=== PATIENT | male | born 1945 | race African-American/Black ===

== ENCOUNTER 2022-11-10 09:12 | Inpatient (IN) | payer MEDICARE, OTHER ==
[~2022-11-10] VITALS: Ht 167.6 cm; Wt 35.8 kg
--- NOTE | 2022-11-10 09:12 | NUR ---
CARLYN FOR ALOC. BLOOD SUGAR LOW AT 23, MD MADE AWARE. IV DEXTROSE GIVEN ORDERED. PATIENT NON-VERBAL UPON ADMISSION. TOLERATING WELL ON ROOM AIR.
[2022-11-10] MEDS ORDERED: DEXTROSE 50%-WATER 50 ML DISP.SYRIN ONE (09:36)
--- NOTE | 2022-11-10 09:53 | NUR ---
COVID SWAB COLLECTED AND SENT TO LAB.
[2022-11-10] MEDS ORDERED: DEXTROSE 50%-WATER 50 ML DISP.SYRIN IVP ONE (10:00)
--- NOTE | 2022-11-10 10:04 | NUR ---
ACCUCHECK RETAKEN FOLLOWING DEXTROSE INFUSION, BG NOW 71. MADE AWARE.
[2022-11-10 10:11] LABS: BASOPHILS % (AUTO) 0.4 % (0.0-2.0); EOSINOPHILS % (AUTO) 0.4 % (0.0-6.0); HEMATOCRIT 46 % (39-51); HEMOGLOBIN 14.7 g/dL (13.5-17.5); LYMPHOCYTES # (AUTO) 0.9 K/uL (0.8-4.8); LYMPHOCYTES % (AUTO) 24.8 % (20.0-44.0); MEAN CORPUSCULAR HGB CONC 32 g/dl (31.0-36.0); MEAN CORPUSCULAR VOLUME 91 fL (80-96); MONOCYTES # (AUTO) 0.2 K/uL (0.1-1.30); MONOCYTES % (AUTO) 5.6 % (2.0-12.0); NEUTROPHILS # (AUTO) 2.6 K/uL (1.8-8.9); NEUTROPHILS % (AUTO) 68.8 % (43.0-81.0); PLATELET COUNT (AUTO) 187 K/uL (150-450); RED BLOOD CELL COUNT(AUTO) 5.08 MIL/uL (4.5-6.0); WHITE BLOOD COUNT (AUTO) 3.8 K/uL (4.3-11.0)
--- NOTE | 2022-11-10 10:54 | NUR ---
FAUSTINA 298 Addendum: 11/10/22 at 1055 by FILI MD NANCY RAMSEY
[2022-11-10 10:56] LABS: SERUM AMMONIA 10 umol/L (11-32)
--- NOTE | 2022-11-10 11:07 | NUR ---
FABIO OLVERA [facility] [phone]
--- NOTE | 2022-11-10 11:08 | NUR ---
LACTIC ACID 2.3, MADE AWARE
[2022-11-10 11:10] LABS: CALCIUM, SERUM 10.3 mg/dL (8.5-10.1); CARBON DIOXIDE 31 mmol/L (21-32); CHLORIDE 109 mmol/L (98-107); CREATININE 1.3 mg/dL (0.6-1.3); GLUCOSE 142 mg/dL (74-106); POTASSIUM 4.4 mmol/L (3.5-5.1); SODIUM SERUM 151 mmol/L (136-145); UREA NITROGEN, BLOOD 36 mg/dL (7-18)
[2022-11-10 11:16] LABS: ALANINE AMINOTRANSFERASE 172 U/L (12-78); ALBUMIN 3.7 g/dL (3.4-5.0); ALKALINE PHOSPHATASE 126 U/L (46-116); ASPARTATE AMINOTRANSFERASE 118 U/L (15-37); BILIRUBIN,DIRECT 0.1 mg/dL (0.0-0.2); BILIRUBIN,TOTAL 0.3 mg/dL (0.2-1.0); TOTAL PROTEIN, SERUM 8.6 g/dL (6.4-8.2)
[2022-11-10] MEDS ORDERED: IV NS 0.9% 1,000 ML BAG IV ONE (11:30)
[2022-11-10 11:45] LABS: THYROID STIMULATING HORMONE 2.241 uIU/mL (0.358-3.74)
--- NOTE | 2022-11-10 13:47 | NUR ---
Report given to ALANA Pedraza
--- NOTE | 2022-11-10 14:00 | NUR ---
THE PATIENT ADMITTED FROM ER WITH GRACE TO ROOM 327-1, ADMIT DX IS AMS. PATIENT AO X 1, ABLE TO RESPONDS ALL STIMULI. NO MEDICAL Hx, INTACT IV LINE ON RIGHT AC 20G. ALL V/S ARE STABLE. CALL LIGHT WITHIN REACH,WILL CONTINUE TO MONITOR.
--- NOTE | 2022-11-10 14:05 | NUR ---
Patient transfered to [facility], all care endorsed to ALANA Pedraza
[2022-11-10] MEDS ORDERED: MAG HYDROX/AL HYDROX/SIMETH 30 ML UDC PO PRN (15:30)
[2022-11-10] MEDS ORDERED: ONDANSETRON HCL/PF 4 MG/2 ML VIAL IVP PRN (15:30)
[2022-11-10] MEDS ORDERED: MAGNESIUM HYDROXIDE 30 ML UDC PO PRN (15:30)
[2022-11-10] MEDS ORDERED: ACETAMINOPHEN 325 MG TABLET PO PRN (15:30)
[2022-11-10] MEDS ORDERED: ZOLPIDEM TARTRATE 5 MG TABLET PO PRN (15:30)
[2022-11-10] MEDS ORDERED: Z GUARD REMEDY 4 OZ OINT TP PRN (15:30)
[2022-11-10] MEDS: IV D5/0.45 NACL 1,000 ML IV PRN (16:09)
[2022-11-10] MEDS: BLOOD SUGAR DIAGNOSTIC 1 EACH STRIP IN SCH (17:35)
--- NOTE | 2022-11-10 18:00 | NUR ---
RN CLOSING NOTE PATIENT RESTING IN BED. IN NO ACUTE DISTRESS OBSERVED. RESPIRATORY EVEN AND UNLABORED IN ROOM AIR, NO SOB OR DESATURATION NOTED. SKIN IS WARM TO TOUCH KEEP CLEAN/DRY. KEPT ELEVATED HOB FOR ENSURE AIRWAY/ASPIRATION PRECAUTION, AND LOWEST BED POSITION. BED ALARM IS ON AT ALL THE TIME FOR SAFETY. CALL LIGHT WITHIN REACH, WILL ENDORSE SENIOR JAVA DEVELOPER.
--- NOTE | 2022-11-10 18:12 | NUR ---
PATIENT RECEIVED ORDER OKAY TO USE STRAIGHT CATH TO COLLECT URINE SAMPLES.
--- NOTE | 2022-11-10 19:30 | NUR ---
SPOOLING OPERATOR OPENING NOTES - RECEIVED PATIENT AWAKE IN BED. A/O X0, HARD OF HEARING, DOES NOT RESPOND TO QUESTIONS BUT MAKES GOOD EYE CONTACT. BREATHING EVEN AND NON-LABORED ON ROOM AIR. NOT IN APPARENT DISTRESS. NO S/S OF PAIN OR DISCOMFORT AT THIS TIME. ON TELE MONITOR READING SINUS BRADYCARDIA AT 55 BPM. HAS RIGHT ANTECUBITAL IV ACCESS #20G WITH D5 1/2NS RUNNING AT 75 ML/HR. NO S/S OF INFILTRATION. ON BED REST AND NEEDS TOTAL ASSIST WITH ADLS. SAFETY PRECAUTIONS IN PLACE: BED LOCKED AND IN LOWEST POSITION, SIDE RAILS UP X3, CALL LIGHT WITHIN REACH. WILL CONTINUE PLAN OF CARE.
[2022-11-10 20:00] VITALS: BP 108/69
[2022-11-10] MEDS: ENOXAPARIN SODIUM 30 MG/0.3 ML DISP.SYRIN SQ SCH (20:55)
--- NOTE | 2022-11-10 23:00 | NUR ---
RECEIVED CALL FROM FABIO (NIECE), SHE SAID SHE IS THE PATIENT'S' POA AND HE HAS NEVER BEEN . DISCUSSED TX PLAN AND VERBALIZED UNDERSTANDING. SHE ALSO GAVE MORE PMI ABOUT THE PATIENT. FORMER HEAVY SMOKER AND ALCOHOL CONSUMPTION. EATS FAST FOOD ONLY BUT THESE PAST FEW DAYS, REFUSING TO EAT. REFUSE TO AMBULATE AND STAYS IN BED ONLY. BEING SEEN BY A HOME HEALTH NURSE. HAS KNEE PAIN BUT REFUSED PAIN PRESCRIPTION FROM PCP. CONFIRMED THAT NIECE WANTS THE PATIENT TO BE FULL CODE AND IF NEEDED, SHE IS OKAY WITH PEG FEEDING.
[2022-11-11] VITALS (72 sets, daily range): BP systolic 72–158; BP diastolic 47–91
[2022-11-11] MEDS: BLOOD SUGAR DIAGNOSTIC 1 EACH STRIP IN SCH ×4 (00:47→17:57)
--- NOTE | 2022-11-11 04:23 | NUR ---
0352: CONSUMER SAFETY INSPECTOR INFORMED ME THAT PATIENT'S HR WENT DOWN TO 30's. HE COVERED HIS FACE WITH A BLANKET AND WHEN I REMOVED IT, PATIENT IS UNRESPONSIVE AND DROOLING. ACTIVATED CODE BLUE. 0353: STARTED CPR, BS 155, BP 96/33 HR 102 0355: EKG SHOWS SINUS TACHYCARDIA 0357: 1ST DOSE OF EPI THEN BICARB GIVEN. PATIENT INTUBATED 0400: 2ND DOSE OF EPI GIVEN. BP 98/24 HR 122 0402: ASYSTOLE. PRONOUNCED BY MARY DILL MD 0407: PATIENT MOVED HIS MOUTH BEFORE POST-MORTEM CARE. ALANA WILSON AND ALANA COOMBS CHECKED FOR PULSE. CALLED RT AND MD, ORDERED TO TRANSFER TO ICU 0422: PATIENT TRANSFERRED TO ICU. REPORT GIVEN TO ALANA HOWARD AND ALANA SABILLON
--- NOTE | 2022-11-11 04:25 | NUR ---
ICU/RN: RECEIVED PT POST CODE BLUE FROM 3W. REPORT FROM JANUARY RN. UNABLE TO OBTAIN BP AT THIS TIME. PACK PULLER ED SPOKE WITH FAMILY AND PT CODE STATUS WAS CHANGED TO DNR. WILL CONTINUE WITH PLAN OF CARE. Addendum: 11/11/22 at 0502 by RAMANDEEP NUÑEZ RN PTS TEMP WAS 86 DEGREES UPON ARRIVAL TO ICU. REWARMING MEASURE INITIATED. GUERLINE HUGGER AND WARM BLANKETS APPLIED.
[2022-11-11] MEDS ORDERED: PHENYLEPHRINE 10 MG/ML VIAL ONE ×3 (04:54→05:22)
[2022-11-11] MEDS: PHENYLEPHRINE 100 MG in IV NS 0.9% 240 ML IV PRN (05:19)
--- NOTE | 2022-11-11 05:52 | NUR ---
ICU/RN: PTS NIECE AT BEDSIDE. GAVE UPDATE ON PTS STATUS.
--- NOTE | 2022-11-11 06:02 | NUR ---
ICU/RN: RT AT BEDSIDE FOR ABG.
--- NOTE | 2022-11-11 06:20 | NUR ---
ICU/RN: STILL UNABLE TO READ PT BP. SPOKE WITH ESHA EDUARDO AND RECEIVED NEW ORDERS FOR SECOND VASOPRESSOR.
--- NOTE | 2022-11-11 06:28 | NUR ---
ICU/RN: RT UNABLE TO OBTAIN ABG. PT IS SEVERELY HYPOTENSIVE.
[2022-11-11] MEDS ORDERED: VASOPRESSIN INJ 40 UNIT in IV NS 0.9% 38 ML IV PRN (06:30)
[2022-11-11 06:37] LABS: ABG BASE EXCESS -7.8 mmol/L; ABG OXYGEN SATURATION 99.5 % (92.0-98.5); ABG PCO2 34.8 mmHg (35.0-45.0); ABG PH 7.317 (7.350-7.450); ABG PO2 476.4 mmHg (75.0-100.0); AaDO2 201.8 mmHg; COHb 0.3 % (0.5-1.5); MetHb 0.3 % (0.0-1.5); O2Hb 98.9 % (94.0-97.0); PEEP,BG 0 cm H2O; SITE, ABG Left Radial; VENT MODE, BG AC 12 500 100% +0; VT, ABG 500 mL
--- NOTE | 2022-11-11 06:47 | NUR ---
ICU/RN: VASOPRESSIN STARTED FOR BP SUPPORT. ABG RESULTS RELAYED TO ESHA EDUARDO.
[2022-11-11 07:07] LABS: BASOPHILS % (AUTO) 0.2 % (0.0-2.0); EOSINOPHILS % (AUTO) 0.3 % (0.0-6.0); HEMATOCRIT 38 % (39-51); HEMOGLOBIN 11.9 g/dL (13.5-17.5); LYMPHOCYTES # (AUTO) 1.4 K/uL (0.8-4.8); LYMPHOCYTES % (AUTO) 14.9 % (20.0-44.0); MEAN CORPUSCULAR HGB CONC 31 g/dl (31.0-36.0); MEAN CORPUSCULAR VOLUME 94 fL (80-96); MONOCYTES # (AUTO) 0.3 K/uL (0.1-1.30); MONOCYTES % (AUTO) 2.8 % (2.0-12.0); NEUTROPHILS # (AUTO) 7.9 K/uL (1.8-8.9); NEUTROPHILS % (AUTO) 81.8 % (43.0-81.0); PLATELET COUNT (AUTO) 116 K/uL (150-450); RED BLOOD CELL COUNT(AUTO) 4.06 MIL/uL (4.5-6.0); WHITE BLOOD COUNT (AUTO) 9.6 K/uL (4.3-11.0)
--- NOTE | 2022-11-11 07:10 | NUR ---
RN OPENING NOTES NIGHTSHIFT ALANA SAUNDERS DISCUSSING PATIENT WITH FAMILY MEMBER, FABIO OLVERA. WADE EXPRESSED WISHES FOR PATIENT TO BE FULL CODE. CODE STATUS ORDERED. WADE SEEN TAKING PICTURES OF BEDSIDE MONITOR SHOWING PATIENTS VITAL SIGNS. PATIENT ON NEOSYNEPHRINE AND VASSOPRESSIN, BOTH INFUSING AT HIGHEST ALLOWABLE INFUSION RATE PER [facility] PROTOCOL. TOLERATING CURRENT VENTILATOR SETTINGS, OXYGEN SATURATION AT 100%. PATIENT ALERT AND ORIENTED TIMES ZERO. IV ACCESS ON RIGHT ANTECUBITAL 20 GAUGE. ORAL CARE GIVEN, PATIENTS BONY PROMINENCES OFFLOADED. SAFETY MEASURES IMPLEMENTED, WILL CONTINUE PLAN OF CARE AND ANTICIPATE NEEDS.
[2022-11-11] MEDS: PANTOPRAZOLE 40 MG TABLET.DR PO SCH (07:25)
[2022-11-11 07:35] LABS: ALANINE AMINOTRANSFERASE 167 U/L (12-78); ALBUMIN 2.5 g/dL (3.4-5.0); ALKALINE PHOSPHATASE 103 U/L (46-116); ASPARTATE AMINOTRANSFERASE 113 U/L (15-37); BILIRUBIN,DIRECT 0.1 mg/dL (0.0-0.2); BILIRUBIN,TOTAL 0.3 mg/dL (0.2-1.0); CARBON DIOXIDE 18 mmol/L (21-32); CHLORIDE 112 mmol/L (98-107); CREATININE 1.5 mg/dL (0.6-1.3); GLUCOSE 198 mg/dL (74-106); MAGNESIUM 2.4 mg/dL (1.8-2.4); PHOSPHORUS 6.4 mg/dL (2.5-4.9); POTASSIUM 4.1 mmol/L (3.5-5.1); SODIUM SERUM 150 mmol/L (136-145); TOTAL PROTEIN, SERUM 6.3 g/dL (6.4-8.2); UREA NITROGEN, BLOOD 32 mg/dL (7-18)
[2022-11-11 07:41] LABS: THYROID STIMULATING HORMONE 3.528 uIU/mL (0.358-3.74)
[2022-11-11] MEDS: IV D5/0.45 NACL 1,000 ML IV PRN ×2 (09:06→22:30)
[2022-11-11] MEDS: Thiamine 100 MG in IV D5W 50 ML IV SCH (10:31)
[2022-11-11] MEDS: methylPREDNISolone SOD SUCC 40 MG/ML VIAL IV SCH ×3 (10:31→21:20)
[2022-11-11] MEDS: CEFTRIAXONE 1 G in IV D5W 50 ML IV SCH (10:58)
[2022-11-11] MEDS: NOREPINEPHRINE 8 MG in IV NS 0.9% 242 ML IV PRN (12:39)
--- NOTE | 2022-11-11 13:01 | NUR ---
PATIENT TEMPERATURE NOTED AT 100 DEGREES FAHRENHEIT. GUERLINE HUGGER AND BLANKETS REMOVED. ICE PACKS PLACED ON BILATERAL AXILLAE AND ON FOREHEAD. WILL REASSESS TEMP IN ONE HOUR.
[2022-11-11 13:33] LABS: ABG BASE EXCESS 0.8 mmol/L; ABG OXYGEN SATURATION 98.2 % (92.0-98.5); ABG PCO2 33.2 mmHg (35.0-45.0); ABG PH 7.474 (7.350-7.450); ABG PO2 109.7 mmHg (75.0-100.0); AaDO2 137.3 mmHg; COHb 0.5 % (0.5-1.5); MetHb 0.3 % (0.0-1.5); O2Hb 97.4 % (94.0-97.0); SITE, ABG Left Radial
--- NOTE | 2022-11-11 14:01 | NUR ---
TEMPERATURE ON RECHECK 98.7 Addendum: 11/11/22 at 1450 by STEPHON JACKMAN RN ICE PACKS REMOVED. COVERED IN REGULAR BLANKET. WILL CONTINUE TO ASSESS
[2022-11-11 15:32] LABS: BASOPHILS % (AUTO) 0.1 % (0.0-2.0); HEMATOCRIT 43 % (39-51); HEMOGLOBIN 13.6 g/dL (13.5-17.5); LYMPHOCYTES # (AUTO) 0.3 K/uL (0.8-4.8); LYMPHOCYTES % (AUTO) 3.6 % (20.0-44.0); MEAN CORPUSCULAR HGB CONC 32 g/dl (31.0-36.0); MEAN CORPUSCULAR VOLUME 91 fL (80-96); MONOCYTES # (AUTO) 0.6 K/uL (0.1-1.30); MONOCYTES % (AUTO) 7.3 % (2.0-12.0); NEUTROPHILS # (AUTO) 7.9 K/uL (1.8-8.9); PLATELET COUNT (AUTO) 133 K/uL (150-450); RED BLOOD CELL COUNT(AUTO) 4.73 MIL/uL (4.5-6.0); WHITE BLOOD COUNT (AUTO) 8.8 K/uL (4.3-11.0)
[2022-11-11 15:48] LABS: ALANINE AMINOTRANSFERASE 156 U/L (12-78); ALBUMIN 2.7 g/dL (3.4-5.0); ALKALINE PHOSPHATASE 104 U/L (46-116); ASPARTATE AMINOTRANSFERASE 114 U/L (15-37); BILIRUBIN,TOTAL 0.3 mg/dL (0.2-1.0); CALCIUM, SERUM 8.8 mg/dL (8.5-10.1); CARBON DIOXIDE 27 mmol/L (21-32); CHLORIDE 111 mmol/L (98-107); CREATININE 1.7 mg/dL (0.6-1.3); GLUCOSE 106 mg/dL (74-106); POTASSIUM 4.1 mmol/L (3.5-5.1); SODIUM SERUM 149 mmol/L (136-145); TOTAL PROTEIN, SERUM 6.6 g/dL (6.4-8.2); UREA NITROGEN, BLOOD 34 mg/dL (7-18)
--- NOTE | 2022-11-11 16:50 | NUR ---
UNABLE TO START PENALOZA CATHETER DUE TO PATIENTS GLANS PENIS ANATOMY. CONDOM CATHETER ATTACHED TO DRAIN OUTPUT.
--- NOTE | 2022-11-11 18:50 | NUR ---
PATIENT REMAINS INTUBATED. ON LEVOPHED AND RAMÓN-SYNEPHIRINE. SAFETY MEASURES IMPLEMENTED. WILL ENDORSE TO NICKY WARNER FOR CONTINUATION OF CARE.
[2022-11-11] MEDS: ENOXAPARIN SODIUM 30 MG/0.3 ML DISP.SYRIN SQ SCH (21:21)
[2022-11-12] VITALS (74 sets, daily range): BP systolic 76–189; BP diastolic 47–104
[2022-11-12] MEDS: BLOOD SUGAR DIAGNOSTIC 1 EACH STRIP IN SCH ×5 (00:33→18:00)
[2022-11-12] MEDS: PHENYLEPHRINE 100 MG in IV NS 0.9% 240 ML IV PRN (01:36)
[2022-11-12 05:05] LABS: BASOPHILS % (AUTO) 0.1 % (0.0-2.0); HEMATOCRIT 36 % (39-51); HEMOGLOBIN 11.6 g/dL (13.5-17.5); MEAN CORPUSCULAR HGB CONC 32 g/dl (31.0-36.0); MEAN CORPUSCULAR VOLUME 90 fL (80-96); MONOCYTES # (AUTO) 0.8 K/uL (0.1-1.30); MONOCYTES % (AUTO) 4.4 % (2.0-12.0); NEUTROPHILS # (AUTO) 15.2 K/uL (1.8-8.9); NEUTROPHILS % (AUTO) 89.5 % (43.0-81.0); PLATELET COUNT (AUTO) 83 K/uL (150-450); RED BLOOD CELL COUNT(AUTO) 4.03 MIL/uL (4.5-6.0)
[2022-11-12 05:21] LABS: CALCIUM, SERUM 7.9 mg/dL (8.5-10.1); CARBON DIOXIDE 28 mmol/L (21-32); CHLORIDE 112 mmol/L (98-107); CREATININE 1.8 mg/dL (0.6-1.3); GLUCOSE 128 mg/dL (74-106); POTASSIUM 4.4 mmol/L (3.5-5.1); SODIUM SERUM 144 mmol/L (136-145); UREA NITROGEN, BLOOD 39 mg/dL (7-18)
[2022-11-12] MEDS: methylPREDNISolone SOD SUCC 40 MG/ML VIAL IV SCH ×3 (05:30→20:07)
--- NOTE | 2022-11-12 07:07 | NUR ---
RN OPENING NOTES RECEIVED REPORT FROM [facility] RN NICKY. PATIENT ON LEVOPHED INFUSING AT 0.4 MCG/KG/MIN. INTUBATED, TOLERATING CURRENT VENTILATOR SETTINGS, OXYGEN SATURATION AT 100%. PATIENT ALERT AND ORIENTED TIMES ZERO. IV ACCESS ON RIGHT ANTECUBITAL 20 GAUGE AND RIGHT UPPER ARM PICC LINE. SINUS RHYTHM ON THE MONITOR AT THIS TIME. SAFETY MEASURES IMPLEMENTED, WILL CONTINUE PLAN OF CARE AND ANTICIPATE NEEDS.
[2022-11-12] MEDS: PANTOPRAZOLE 40 MG TABLET.DR PO SCH (07:09)
[2022-11-12 07:21] LABS: BAND % (MANUAL) 37 % (0.0-5.0); LYMPHOCYTES % (MANUAL) 12 % (16-48); METAMYELOCYTES % 3 % (0-0); MONOCYTES % (MANUAL) 2 % (0-11.0); MYELOCYTES % 3 % (0-0); NEUTROPHILS % (MANUAL) 43 (42-76)
[2022-11-12] MEDS: CEFTRIAXONE 1 G in IV D5W 50 ML IV SCH (09:00)
--- NOTE | 2022-11-12 09:00 | NUR ---
PATIENTS LEVOPHED LINE EMPTY. ALERTED BY BEDSIDE IV PUMP. PHARMACY NOTIFIED. WILL AWAIT NEW BAG OF LEVOPHED AND ASSESS PATIENT.
--- NOTE | 2022-11-12 09:20 | NUR ---
PATIENT TACHYCARDIC. STARTING ON NEOSYNEPHIRINE AT 0.1 MCG/KG/MIN Addendum: 11/12/22 at 0923 by STEPHON JACKMAN RN DISREGARD NOTE. HEART RATE NOW BELOW 100 BPM. NEOSYNEPHIRINE NOT STARTED.
[2022-11-12] MEDS: NOREPINEPHRINE 8 MG in IV NS 0.9% 242 ML IV PRN (09:24)
[2022-11-12] MEDS: Thiamine 100 MG in IV D5W 50 ML IV SCH (09:33)
[2022-11-12] MEDS: INSULIN REGULAR, HUMAN 100 UNIT/ML 3 ML VIAL SQ PRN (12:03)
--- NOTE | 2022-11-12 12:19 | NUR ---
PATIENT ATTEMPTING TO YANK ON ENDOTRACHEAL TUBE. PLACED ON BILATERAL WRIST RESTRAINTS. RESTRAINTS CHECKED TO ENSURE CIRCULATION IS NOT IMPAIRED. WILL RECEIVE ORDER FROM PRIMARY PROVIDER.
--- NOTE | 2022-11-12 12:31 | NUR ---
RECEIVED TELEPHONE ORDER FROM DIETITIAN. PATIENT IS TO BEGIN TUBE FEEDING JEVITY 1.2. START AT 20 MLS/HR INFUSION RATE ADVANCE BY 10 MLS EVERY 6 HOURS TO GOAL OF 70 MLS/HR FOR 24 HOURS.
[2022-11-12] MEDS: IV D5/0.45 NACL 1,000 ML IV PRN (12:37)
[2022-11-12] MEDS ORDERED: SODIUM BICARBONATE SYR 50 MEQ/50 ML DISP.SYRIN IV ONE (12:40)
[2022-11-12] MEDS ORDERED: EPINEPHRINE (1:10,000) SYRINGE 1 MG/10 ML DISP.SYRIN IVP ONE (12:40)
[2022-11-12] MEDS: MEROPENEM 500 MG in IV NS 0.9% 50 ML IV SCH (12:45)
--- NOTE | 2022-11-12 17:40 | NUR ---
NOTIFIED DOCTOR TRAN OF PATIENTS SYSTOLIC BLOOD PRESSURE OF OF 165 AT 1704. RECEIVED ORDER FROM DOCTOR TRAN AT 7694 FOR HYDRALAZINE 10 MG IV PUSH EVERY 4 HOURS NEEDED FOR SYSTOLIC BLOOD PRESSURE GREATER THAN 160. WILL CARRY OUT ORDER.
--- NOTE | 2022-11-12 19:13 | NUR ---
HANDOFF GIVEN TO ALANA ELIZABETH FOR CONTINUATION OF CARE.
--- NOTE | 2022-11-12 19:30 | NUR ---
PATIENT AWAKE. A/OX0. INTUBATED, TOLERATING CURRENT VENTILATOR SETTINGS, OXYGEN SATURATION AT 100%. IV ACCESS ON RIGHT ANTECUBITAL 20 GAUGE AND RIGHT UPPER ARM PICC LINE INFUSING D5 1/2 NS AT 75 ML/HR. SINUS TACH ON THE MONITOR AT THIS TIME. SAFETY MEASURES IN PLACE. WILL CONTINUE PLAN OF CARE AND ANTICIPATE NEEDS.
[2022-11-12] MEDS: ENOXAPARIN SODIUM 30 MG/0.3 ML DISP.SYRIN SQ SCH (20:27)
[2022-11-12] MEDS: hydrALAZINE HCL IV 20 MG VIAL IV PRN (20:58)
--- NOTE | 2022-11-12 21:15 | NUR ---
BP 161/84, hr 103. PRN Apresoline 10mg IV given.
[2022-11-12] MEDS: JEVITY 1.2 CAL 1,000 ML BOTTLE NG PRN (22:22)
[2022-11-13] VITALS (29 sets, daily range): BP systolic 105–174; BP diastolic 54–115
[2022-11-13] MEDS: MEROPENEM 500 MG in IV NS 0.9% 50 ML IV SCH ×2 (00:02→16:22)
[2022-11-13] MEDS: BLOOD SUGAR DIAGNOSTIC 1 EACH STRIP IN SCH ×5 (00:02→23:45)
[2022-11-13] MEDS: INSULIN REGULAR, HUMAN 100 UNIT/ML 3 ML VIAL SQ PRN ×4 (00:04→23:48)
[2022-11-13] MEDS: IV D5/0.45 NACL 1,000 ML IV PRN (02:23)
[2022-11-13] MEDS: methylPREDNISolone SOD SUCC 40 MG/ML VIAL IV SCH ×3 (05:10→20:24)
[2022-11-13 05:43] LABS: BASOPHILS % (AUTO) 0.2 % (0.0-2.0); HEMATOCRIT 34 % (39-51); LYMPHOCYTES # (AUTO) 0.5 K/uL (0.8-4.8); LYMPHOCYTES % (AUTO) 3.7 % (20.0-44.0); MEAN CORPUSCULAR HGB CONC 32 g/dl (31.0-36.0); MEAN CORPUSCULAR VOLUME 90 fL (80-96); MONOCYTES # (AUTO) 0.8 K/uL (0.1-1.30); NEUTROPHILS # (AUTO) 12.5 K/uL (1.8-8.9); NEUTROPHILS % (AUTO) 90.1 % (43.0-81.0); PLATELET COUNT (AUTO) 59 K/uL (150-450); RED BLOOD CELL COUNT(AUTO) 3.82 MIL/uL (4.5-6.0); WHITE BLOOD COUNT (AUTO) 13.9 K/uL (4.3-11.0)
[2022-11-13 05:55] LABS: ALBUMIN 2.1 g/dL (3.4-5.0); BILIRUBIN,DIRECT 0.1 mg/dL (0.0-0.2); BILIRUBIN,TOTAL 0.3 mg/dL (0.2-1.0); TOTAL PROTEIN, SERUM 5.9 g/dL (6.4-8.2)
[2022-11-13 05:56] LABS: CALCIUM, SERUM 8.6 mg/dL (8.5-10.1); CARBON DIOXIDE 25 mmol/L (21-32); CHLORIDE 111 mmol/L (98-107); CREATININE 1.7 mg/dL (0.6-1.3); GLUCOSE 72 mg/dL (74-106); MAGNESIUM 1.9 mg/dL (1.8-2.4); PHOSPHORUS 2.8 mg/dL (2.5-4.9); POTASSIUM 3.9 mmol/L (3.5-5.1); SODIUM SERUM 145 mmol/L (136-145); UREA NITROGEN, BLOOD 37 mg/dL (7-18)
--- NOTE | 2022-11-13 06:51 | NUR ---
PT AWAKE. A/OX0. INTUBATED, TOLERATING CURRENT VENTILATOR SETTINGS, OXYGEN SATURATION AT 100%. IV ACCESS ON RIGHT ANTECUBITAL 20 GAUGE AND RIGHT UPPER ARM PICC LINE INFUSING D5 1/2 NS AT 75 ML/HR. SINUS TACH ON THE MONITOR AT THIS TIME. BILATERAL SOFT WRIST RESTRAINTS IN PLACE. CHECKED FOR CIRCULATION. NEEDS ATTENDED. DUE MEDS AND PRN MED GIVEN NEEDED AND ORDERED. SAFETY MEASURES MAINTAINED. WILL ENDORSE TO NEXT NURSE ON DUTY FOR CONTINUITY OF CARE.
[2022-11-13] MEDS: PANTOPRAZOLE 40 MG/PACK PACK NG SCH (08:53)
[2022-11-13] MEDS: Thiamine 100 MG in IV D5W 50 ML IV SCH (08:56)
--- NOTE | 2022-11-13 13:36 | NUR ---
EEG performed at bedside
[2022-11-13] MEDS ORDERED: LEVETIRACETAM (500MG) 1,000 MG in IV NS 0.9% 100 ML IV ONE (15:30)
[2022-11-13 17:11] LABS: BAND % (MANUAL) 9 % (0.0-5.0); LYMPHOCYTES % (MANUAL) 8 % (16-48); MONOCYTES % (MANUAL) 8 % (0-11.0); NEUTROPHILS % (MANUAL) 75 (42-76)
--- NOTE | 2022-11-13 18:00 | NUR ---
GROUP INSURANCE SPECIALIST NOTE; 7A SHIFT PT REMAINS OBTUNDED. DOES NOT FOLLOW ANY COMMANDS SEIZURE EPISODES AND ACTIVITY NOTED. KEPPRA PRESCRIBED REMAINS INTUBATED, CONT CURRENT VENTILATOR SETTINGS, OXYGEN SATURATION AT 100%. IV ACCESS ON RIGHT ANTECUBITAL 20 GAUGE AND RIGHT UPPER ARM PICC LINE INFUSING REMAINS SINUS TACH ON THE MONITOR AT THIS TIME. BILATERAL SOFT WRIST RESTRAINTS IN PLACE. CONT TUBE FEEDS TOLERATED REMAINS INC OF BOWEL AND BLADDER. CONT TO IMPLEMENT SAFETY MEASURES CONT TO IMPLEMENT PLAN OF CARE.
[2022-11-13] MEDS ORDERED: IV NS 0.9% 500 ML IV ONE (19:30)
--- NOTE | 2022-11-13 19:30 | NUR ---
PT OBTUNDED, DOES NOT FOLLOW ANY COMMANDS. INTUBATED, TOLERATING CURRENT VENTILATOR SETTINGS, OXYGEN SATURATION AT 100%. IV ACCESS ON RIGHT ANTECUBITAL 20 GAUGE AND RIGHT UPPER ARM PICC LINE. SINUS TACH ON THE MONITOR AT THIS TIME. CONT TUBE FEEDS TOLERATED. REMAINS INC OF BOWEL AND BLADDER. BILATERAL SOFT WRIST RESTRAINTS IN PLACE. CHECKED FOR CIRCULATION. SAFETY MEASURES IN PLACE. WILL CONTINUE OF CARE.
[2022-11-13] MEDS: hydrALAZINE HCL IV 20 MG VIAL IV PRN (20:25)
[2022-11-13] MEDS: ENOXAPARIN SODIUM 30 MG/0.3 ML DISP.SYRIN SQ SCH (20:40)
--- NOTE | 2022-11-13 20:40 | NUR ---
PT PLATELET 59. ATTENDING PHYSICIAN INFORMED. WILL HOLD LOVENOX 30MG SQ Q24H ORDERED.
[2022-11-14] VITALS (80 sets, daily range): BP systolic 65–182; BP diastolic 34–95
[2022-11-14] MEDS: IV NS 0.9% 250 ML IV PRN (00:10)
[2022-11-14] MEDS: MEROPENEM 500 MG in IV NS 0.9% 50 ML IV SCH ×2 (00:11→11:51)
--- NOTE | 2022-11-14 03:22 | NUR ---
Seizure facial twitching, Lt upper extremity, bilateral lower extremity, episode lasting 5 mins. Charge nurse and Attending physician informed. Administered Ativan 2mg IV once as ordered. Will continue to monitor.
[2022-11-14] MEDS ORDERED: LORAZEPAM INJ 2 MG/ML VIAL IV ONE (03:30)
[2022-11-14] MEDS ORDERED: LEVETIRACETAM SOL (5 ML) 100 MG/ML UDC ONE (03:46)
[2022-11-14] MEDS: LEVETIRACETAM (500MG) 500 MG in IV NS 0.9% 100 ML IV SCH ×2 (03:50→17:26)
[2022-11-14] MEDS: NOREPINEPHRINE 8 MG in IV NS 0.9% 242 ML IV PRN (04:22)
[2022-11-14] MEDS: methylPREDNISolone SOD SUCC 40 MG/ML VIAL IV SCH ×3 (04:56→22:08)
[2022-11-14] MEDS: BLOOD SUGAR DIAGNOSTIC 1 EACH STRIP IN SCH ×3 (05:14→17:28)
[2022-11-14] MEDS: INSULIN REGULAR, HUMAN 100 UNIT/ML 3 ML VIAL SQ PRN ×3 (05:14→17:30)
--- NOTE | 2022-11-14 06:47 | NUR ---
PT OBTUNDED, DOES NOT FOLLOW ANY COMMANDS. INTUBATED, TOLERATING CURRENT VENTILATOR SETTINGS, OXYGEN SATURATION AT 100%. IV ACCESS ON RIGHT ANTECUBITAL 20 GAUGE AND RIGHT UPPER ARM PICC LINE INFUSING LEVO AT 0.3 MCG/KG/MIN. SINUS RHYTHM ON THE MONITOR AT THIS TIME. CONT TUBE FEEDING TOLERATED. REMAINS INC OF BOWEL AND BLADDER. BILATERAL SOFT WRIST RESTRAINTS IN PLACE. CHECKED FOR CIRCULATION. NEEDS ATTENDED. DUE MEDS GIVEN. SAFETY MEASURES MAINTAINED. WILL ENDORSE TO NEXT NURSE ON DUTY FOR CONTINUITY OF CARE.
[2022-11-14] MEDS: PANTOPRAZOLE 40 MG/PACK PACK NG SCH (08:08)
[2022-11-14 08:51] LABS: ABG BASE EXCESS 3.1 mmol/L; ABG OXYGEN SATURATION 97.1 % (92.0-98.5); ABG PCO2 33.6 mmHg (35.0-45.0); ABG PH 7.507 (7.350-7.450); ABG PO2 88.9 mmHg (75.0-100.0); AaDO2 157.7 mmHg; COHb 0.3 % (0.5-1.5); MetHb 0.2 % (0.0-1.5); O2Hb 96.6 % (94.0-97.0); PEEP,BG 0 cm H2O; SITE, ABG Right Radial; VT, ABG 450 mL
[2022-11-14] MEDS: THIAMINE HCL 100 MG TABLET GT SCH (10:01)
--- NOTE | 2022-11-14 19:05 | NUR ---
RN OPENING NOTES PATIENT RECEIVED IN BED, OBTUNDED. PT IS ORALLY INTUBATED SIZE 7.5 AND 23 CM BY THE LIP WITH VENT SETTING RATE -12, TIDAL VOLUME- 450, FIO2- 40%, PEEP-0. NO SOB NOTED, NO S/S DISTRESS, AFEBRILE, NO S/S OF DISTRESS NOTED. NOTED WITH MAURILIO PICC LINE ANC RAC # 20 PERIPHERAL LINE, FLUSHED WITH NS, NO S/S OF INFILTRATION NOTED. RUNNING WITH LEVO @ 0.2 MCG/KG/MIN. NOTED WITH RIGHT NARE NGT, VERIFIED PLACEMENT BY AUSCULTATION, NO RESIDUAL NOTED UPON ASPIRATION RUNNING WITH JEVITY 1.2 AT 50 ML/HR, HEAD OF BED KEPT ELEVATED. ALL SAFETY PRECAUTION PROVIDED. BED IN LOWEST POSITION, LOCKED. CALL LIGHT WITHIN REACH, SIDE RAILS UP X3. WILL CONTINUE TO MONITOR.
--- NOTE | 2022-11-14 21:30 | NUR ---
RN NOTES PENALOZA CATHETER INSERTED ASEPTICALLY, 12FR X 5CC. PROCEDURE TOLERATED WELL. DRAINING CLEAR YELLOW URINE VIA GRAVITY.
[2022-11-14] MEDS: ENOXAPARIN SODIUM 30 MG/0.3 ML DISP.SYRIN SQ SCH (22:09)
[2022-11-15] VITALS (81 sets, daily range): BP systolic 89–149; BP diastolic 54–75
[2022-11-15] MEDS: BLOOD SUGAR DIAGNOSTIC 1 EACH STRIP IN SCH ×5 (00:32→23:09)
[2022-11-15] MEDS: INSULIN REGULAR, HUMAN 100 UNIT/ML 3 ML VIAL SQ PRN ×5 (00:36→23:11)
[2022-11-15] MEDS: MEROPENEM 500 MG in IV NS 0.9% 50 ML IV SCH ×2 (01:25→12:32)
[2022-11-15] MEDS: IV NS 0.9% 250 ML IV PRN ×2 (01:55→21:16)
[2022-11-15] MEDS: LEVETIRACETAM (500MG) 500 MG in IV NS 0.9% 100 ML IV SCH ×2 (03:53→15:31)
[2022-11-15] MEDS: NOREPINEPHRINE 8 MG in IV NS 0.9% 242 ML IV PRN (04:05)
[2022-11-15] MEDS: methylPREDNISolone SOD SUCC 40 MG/ML VIAL IV SCH ×3 (05:17→20:01)
--- NOTE | 2022-11-15 06:17 | NUR ---
RN NOTES BLOOD SUGAR 116 MG/DL, NO INSULIN COVERAGE PER SLIDING SCALE, NO S/S OF HYPOGLYCEMIA NOTED.
--- NOTE | 2022-11-15 07:37 | NUR ---
RECIEVE THE PATIENT ON VENTILATOR,AC 12 TV 400 FIO2 40%O2SAT 99% AT THIS TIME,TEMP 98.1 IS ON LEVOPHED GTT FOR SUPPORTING BLOOD PRESSURE ,MOVES EXTRIMITIES TO PAIN STIMULI ,UPPER ARMS ARE MORE WEAK BUT MOVES HAS GAG REFLEX ,RT PUPIL IS REACT TO LIGHT BUT LEFT PUPIL NOT REACT TO LIGHT BOTH PUPUILS ARE ROUND AND ABOUT 2MMIS FULL CODE AT THIS TIME IS ON TUBE FEEDING WITH JEVITY 1.2 RUNS 50 ML PER HOUR BUT GOAL IS 70MLFOLEY IN PLACE
[2022-11-15] MEDS: PANTOPRAZOLE 40 MG/PACK PACK NG SCH (08:06)
[2022-11-15] MEDS: THIAMINE HCL 100 MG TABLET GT SCH (09:27)
--- NOTE | 2022-11-15 18:22 | NUR ---
RN,NOTE PATIENT ON VENTILATOR ,SAME VENT SETTING, AC12, TV 400 FIO2 30% [id number] 96% AT THIS TIME OPE EYES AT THE TIMES BUT NOT TO COMMAND, MOVES UPPER AND LOWER EXTIMITIES TO PAIN STIMULI BUT IS WEAK HAS GAG REFLEX SR ON MONITOR TEMP 97.7 AT THIS TIME ,LEVOPHED GTT WAS TITRATE DOWN AND AT 1800 WAS TURNED OFF,PENALOZA IN PLACE ,GOOD URINE OUTPUT NGTUBE FEEDING WITH JEVITY 1.2 70ML PER HOUR CONTINIUED BILATERAL SOFT RESTRAINT IN PLACE FOR SAFETY PRECAUTION Addendum: 11/15/22 at 1833 by CATHIE VALLADARES RN FIO2 40% AT THIS TIME
--- NOTE | 2022-11-15 20:00 | NUR ---
ICU/RN: PT NOTED WITH SKIN PROBLEM OCCURRENCE. PHOTO TAKEN AND PLACED IN CHART. WOUND CONSULT ORDERED.
[2022-11-15] MEDS: ENOXAPARIN SODIUM 30 MG/0.3 ML DISP.SYRIN SQ SCH (20:02)
[2022-11-15] MEDS: JEVITY 1.2 CAL 1,000 ML BOTTLE NG PRN (21:16)
[2022-11-16] VITALS (59 sets, daily range): BP systolic 74–159; BP diastolic 40–89
[2022-11-16] MEDS: MEROPENEM 500 MG in IV NS 0.9% 50 ML IV SCH ×2 (01:00→12:13)
[2022-11-16] MEDS: LEVETIRACETAM (500MG) 500 MG in IV NS 0.9% 100 ML IV SCH ×2 (03:00→17:01)
[2022-11-16] MEDS: BLOOD SUGAR DIAGNOSTIC 1 EACH STRIP IN SCH ×4 (05:04→23:58)
[2022-11-16] MEDS: methylPREDNISolone SOD SUCC 40 MG/ML VIAL IV SCH ×3 (05:04→21:15)
[2022-11-16] MEDS: INSULIN REGULAR, HUMAN 100 UNIT/ML 3 ML VIAL SQ PRN ×2 (05:19→18:53)
--- NOTE | 2022-11-16 07:12 | NUR ---
WOUND CARE CONSULT: PT PRESENTS WITH CACHEXIA, SACRAL DEEP TISSUE INJURY IN EVOLUTION WITH SCARRING NOTED TO HIPS AND RT ANKLE AREA. RECOMMENDATIONS MADE FOR SKIN PROTECTION AND WOUND CARE. DISCUSSED WITH NURSING STAFF. PT NOTED TO HAVE MULTIPLE CO-MORBIDITIES INCLUDING HYPOXEMIC RESPIRATORY FAILURE (CURRENTLY INTUBATED FOLLOWING CARDIAC ARREST), SHOCK, ENCEPHALOPATHY, LACTIC ACIDOSIS, ACUTE KIDNEY INJURY, SEVERE HYPOGLYCEMIA ON ADMISSION, ANEMIA, DEPRESSION, CACHEXIA WITH CHRONIC MALNUTRITION. DUE TO ABOVE CO-MORBIDITIES, FURTHER SKIN BREAKDOWN MAY BE UNAVOIDABLE. MD IN AGREEMENT WITH PLAN OF CARE. Addendum: 11/16/22 at 0717 by MARITZA STRAUSS WNDNU Amended: Links added.
[2022-11-16] MEDS: PANTOPRAZOLE 40 MG/PACK PACK NG SCH (08:02)
[2022-11-16] MEDS: THIAMINE HCL 100 MG TABLET GT SCH (09:31)
[2022-11-16] MEDS: JEVITY 1.2 CAL 1,000 ML BOTTLE NG PRN (12:16)
[2022-11-16 14:11] LABS: CALCIUM, SERUM 8.4 mg/dL (8.5-10.1); CARBON DIOXIDE 34 mmol/L (21-32); CHLORIDE 114 mmol/L (98-107); CREATININE 0.9 mg/dL (0.6-1.3); GLUCOSE 141 mg/dL (74-106); POTASSIUM 4.1 mmol/L (3.5-5.1); SODIUM SERUM 152 mmol/L (136-145); UREA NITROGEN, BLOOD 38 mg/dL (7-18)
[2022-11-16 14:42] LABS: LYMPHOCYTES # (AUTO) 0.5 K/uL (0.8-4.8); MONOCYTES # (AUTO) 0.7 K/uL (0.1-1.30)
[2022-11-16 14:54] LABS: HEMATOCRIT 29 % (39-51); HEMOGLOBIN 9.2 g/dL (13.5-17.5); LYMPHOCYTES % (AUTO) 3.6 % (20.0-44.0); MEAN CORPUSCULAR HGB CONC 32 g/dl (31.0-36.0); MEAN CORPUSCULAR VOLUME 90 fL (80-96); MONOCYTES % (AUTO) 4.8 % (2.0-12.0); NEUTROPHILS # (AUTO) 12.9 K/uL (1.8-8.9); NEUTROPHILS % (AUTO) 91.6 % (43.0-81.0); PLATELET COUNT (AUTO) 99 K/uL (150-450); RED BLOOD CELL COUNT(AUTO) 3.23 MIL/uL (4.5-6.0)
[2022-11-16 17:47] LABS: LYMPHOCYTES % (MANUAL) 3 % (16-48); MONOCYTES % (MANUAL) 4 % (0-11.0); NEUTROPHILS % (MANUAL) 93 (42-76)
--- NOTE | 2022-11-16 19:02 | NUR ---
BEDSIDE REPORT GIVEN TO BRITT , SUSAN MATTRESS IN-PLACE. ENDORSED FOR CONTINUITY OF CARE.
[2022-11-16] MEDS: IV NS 0.9% 250 ML IV PRN (21:15)
[2022-11-17] VITALS (24 sets, daily range): BP systolic 118–158; BP diastolic 68–93
[2022-11-17] MEDS: MEROPENEM 500 MG in IV NS 0.9% 50 ML IV SCH ×2 (01:30→13:15)
[2022-11-17] MEDS: LEVETIRACETAM (500MG) 500 MG in IV NS 0.9% 100 ML IV SCH (03:31)
[2022-11-17] MEDS: JEVITY 1.2 CAL 1,000 ML BOTTLE NG PRN ×2 (03:31→17:00)
[2022-11-17 04:49] LABS: HEMATOCRIT 30 % (39-51); HEMOGLOBIN 9.4 g/dL (13.5-17.5); LYMPHOCYTES # (AUTO) 0.5 K/uL (0.8-4.8); LYMPHOCYTES % (AUTO) 4.6 % (20.0-44.0); MEAN CORPUSCULAR HGB CONC 32 g/dl (31.0-36.0); MEAN CORPUSCULAR VOLUME 90 fL (80-96); MONOCYTES # (AUTO) 0.7 K/uL (0.1-1.30); MONOCYTES % (AUTO) 5.9 % (2.0-12.0); NEUTROPHILS # (AUTO) 9.9 K/uL (1.8-8.9); NEUTROPHILS % (AUTO) 89.5 % (43.0-81.0); PLATELET COUNT (AUTO) 109 K/uL (150-450); RED BLOOD CELL COUNT(AUTO) 3.28 MIL/uL (4.5-6.0); WHITE BLOOD COUNT (AUTO) 11.1 K/uL (4.3-11.0)
[2022-11-17 05:12] LABS: CALCIUM, SERUM 8.4 mg/dL (8.5-10.1); CARBON DIOXIDE 32 mmol/L (21-32); CHLORIDE 113 mmol/L (98-107); CREATININE 0.9 mg/dL (0.6-1.3); GLUCOSE 232 mg/dL (74-106); MAGNESIUM 2.5 mg/dL (1.8-2.4); PHOSPHORUS 3.2 mg/dL (2.5-4.9); POTASSIUM 4.2 mmol/L (3.5-5.1); SODIUM SERUM 151 mmol/L (136-145); UREA NITROGEN, BLOOD 38 mg/dL (7-18)
[2022-11-17] MEDS: BLOOD SUGAR DIAGNOSTIC 1 EACH STRIP IN SCH ×4 (05:16→23:06)
[2022-11-17] MEDS: methylPREDNISolone SOD SUCC 40 MG/ML VIAL IV SCH ×3 (05:16→21:13)
[2022-11-17] MEDS: INSULIN REGULAR, HUMAN 100 UNIT/ML 3 ML VIAL SQ PRN ×2 (05:48→23:08)
[2022-11-17] MEDS: PANTOPRAZOLE 40 MG/PACK PACK NG SCH (07:46)
[2022-11-17] MEDS: THIAMINE HCL 100 MG TABLET GT SCH (08:49)
[2022-11-17] MEDS: LEVETIRACETAM SOL (5 ML) 100 MG/ML UDC GT SCH (17:00)
--- NOTE | 2022-11-17 18:58 | NUR ---
PATIENT NO SSX OF ACUTE DISTRESS NOTED, ALL NEEDS ANTICIPATED/ATTENDED. PATIENT ROUNDING DONE BY UNIT REACTOR OPERATOR PRN/HOURLY. WILL ENDORSE TO NEXT SHIFT RN.
[2022-11-18] VITALS (25 sets, daily range): BP systolic 108–167; BP diastolic 61–92
[2022-11-18] MEDS: IV NS 0.9% 250 ML IV PRN
[2022-11-18] MEDS: LEVETIRACETAM SOL (5 ML) 100 MG/ML UDC GT SCH ×2 (04:04→16:18)
[2022-11-18] MEDS: methylPREDNISolone SOD SUCC 40 MG/ML VIAL IV SCH (04:04)
[2022-11-18 05:07] LABS: HEMATOCRIT 32 % (39-51); HEMOGLOBIN 10.2 g/dL (13.5-17.5); LYMPHOCYTES # (AUTO) 0.6 K/uL (0.8-4.8); MEAN CORPUSCULAR HGB CONC 32 g/dl (31.0-36.0); MEAN CORPUSCULAR VOLUME 90 fL (80-96); MONOCYTES # (AUTO) 0.7 K/uL (0.1-1.30); MONOCYTES % (AUTO) 6.9 % (2.0-12.0); NEUTROPHILS # (AUTO) 8.5 K/uL (1.8-8.9); NEUTROPHILS % (AUTO) 87.1 % (43.0-81.0); PLATELET COUNT (AUTO) 156 K/uL (150-450); RED BLOOD CELL COUNT(AUTO) 3.53 MIL/uL (4.5-6.0); WHITE BLOOD COUNT (AUTO) 9.8 K/uL (4.3-11.0)
[2022-11-18 05:22] LABS: CALCIUM, SERUM 8.4 mg/dL (8.5-10.1); CARBON DIOXIDE 34 mmol/L (21-32); CHLORIDE 110 mmol/L (98-107); CREATININE 0.8 mg/dL (0.6-1.3); GLUCOSE 66 mg/dL (74-106); MAGNESIUM 2.6 mg/dL (1.8-2.4); PHOSPHORUS 3.5 mg/dL (2.5-4.9); POTASSIUM 4.5 mmol/L (3.5-5.1); SODIUM SERUM 148 mmol/L (136-145); UREA NITROGEN, BLOOD 37 mg/dL (7-18)
[2022-11-18] MEDS: BLOOD SUGAR DIAGNOSTIC 1 EACH STRIP IN SCH ×3 (06:13→17:59)
--- NOTE | 2022-11-18 07:34 | NUR ---
GROUND DEFENCE OFFICER Note GCS E1VTM5, bilateral pupils 2mm PEARLLA. Gag and cough reflex are both present. Limb power right UL 3/5 while the rest of the limbs are 0/0. ip attorney showed SR HR 96/min. BP 144/87mmHg. Intubated with size 7.5, marking at 23cm. Ventilator supported by AC mode, rate 12/min, TV 400mL, SpO2 100% with FiO2 35% and zero PEEP. Suctioned 1-2+ from both yesenia-pharyngeal and ETT. Circulation with bilateral soft restraints use is good. NGT is in-situ and confirmed placement by auscultation, 2-3mL of undigested milk aspirated. Mistry is in place, collecting clear and yellowish fluid. Will continue monitoring and care.
[2022-11-18] MEDS: PANTOPRAZOLE 40 MG/PACK PACK NG SCH (08:13)
[2022-11-18 08:18] LABS: LYMPHOCYTES % (MANUAL) 7 % (16-48); MONOCYTES % (MANUAL) 8 % (0-11.0); NEUTROPHILS % (MANUAL) 85 (42-76)
[2022-11-18] MEDS: THIAMINE HCL 100 MG TABLET GT SCH (09:30)
--- NOTE | 2022-11-18 10:47 | NUR ---
Urine sample was sent for urinalysis.
[2022-11-18] MEDS: INSULIN REGULAR, HUMAN 100 UNIT/ML 3 ML VIAL SQ PRN (11:44)
[2022-11-18] MEDS: MEROPENEM 500 MG in IV NS 0.9% 50 ML IV SCH ×3 (12:10)
[2022-11-18] MEDS: JEVITY 1.2 CAL 1,000 ML BOTTLE NG PRN (12:16)
[2022-11-19] VITALS (29 sets, daily range): BP systolic 86–192; BP diastolic 46–109
[2022-11-19] MEDS: MEROPENEM 500 MG in IV NS 0.9% 50 ML IV SCH ×2 (01:18→12:38)
--- NOTE | 2022-11-19 02:08 | NUR ---
ADMINISTRATIVE SERVICES MANAGER SPUTUM COLLECTED BY RT AND CALLED LAB FOR SUPERVISOR PIPELINE.
[2022-11-19] MEDS: IV NS 0.9% 250 ML IV PRN ×2 (02:38→21:57)
[2022-11-19] MEDS: LEVETIRACETAM SOL (5 ML) 100 MG/ML UDC GT SCH (03:55)
[2022-11-19 04:43] LABS: BASOPHILS % (AUTO) 0.1 % (0.0-2.0); EOSINOPHILS % (AUTO) 0.6 % (0.0-6.0); HEMATOCRIT 28 % (39-51); HEMOGLOBIN 9.2 g/dL (13.5-17.5); LYMPHOCYTES # (AUTO) 1.3 K/uL (0.8-4.8); MEAN CORPUSCULAR HGB CONC 33 g/dl (31.0-36.0); MEAN CORPUSCULAR VOLUME 90 fL (80-96); MONOCYTES # (AUTO) 0.8 K/uL (0.1-1.30); MONOCYTES % (AUTO) 7.7 % (2.0-12.0); NEUTROPHILS # (AUTO) 7.9 K/uL (1.8-8.9); NEUTROPHILS % (AUTO) 78.6 % (43.0-81.0); PLATELET COUNT (AUTO) 162 K/uL (150-450); RED BLOOD CELL COUNT(AUTO) 3.07 MIL/uL (4.5-6.0)
[2022-11-19 05:06] LABS: CALCIUM, SERUM 7.9 mg/dL (8.5-10.1); CREATININE 0.8 mg/dL (0.6-1.3); MAGNESIUM 2.4 mg/dL (1.8-2.4); PHOSPHORUS 2.7 mg/dL (2.5-4.9)
[2022-11-19] MEDS: BLOOD SUGAR DIAGNOSTIC 1 EACH STRIP IN SCH ×5 (06:15→23:25)
[2022-11-19 06:42] LABS: ALBUMIN 1.9 g/dL (3.4-5.0); BILIRUBIN,DIRECT 0.1 mg/dL (0.0-0.2); BILIRUBIN,TOTAL 0.4 mg/dL (0.2-1.0); TOTAL PROTEIN, SERUM 5.2 g/dL (6.4-8.2)
--- NOTE | 2022-11-19 07:05 | NUR ---
RN OPENING NOTES RECEIVED REPORT FROM [facility] METAL HANGER. PATIENT REMAINS INTUBATED, TOLERATING VENT SETTINGS WELL. SINUS RYTHYM ON THE MONITOR AT THIS TIME. LEFT UPPER ARM PICC LINE ATTACHED, INFUSING NORMAL SALINE TKO. NGT TUBE IN PLACE RUNNING FEEDING ORDERED, NO RESIDUALS. BILATERAL WRIST RESTRAINTS IN PLACE, CIRCULATION IS WNL. PENALOZA CATHETER DRAINING YELLOW OUTPUT. SAFETY MEASURES IMPLEMENTED, WILL CONTINUE PLAN OF CARE AND ANTICIPATE NEEDS.
[2022-11-19] MEDS: PANTOPRAZOLE 40 MG/PACK PACK NG SCH (07:54)
[2022-11-19] MEDS ORDERED: MAG HYDROX/AL HYDROX/SIMETH 30 ML UDC NG PRN (08:33)
[2022-11-19] MEDS ORDERED: MAGNESIUM HYDROXIDE 30 ML UDC NG PRN (08:33)
[2022-11-19] MEDS: LEVETIRACETAM SOL (5 ML) 100 MG/ML UDC NG SCH ×2 (08:49→20:40)
[2022-11-19] MEDS: ENOXAPARIN SODIUM 40 MG/0.4 ML DISP.SYRIN SQ SCH (08:50)
[2022-11-19] MEDS: THIAMINE HCL 100 MG TABLET GT SCH (08:50)
[2022-11-19] MEDS ORDERED: methylPREDNISolone SOD SUCC 40 MG/ML VIAL IV SCH (09:00)
--- NOTE | 2022-11-19 10:00 | NUR ---
NASOGASTRIC TUBE CLOGGED. ATTEMPTED MULTIPLE INTERVENTIONS TO UNCLOG TUBE. CHARGE NURSE SHERMAN ASSITED IN ATTEMPTING TO UNCLOG TUBE. INTERVENTIONS UNSUCCESSFUL. NASOGASTRIC TUBE DISCONTINUED. WILL MAINTAIN PATIENT NPO DUE TO PROCEDURE FOR TRACH PLACEMENT.
[2022-11-19] MEDS ORDERED: MORPHINE SULFATE INJ 4 MG/ML DISP.SYRIN IV PRN (16:30)
[2022-11-19] MEDS ORDERED: ETOMIDATE 2 MG/ML VIAL IV ONE (18:19)
[2022-11-19] MEDS ORDERED: SODIUM BICARBONATE SYR 50 MEQ/50 ML DISP.SYRIN IV ONE (18:19)
[2022-11-19] MEDS ORDERED: CALCIUM CHLORIDE 1,000 MG/10 ML DISP.SYRIN IV ONE (18:19)
[2022-11-19] MEDS ORDERED: AMIODARONE 150 MG/3 ML VIAL IV ONE (18:19)
[2022-11-19] MEDS ORDERED: ROCURONIUM BROMIDE 50 MG/5 ML IV ONE (18:19)
--- NOTE | 2022-11-19 18:41 | NUR ---
RN OPENING NOTES PATIENT NOW WITH NEW TRACH TUBE, TOLERATING VENT SETTINGS WELL. SINUS RYTHYM ON THE MONITOR AT THIS TIME. LEFT UPPER ARM PICC LINE ATTACHED, INFUSING NORMAL SALINE TKO. NEW NGT ON LEFT NARE ORIGINALLY AT 55 CM, ADVANCED AT 1830 TO 65 CM PER RADIOLOGY RECOMENDATION. NGT TUBE IN PLACE RUNNING FEEDING ORDERED, NO RESIDUALS. BILATERAL WRIST RESTRAINTS IN PLACE, CIRCULATION IS WNL. PENALOZA CATHETER DRAINING YELLOW OUTPUT. SAFETY MEASURES IMPLEMENTED, WILL ENDORSE TO NIGHTSHIFT RN FOR CONTINUATION OF CARE.
--- NOTE | 2022-11-19 19:26 | NUR ---
PATIENT ASLEEP. OPENS EYES. NOW WITH NEW TRACH TUBE, TOLERATING VENT SETTINGS WELL. SINUS RYTHYM ON THE MONITOR AT THIS TIME. IV ACCESS ON LEFT UPPER ARM PICC LINE. INFUSING NORMAL SALINE TKO. NEW NGT ON LEFT NARE AT 65 CM. NGT TUBE IN PLACE INFUSING FEEDING ORDERED, NO RESIDUALS. BILATERAL WRIST RESTRAINTS IN PLACE, CIRCULATION IS WNL. PENALOZA CATHETER DRAINING YELLOW OUTPUT. SAFETY MEASURES IN PLACE. WILL CONTINUE PLAN OF CARE.
[2022-11-19] MEDS: INSULIN REGULAR, HUMAN 100 UNIT/ML 3 ML VIAL SQ PRN (23:25)
[2022-11-20] VITALS (12 sets, daily range): BP systolic 90–114; BP diastolic 43–72
[2022-11-20] MEDS: INSULIN REGULAR, HUMAN 100 UNIT/ML 3 ML VIAL SQ PRN ×3 (05:34→23:24)
[2022-11-20] MEDS: BLOOD SUGAR DIAGNOSTIC 1 EACH STRIP IN SCH ×4 (05:34→23:23)
--- NOTE | 2022-11-20 07:29 | NUR ---
PT ASLEEP. OPENS EYES. NOW WITH NEW TRACH TUBE, TOLERATING VENT SETTINGS WELL. SINUS RYTHYM ON THE MONITOR AT THIS TIME. IV ACCESS ON LEFT UPPER ARM PICC LINE. INFUSING NORMAL SALINE TKO. NGT ON LEFT NARE AT 65 CM. NGT TUBE IN PLACE INFUSING FEEDING ORDERED, NO RESIDUALS. BILATERAL WRIST RESTRAINTS IN PLACE, CIRCULATION IS WNL. PENALOZA CATHETER DRAINING YELLOW OUTPUT. NEEDS ATTENDED. DUE MEDS GIVEN. SAFETY MEASURES MAINTAINED. WILL ENDORSE TO NEXT NURSE ON DUTY FOR CONTINUITY OF CARE.
[2022-11-20] MEDS: LEVETIRACETAM SOL (5 ML) 100 MG/ML UDC NG SCH ×2 (09:45→20:34)
[2022-11-20] MEDS: THIAMINE HCL 100 MG TABLET GT SCH (09:45)
[2022-11-20] MEDS: PANTOPRAZOLE 40 MG/PACK PACK NG SCH (09:46)
[2022-11-20] MEDS: ENOXAPARIN SODIUM 40 MG/0.4 ML DISP.SYRIN SQ SCH (09:48)
--- NOTE | 2022-11-20 10:15 | NUR ---
RN OPENING NOTE RECEIVE PATIENT FROM ICU NONVERBAL CLOSED EYES ON MECHANICAL VENT SETTING PRESCRIBED,S/P NEW TRACH ON 11/19/22 ON NGT JEVITY 1.2 70CC/HR,PENALOZA CATH IN PLACE URINE DRAINING YELLOW BY GRAVITY,IV ACCESS ON MAURILIO PICC LINE INTACT PATENT,BILATERAL SOFT WRIST RESTRAIN IN PLACE WILL CHECK EVERY 15 MINS FOR CIRCULATION AND SKIN BREAKDOWN,KEEP HEAD OF THE BED ELEVATED,CONTINUE TO MONITOR.
[2022-11-20] MEDS: MEROPENEM 500 MG in IV NS 0.9% 50 ML IV SCH ×3 (12:08)
--- NOTE | 2022-11-20 18:23 | NUR ---
RN NOTE PATIENT REMAINS OBTUNDED,EYE CLOSED,ON MECHANICAL VENT SETTING PRESCRIBED,ON NGT FEEDING JEVITY 1.2 70CC/HR.PENALOZA CATH IN PLACE,URINE DRAINING YELLOW CLEAR BY GRAVITY,BILATERAL SOFT WRIST RESTRAINS IN PLACE CHECKED EVERY 15 MINS FOR SKIN BREAKDOWN AND CIRCULATION,KEPT HEAD OF THE BED ELEVATED ALL THE TIME,TURNED AND REPOSITIONED EVERY 2 HOURS,ENDORSE NEXT COMING SHIFT FOR CONTINUATION OF CARE.
--- NOTE | 2022-11-20 19:58 | NUR ---
RN OPENING NOTES RECEIVED PT ON BED, OBTUNDED. ON TRACH TO MECHANICAL VENT SETTING: S#6, AC-12, TV- 400, FIO2-40% PEEP OFF. ON S/P NEW TRACH PLACED ON 11/19/22. SECRETIONS NOTED MODERATE AMOUNT OF DARK RED COLOR. IV ACCESS ON MAURILIO PICC INTACT AND PATENT. ON NGT FEEDING. RUNNING JEVITY 1.2AT 70CC/HR. NO FACIAL GRIMACING NOTED. NO ACUTE DISTRESS. PENALOZA CATH IN PLACE. DRAINING BY GRAVITY. BILATERAL SOFT WRIST RESTRAINT IN PLACE. ALL SAFETY MEASURES IN PLACE. KEEP HEAD OF THE BED ELEVATED. SIDE RAILS UP X3, BED IN LOWEST POSITION AND LOCKED. PLACE CALL LIGHT WITH IN REACH. WILL CONTINUE TO MONITOR.
[2022-11-20] MEDS: JEVITY 1.2 CAL 1,000 ML BOTTLE NG PRN (20:25)
[2022-11-20] MEDS: ACETAMINOPHEN 650 MG/20.3 ML UDC NG PRN (20:44)
--- NOTE | 2022-11-20 20:50 | NUR ---
RN NOTES: PT'S TEMP INCREASED TO 100.7. TYLENOL 650 MG/20.3 ML GIVEN AND PT TOLERATED WELL. WILL CONTINUE TO MONITOR
--- NOTE | 2022-11-20 23:24 | NUR ---
RN NOTES: PT'S BLOOD SUAGR 127. NO COVERAGE NEEDED. NO S/S OF HYPER/HYPOGLYCEMIA. WILL CONTINUE TO MONITOR
[2022-11-21] VITALS: BP 93/45
[2022-11-21 04:00] VITALS: BP 104/45
[2022-11-21] MEDS: INSULIN REGULAR, HUMAN 100 UNIT/ML 3 ML VIAL SQ PRN (05:06)
[2022-11-21] MEDS: BLOOD SUGAR DIAGNOSTIC 1 EACH STRIP IN SCH ×3 (05:06→17:25)
--- NOTE | 2022-11-21 06:40 | NUR ---
RN CLOSING NOTES PT ON BED, OBTUNDED. ON TRACH TO MECHANICAL VENT SETTING: S#6, AC-12, TV- 400, FIO2-40% PEEP OFF. IV ACCESS ON MAURILIO PICC INTACT AND PATENT. ON NGT FEEDING. RUNNING JEVITY 1.2AT 70CC/HR. NO FACIAL GRIMACING NOTED. NO ACUTE DISTRESS. PENALOZA CATH IN PLACE. DRAINING BY GRAVITY. BILATERAL SOFT WRIST RESTRAINT IN PLACE. RELEASED Q 2HOURS TO CHECK CIRCULATIONS. ALL DUE MEDS GIVEN ORDERED, ALL SAFETY MEASURES IN PLACE. KEEP HEAD OF THE BED ELEVATED. SIDE RAILS UP X3, BED IN LOWEST POSITION AND LOCKED. PLACE CALL LIGHT WITH IN REACH. WILL ENDORSE TO MORNING SHIFT NURSE.
[2022-11-21 06:48] LABS: BASOPHILS % (AUTO) 0.1 % (0.0-2.0); EOSINOPHILS % (AUTO) 0.8 % (0.0-6.0); HEMATOCRIT 29 % (39-51); HEMOGLOBIN 9.6 g/dL (13.5-17.5); LYMPHOCYTES # (AUTO) 0.9 K/uL (0.8-4.8); LYMPHOCYTES % (AUTO) 7.8 % (20.0-44.0); MEAN CORPUSCULAR HGB CONC 34 g/dl (31.0-36.0); MEAN CORPUSCULAR VOLUME 90 fL (80-96); MONOCYTES # (AUTO) 0.7 K/uL (0.1-1.30); NEUTROPHILS # (AUTO) 9.3 K/uL (1.8-8.9); NEUTROPHILS % (AUTO) 85.3 % (43.0-81.0); PLATELET COUNT (AUTO) 206 K/uL (150-450); RED BLOOD CELL COUNT(AUTO) 3.19 MIL/uL (4.5-6.0); WHITE BLOOD COUNT (AUTO) 10.9 K/uL (4.3-11.0)
[2022-11-21 07:12] LABS: CALCIUM, SERUM 8.3 mg/dL (8.5-10.1); CARBON DIOXIDE 30 mmol/L (21-32); CHLORIDE 103 mmol/L (98-107); CREATININE 0.7 mg/dL (0.6-1.3); GLUCOSE 121 mg/dL (74-106); MAGNESIUM 2.4 mg/dL (1.8-2.4); PHOSPHORUS 4.1 mg/dL (2.5-4.9); POTASSIUM 4.9 mmol/L (3.5-5.1); SODIUM SERUM 137 mmol/L (136-145); UREA NITROGEN, BLOOD 42 mg/dL (7-18)
--- NOTE | 2022-11-21 07:15 | NUR ---
RN OPENING NOTES RECEIVED PATIENT IN BED, OBTUNDED, OPEN BOTH EYES, ON VENT, SETTING PRESCRIBED, O2 SAT AT 97%. BEDRIDDEN, IV ACCESS ON RIGHT UPPER ARM, PICC LINE INTACT AND FLUSHING WELL. PATIENT ON G-TUBE FEEDING, PLACEMENT CHECKED, NO RESIDUAL NOTED, ON JEVITYT 1.2 AT 70 CC/HR. PENALOZA CATHETER IN PLACE, URINE YELLOW AND CLEAR AND DRAINING BY GRAVITY. BILATERAL WRIST RESTRAIN IN PLACE, WILL BE CHECKED EVERY 15 MINUTES FOR SKIN BREAKDOWN AND CIRCULATION. SAFETY MEASURES IMPLEMENTED, HEAD OF BED ELEVATES, BED IN LOWEST AND LOCKED POSITION. WILL CONTINUE TO MONITOR.
[2022-11-21] MEDS: PANTOPRAZOLE 40 MG/PACK PACK NG SCH (07:39)
[2022-11-21] MEDS: LEVETIRACETAM SOL (5 ML) 100 MG/ML UDC NG SCH ×2 (07:39→20:51)
[2022-11-21 08:00] VITALS: BP 141/67
[2022-11-21] MEDS: ENOXAPARIN SODIUM 40 MG/0.4 ML DISP.SYRIN SQ SCH (08:29)
[2022-11-21] MEDS: THIAMINE HCL 100 MG TABLET GT SCH (08:33)
--- NOTE | 2022-11-21 09:00 | NUR ---
RN NOTE HOLD LOVENOX PER DOCTOR MALICK FORREST. WHEN PATIENT WAS BEING SUCTIONED, BLOOD NOTED ON DRAINAGE.
[2022-11-21 12:00] VITALS: BP 119/53
[2022-11-21] MEDS: JEVITY 1.2 CAL 1,000 ML BOTTLE NG PRN (13:52)
[2022-11-21 16:00] VITALS: BP 110/44
--- NOTE | 2022-11-21 18:39 | NUR ---
RN CLOSING NOTES PATIENT REMAINS OBTUNDED, BOTH EYES CLOSED ON MECHANICAL VENT SETTINGS PRESCRIBED, ON NG-TUBE NO SOB, ACUTE DISTRESS NOTED. KEPT CLEAN AND DRY, TURNED AND REPOSITION ORDERED. SOFT BILATERAL RESTRAINS IN PLACED, CHECKED FOR CIRCULATION AND SKIN BREAKDOWN. ALL DUE MEDICATIONS GIVEN PER MD ORDER. HEAD OF BED ELEVATED, PENALOZA CATHETER IN PLACE, URINE YELLOW AND CLEAR. BED IN LOWEST AND LOCKED POSITION, SIDE RAILS UP X3. WILL RE-ENDORSE TO INCOMING SHIFT FOR CONTINUING OF CARE.
--- NOTE | 2022-11-21 19:15 | NUR ---
RN NOTE RECEIVED PT IN BED, OBTUNDED, RESPONDS TO PAIN STIMULI ONLY. PT ON MECH VENT, CURRENT SETTINGS WELL FLYNN. NO ACUTE RESP DISTRESS NOTED. MAURILIO PICC ON SL, CLEAN, DRY, PATENT. PT AFEBRILE. L NARE NGT IN PLACED, PATENT, CURRENTLY RUNNING JEVITY 1.2 AT 70ML/HR, WELL FLYNN. 0 RESIDUAL NOTED. HOB ELEVATED. ASPIRATION PRECAUTION OBSERVED. PENALOZA CATH IN PLACED, PATENT, SECURED, DRAINING DARK YELLOW URINE BY GRAVITY. SAFETY PRECAUTION IMPLEMENTED. WILL CONT POC.
[2022-11-21 20:00] VITALS: BP 110/44
--- NOTE | 2022-11-21 20:07 | NUR ---
RCVD PT TRACHED BROOKS 8 ON [facility] VENT SETTINGS OF AC 12,VT 400, FIO2 40%. SUCTIONED MODERATE AMOUNT OF PINK TINGED THICK SECRETIONS. VENT PLUGGED INTO RED OUTLET, VENT ALARMS ON AND AUDIBLE. NO RESPIRATORY DISTRESS NOTED AT THIS TIME. WILL CONTINUE TO MONITOR T/O SHIFT. Addendum: 11/23/22 at 0359 by MONIQUE UMAÑA RT FOUND PT TRACHED BROOKS 6
[2022-11-22] VITALS: BP 106/58
[2022-11-22] MEDS: ACETAMINOPHEN 650 MG/20.3 ML UDC NG PRN (00:59)
[2022-11-22] MEDS: BLOOD SUGAR DIAGNOSTIC 1 EACH STRIP IN SCH ×4 (01:05→17:15)
[2022-11-22] MEDS: INSULIN REGULAR, HUMAN 100 UNIT/ML 3 ML VIAL SQ PRN ×2 (01:07→06:15)
[2022-11-22 04:00] VITALS: BP 105/52
[2022-11-22 06:21] LABS: EOSINOPHILS % (AUTO) 0.3 % (0.0-6.0); HEMATOCRIT 25 % (39-51); HEMOGLOBIN 8.1 g/dL (13.5-17.5); LYMPHOCYTES # (AUTO) 0.8 K/uL (0.8-4.8); MEAN CORPUSCULAR HGB CONC 32 g/dl (31.0-36.0); MEAN CORPUSCULAR VOLUME 91 fL (80-96); MONOCYTES # (AUTO) 0.7 K/uL (0.1-1.30); MONOCYTES % (AUTO) 5.6 % (2.0-12.0); NEUTROPHILS # (AUTO) 11.3 K/uL (1.8-8.9); NEUTROPHILS % (AUTO) 88.1 % (43.0-81.0); PLATELET COUNT (AUTO) 231 K/uL (150-450); RED BLOOD CELL COUNT(AUTO) 2.74 MIL/uL (4.5-6.0); WHITE BLOOD COUNT (AUTO) 12.9 K/uL (4.3-11.0)
[2022-11-22 06:30] LABS: CALCIUM, SERUM 7.8 mg/dL (8.5-10.1); CARBON DIOXIDE 30 mmol/L (21-32); CHLORIDE 101 mmol/L (98-107); CREATININE 0.9 mg/dL (0.6-1.3); GLUCOSE 116 mg/dL (74-106); MAGNESIUM 2.4 mg/dL (1.8-2.4); PHOSPHORUS 3.7 mg/dL (2.5-4.9); POTASSIUM 5.1 mmol/L (3.5-5.1); SODIUM SERUM 135 mmol/L (136-145); UREA NITROGEN, BLOOD 44 mg/dL (7-18)
--- NOTE | 2022-11-22 06:55 | NUR ---
RN NOTE PT REMAINS IN STABLE CONDITION, NO SIGNIFICANT CHANGES NOTED. REMAINS ON MECH VENT SETTINGS, WELL TOLERATED. AFEBRILE. ALL DUE MEDICATIONS GIVEN ORDERED, NGT FEEDING RUNNING ORDERED. TURN/REPOS Q2H/PRN. HOB ELEVATED AT ALL TIMES. KEPT PT CLEAN, DRY, AND COMFORTABLE. WILL ENDORSE TO AM SHIFT FOR NITIN.
--- NOTE | 2022-11-22 07:56 | NUR ---
INSPECTOR MACHINE CUT GLASS OPENING NOTE RECEIVED PT IN BED, OBTUNDED. ON MECHANICAL VENT WITH ORDERED SETTINGS TOLERATING WELL.PT ON TELE MONTIOR NO COMPLAINTS OF PAIN OR DISCOMFORT NOTED AT THIS TIME. PT HAS R UPPAR ARM PICC. IV INTACT, PATENT PT HAS LEFT NARE NG TUBE IN PLACE. ON JEVITY 1.2. NO RESIDUAL VOLUME NOTED AT THIS TIME. HOB ELEVATED AT ALL TIMES. ASPIRATION PRECAUTION OBSERVED. PENALOZA CATHETHER IN PLACE.ALL SAFETY MEASURES IN PLACE. CALL LIGHT WITHIN REACH. BED LOCKED AT LOWEST POSITION. SIDE RAILS UP X2.
[2022-11-22 08:00] VITALS: BP 118/58
[2022-11-22] MEDS: PANTOPRAZOLE 40 MG/PACK PACK NG SCH (08:44)
[2022-11-22] MEDS: LEVETIRACETAM SOL (5 ML) 100 MG/ML UDC NG SCH ×2 (08:44→20:37)
[2022-11-22] MEDS: THIAMINE HCL 100 MG TABLET GT SCH (08:44)
[2022-11-22] MEDS: ENOXAPARIN SODIUM 40 MG/0.4 ML DISP.SYRIN SQ SCH (09:00)
[2022-11-22] MEDS: JEVITY 1.2 CAL 1,000 ML BOTTLE NG PRN (10:41)
[2022-11-22] MEDS ORDERED: LEVETIRACETAM (500MG) 1,000 MG in IV NS 0.9% 100 ML IV STA (11:12)
--- NOTE | 2022-11-22 11:29 | NUR ---
RN NOTE AWARE OF POTASSIUM 5.1. NO NEW ORDERS AT THIS TIME
[2022-11-22 12:00] VITALS: BP 107/57
[2022-11-22 16:00] VITALS: BP 121/60
[2022-11-22] MEDS ORDERED: LORAZEPAM INJ 2 MG/ML VIAL IV PRN ×3 (17:30)
[2022-11-22] MEDS ORDERED: LORAZEPAM 0.5 MG TABLET PO PRN (17:30)
--- NOTE | 2022-11-22 17:36 | NUR ---
RN NOTE ROUNDS MADE WITH . NOTICED LEFT SIDE TWITCHING. ORDERED 0.5 MG ATIVAN IV Q4H PRN FOR SEIZURE. OKAY TO ADMINSTER FIRST DOSE NOW. ORDER NOTED AND CARRIED OUT
--- NOTE | 2022-11-22 17:43 | NUR ---
RN NOTE VITAL SIGNS WITHIN NORMAL LIMITS
--- NOTE | 2022-11-22 19:18 | NUR ---
RETAIL DEPARTMENT RESET OPENING NOTE PT IN BED, OBTUNDED, NONVERBAL. ON MECHANICAL VENT WITH ORDERED SETTINGS TOLERATING WELL.PT ON TELE MONTIOR SINUS RHYTM 98.NO SIGNS OF PAIN OR DISCOMFORT NOTED AT THIS TIME. PT HAS R UPPAR ARM PICC. IV INTACT, PATENT PT HAS LEFT NARE NG TUBE IN PLACE. ON JEVITY 1.2. NO RESIDUAL VOLUME NOTED AT THIS TIME. PT NOTED TO HAVE LEFT SIDE TWITICHING.NEUROLOGIST AWARE.HOB ELEVATED AT ALL TIMES. ASPIRATION PRECAUTION OBSERVED. PENALOZA CATHETER IN PLACE.YELLOW COLOR/JESSY COLOR OUTPUT. PT ON SOFT BILATERAL SOFT WRIST RESTRAINTS. NO SKIN OR CIRCULATION ISSUES NOTED AT THIS TIME. ALL SAFETY MEASURES IN PLACE. CALL LIGHT WITHIN REACH. BED LOCKED AT LOWEST POSITION. SIDE RAILS UP X2.BED ALARM ON Addendum: 11/22/22 at 1919 by ABDIRASHID BARBA RN closing note
[2022-11-22] MEDS ORDERED: LORAZEPAM INJ 2 MG/ML VIAL IV ONE (19:30)
--- NOTE | 2022-11-22 19:30 | NUR ---
rn note pt still has twitching post Ativan. notified dr. breaux. ordered 0.5 mg iv ativan to be given now and ordered a stat eeg tomorrow morning 11/23. endorsed to shift supervisor rn for contuity of care
--- NOTE | 2022-11-22 19:31 | NUR ---
RN NOTE Report received from Rashmi WARNER, patient in bed, obtunded, in no acute distress, saturation at 100% on trach to mechanical vent with settings as prescribed: AC mode at rate of 12, FIO2 40%, TV 400, ST on the monitor, HR is 101. NG tube at L nare in place, placement verified with Rashmi RN, by aspiration and auscultation, no residual and positive placement noted. Triple lumen PICC line in place, all hubs patent and flushing well. B Soft wrist restraints in place, skin and circulation checked and are WNL. Lawson catheter draining to a clear, yellow output. Safety measures implemented, bed is locked and at lowest position. Will monitor and reassess.
[2022-11-22 20:00] VITALS: BP 105/56
--- NOTE | 2022-11-22 20:28 | NUR ---
RCVD PT TRACHED SHILEY 6 ON [facility] VENT SETTINGS OF AC 12,VT 400, FIO2 40%. SUCTIONED MODERATE AMOUNT OF PINK TINGED THICK SECRETIONS. VENT PLUGGED INTO RED OUTLET, VENT ALARMS ON AND AUDIBLE. NO RESPIRATORY DISTRESS NOTED AT THIS TIME. WILL CONTINUE TO MONITOR T/O SHIFT.
[2022-11-23] VITALS: BP 115/62
[2022-11-23] MEDS: BLOOD SUGAR DIAGNOSTIC 1 EACH STRIP IN SCH ×4 (01:22→17:35)
[2022-11-23] MEDS: INSULIN REGULAR, HUMAN 100 UNIT/ML 3 ML VIAL SQ PRN ×3 (01:24→17:36)
[2022-11-23 04:00] VITALS: BP 123/71
[2022-11-23] MEDS: DEXTROSE 50%-WATER 50 ML DISP.SYRIN IV PRN (06:20)
[2022-11-23] MEDS: JEVITY 1.2 CAL 1,000 ML BOTTLE NG PRN (06:27)
[2022-11-23 06:57] LABS: BASOPHILS % (AUTO) 0.1 % (0.0-2.0); EOSINOPHILS % (AUTO) 0.3 % (0.0-6.0); HEMATOCRIT 22 % (39-51); HEMOGLOBIN 7.2 g/dL (13.5-17.5); LYMPHOCYTES # (AUTO) 1.1 K/uL (0.8-4.8); LYMPHOCYTES % (AUTO) 6.3 % (20.0-44.0); MEAN CORPUSCULAR HGB CONC 33 g/dl (31.0-36.0); MEAN CORPUSCULAR VOLUME 90 fL (80-96); MONOCYTES # (AUTO) 1.1 K/uL (0.1-1.30); MONOCYTES % (AUTO) 6.3 % (2.0-12.0); NEUTROPHILS # (AUTO) 15.5 K/uL (1.8-8.9); PLATELET COUNT (AUTO) 300 K/uL (150-450); RED BLOOD CELL COUNT(AUTO) 2.44 MIL/uL (4.5-6.0); WHITE BLOOD COUNT (AUTO) 17.8 K/uL (4.3-11.0)
--- NOTE | 2022-11-23 07:00 | NUR ---
RN NOTE RECEIVED PATIENT IN BED, OBTUNDED, ON VENT, SETTING PRESCRIBED, O2 SAT AT 100%. BEDRIDDEN, IV ACCESS ON RIGHT UPPER ARM, PICC LINE TRIPLE LUMEN, INTACT AND FLUSHING WELL. PATIENT ON G-TUBE FEEDING, PLACEMENT CHECKED, ON JEVITYT 1.2 AT 70 CC/HR. NO VOMITING. PENALOZA CATHETER IN PLACE, URINE YELLOW AND CLEAR AND DRAINING BY GRAVITY. BILATERAL WRIST RESTRAIN IN PLACE, WILL BE CHECKED EVERY 15 MINUTES FOR SKIN BREAKDOWN AND CIRCULATION. SAFETY MEASURES IMPLEMENTED, HEAD OF BED ELEVATES, BED IN LOWEST AND LOCKED POSITION. WILL CONTINUE TO MONITOR.
[2022-11-23 07:26] LABS: ALANINE AMINOTRANSFERASE 45 U/L (12-78); ALBUMIN 1.8 g/dL (3.4-5.0); ALKALINE PHOSPHATASE 87 U/L (46-116); ASPARTATE AMINOTRANSFERASE 31 U/L (15-37); BILIRUBIN,DIRECT 0.2 mg/dL (0.0-0.2); BILIRUBIN,TOTAL 0.5 mg/dL (0.2-1.0); CALCIUM, SERUM 7.7 mg/dL (8.5-10.1); CARBON DIOXIDE 29 mmol/L (21-32); CHLORIDE 106 mmol/L (98-107); CREATININE 1.1 mg/dL (0.6-1.3); GLUCOSE 103 mg/dL (74-106); MAGNESIUM 2.5 mg/dL (1.8-2.4); PHOSPHORUS 3.8 mg/dL (2.5-4.9); POTASSIUM 5.2 mmol/L (3.5-5.1); SODIUM SERUM 140 mmol/L (136-145); TOTAL PROTEIN, SERUM 5.5 g/dL (6.4-8.2); UREA NITROGEN, BLOOD 49 mg/dL (7-18)
[2022-11-23 08:00] VITALS: BP 92/46
[2022-11-23] MEDS: PANTOPRAZOLE 40 MG/PACK PACK NG SCH (08:31)
[2022-11-23] MEDS: LEVETIRACETAM SOL (5 ML) 100 MG/ML UDC NG SCH ×2 (08:32→20:31)
[2022-11-23] MEDS: THIAMINE HCL 100 MG TABLET GT SCH (09:10)
[2022-11-23] MEDS: ENOXAPARIN SODIUM 40 MG/0.4 ML DISP.SYRIN SQ SCH (09:10)
--- NOTE | 2022-11-23 09:15 | NUR ---
RN NOTE WHILE MORNING MED WERE GIVEN, RESIDUAL ON NGTUBE NOTED AT 125CC. FEEDING HELD, ABDOMEN SOFT AND NON DISTENDED, NO NAUSEA OR VOMITING NOTED. DOCTOR SYBIL AWARE WITH NO NEW ORDERS. WILL CONTINUE TO MONITOR.
--- NOTE | 2022-11-23 10:45 | NUR ---
RN NOTE N-GTUBE FEEDING RESIDUAL AT 70CC. RESUME FEEDING.
[2022-11-23 12:00] VITALS: BP 91/45
--- NOTE | 2022-11-23 13:45 | NUR ---
RN NOTES: EEG DONE IN BED IN THE PT ROOM
[2022-11-23] MEDS: MEROPENEM 500 MG in IV NS 0.9% 50 ML IV SCH ×2 (14:28→20:32)
[2022-11-23 16:00] VITALS: BP 91/45
[2022-11-23] MEDS ORDERED: SODIUM POLYSTYRENE SULFONATE 15 G/60 ML BOTTLE PO ONE (17:30)
--- NOTE | 2022-11-23 19:08 | NUR ---
CRANE RIGGER CLOSING NOTES: RN NOTE PT REMAINS IN STABLE CONDITION, NO SIGNIFICANT CHANGES NOTED. REMAINS ON MECH VENT SETTINGS PRESCRIBED , WELL TOLERATED. AFEBRILE. ALL DUE MEDICATIONS GIVEN ORDERED, NGT FEEDING RUNNING ORDERED. TURN/REPOS Q2H/PRN. HOB ELEVATED AT ALL TIMES. KEPT PT CLEAN, DRY, AND COMFORTABLE. WILL ENDORSE TONIGHT SHIFT FOR NITIN.
--- NOTE | 2022-11-23 19:30 | NUR ---
RN NOTE Report received from Aydee WARNER, patient in bed, AO x1, arousable, in no acute distress, saturation at 99% on trach to mechanical vent with settings as prescribed: AC mode at rate of 12, FIO2 40%, TV 400, SR on the monitor, HR is 98. NG tube at L nare in place, placement verified by aspiration and auscultation, positive placement noted, no residual, with tube feeding of Jevity at 70 ml/hr. Triple lumen PICC line in place, all hubs patent and flushing well. B Soft wrist restraints in place, skin and circulation checked and are WNL. Mistry catheter draining to a clear, yellow output. Safety measures implemented, bed is locked and at lowest position. Will monitor and reassess.
[2022-11-23 20:00] VITALS: BP 106/58
[2022-11-23] MEDS: ACETAMINOPHEN 650 MG/20.3 ML UDC NG PRN (20:50)
[2022-11-24] VITALS: BP 94/46
[2022-11-24] MEDS: INSULIN REGULAR, HUMAN 100 UNIT/ML 3 ML VIAL SQ PRN ×4 (00:01→23:39)
[2022-11-24] MEDS: JEVITY 1.2 CAL 1,000 ML BOTTLE NG PRN ×2 (00:03→18:20)
[2022-11-24 04:00] VITALS: BP 110/59
[2022-11-24] MEDS: BLOOD SUGAR DIAGNOSTIC 1 EACH STRIP IN SCH ×5 (05:31→23:37)
[2022-11-24] MEDS: MEROPENEM 500 MG in IV NS 0.9% 50 ML IV SCH ×3 (05:31→21:04)
--- NOTE | 2022-11-24 07:00 | NUR ---
COMMUNITY LEADER OPENING NOTES: RECEIVED PT IN BED, OBTUNDED. ON MECHANICAL VENT WITH CURRENT SETTING OF SHILEY #6 AC 12 TV 400 FI02 40. NOTED WITH BLOODY SECRETIONS FROM TRACH PER ORE TESTERPROCESS ANALYST DR IS AWARE. PT IS LETHARGIC. ON TELE MONITOR WITH CURRENT REQADING OF SINUS TACHY @100 BPM. ON PENALOZA CATHETER INTACT DRAINING JESSY COLORED URINE BY GRAVITY. NG TUBE ON LEFT NARE RUNNING JEVITY 1.2 @70ML/HR. NOTED WITH MAURILIO MIDLINE PATENT,INTACT AND SALINE LOCKED. SAFETY MEASURES MAINTAINED: BED LOCKED AND IN LOWEST POSITION, SIDERAILS UP X 3. WILL MONITOR PT ACCORDINGLY.
[2022-11-24 07:07] LABS: BASOPHILS % (AUTO) 0.2 % (0.0-2.0); EOSINOPHILS % (AUTO) 0.4 % (0.0-6.0); HEMATOCRIT 23 % (39-51); HEMOGLOBIN 7.5 g/dL (13.5-17.5); LYMPHOCYTES # (AUTO) 0.9 K/uL (0.8-4.8); LYMPHOCYTES % (AUTO) 7.3 % (20.0-44.0); MEAN CORPUSCULAR HGB CONC 33 g/dl (31.0-36.0); MEAN CORPUSCULAR VOLUME 89 fL (80-96); MONOCYTES # (AUTO) 0.9 K/uL (0.1-1.30); MONOCYTES % (AUTO) 7.3 % (2.0-12.0); NEUTROPHILS # (AUTO) 10.8 K/uL (1.8-8.9); NEUTROPHILS % (AUTO) 84.8 % (43.0-81.0); PLATELET COUNT (AUTO) 284 K/uL (150-450); RED BLOOD CELL COUNT(AUTO) 2.55 MIL/uL (4.5-6.0); WHITE BLOOD COUNT (AUTO) 12.8 K/uL (4.3-11.0)
[2022-11-24 07:09] LABS: CALCIUM, SERUM 7.6 mg/dL (8.5-10.1); CARBON DIOXIDE 29 mmol/L (21-32); CHLORIDE 104 mmol/L (98-107); GLUCOSE 113 mg/dL (74-106); MAGNESIUM 2.6 mg/dL (1.8-2.4); PHOSPHORUS 3.5 mg/dL (2.5-4.9); POTASSIUM 4.1 mmol/L (3.5-5.1); SODIUM SERUM 138 mmol/L (136-145); UREA NITROGEN, BLOOD 49 mg/dL (7-18)
[2022-11-24] MEDS: PANTOPRAZOLE 40 MG/PACK PACK NG SCH (07:47)
[2022-11-24] MEDS: LEVETIRACETAM SOL (5 ML) 100 MG/ML UDC NG SCH ×2 (07:47→19:43)
[2022-11-24 08:00] VITALS: BP 139/72
[2022-11-24] MEDS: THIAMINE HCL 100 MG TABLET GT SCH (08:52)
[2022-11-24] MEDS: ENOXAPARIN SODIUM 30 MG/0.3 ML DISP.SYRIN SQ SCH (09:00)
--- NOTE | 2022-11-24 09:00 | NUR ---
RN NOTES: INFORMED DR RILEY FOR DUE ENOXAPARIN 0900AM, INFORMED MD THAT HGB 7.5 WITH TINGED OF BLOOD IN TRACH SITE. DR RILEY ORDERED HOLD ENOXAPARIN. ORDERS NOTED AND CARRIED OUT.
[2022-11-24 12:00] VITALS: BP 118/53
[2022-11-24 16:00] VITALS: BP 130/61
--- NOTE | 2022-11-24 18:47 | NUR ---
LOGISTICS COORDINATOR CLOSING NOTES: PT IN BED NON VERBAL, ASLEEP EASILY AROUSED WITH STIMULI. NO SOB OR CARDIAC DISTRESS NOTED. ON MECHANICAL VENT WITH CURRENT SETTING OF SHILEY #6 AC 12 TV 400 FI02 40. PT IS LETHARGIC. ON TELE MONITOR WITH CURRENT REQADING OF SINUS RHYTHM @88 BPM. NGT TUBE INTACT RUNNING JEVITY 1.2 @70ML/HR. IV ACCESS ON MAURILIO PICC LINE PATENT, INTACT AND SALINE LOCKED. NOTED WITH BILATERAL SOFT RESTRAINT, HANDS WITH GOOD CAPILLARY REFILL. PT HAD EPISODES OF INVOLUNTARY MOVT OF HANDS. PENALOZA CATHETER IN PLACE DRAINING CLEAR JESSY COLORED URINE BY GRAVITY.SAFETY MEASURES MAINRTAINED: BED LOCKED AND IN LOWEST POSITION. SIDE RAILS UP X 2. CALL LIGHT IN EASY REACH FOR HELP. ENDORSED TO HVAC OPERATIONS TECHNICIAN RN FOR CONTINUITY OF CARE.
--- NOTE | 2022-11-24 19:10 | NUR ---
ACCOUNTING GENERALIST CLOSING NOTE RECEIVED PATIENT IN BED, OBTUNDED, ON VENT, SETTING PRESCRIBED, TRACH INTACT AT MIDLINE, IV ACCESS ON MAURILIO, PICC LINE TRIPLE LUMEN, C/D/I. PATIENT ON G-TUBE FEEDING, PLACEMENT CHECKED, ON JEVITYT 1.2 AT 70 CC/HR. TOLERATING WELL. PENALOZA CATHETER IN PLACE, URINE YELLOW AND CLEAR AND DRAINING WELL. BILATERAL WRIST RESTRAIN IN PLACE, WILL BE CHECKED EVERY 15 MINUTES FOR SKIN BREAKDOWN AND CIRCULATION. SAFETY MEASURES IMPLEMENTED, HEAD OF BED ELEVATED, BED IN LOWEST AND LOCKED POSITION. WILL CONTINUE TO MONITOR. Addendum: 11/25/22 at 0641 by BHAVNA VILLAGOMEZ LVN OPENING NOTE
[2022-11-24 20:00] VITALS: BP 95/46
[2022-11-24] MEDS: ACETAMINOPHEN 650 MG/20.3 ML UDC NG PRN (20:24)
[2022-11-25] VITALS: BP_SYST 90; BP_SYST 97; BP_DIAS 42; BP_DIAS 43
[2022-11-25 04:00] VITALS: BP 122/77
[2022-11-25] MEDS: BLOOD SUGAR DIAGNOSTIC 1 EACH STRIP IN SCH ×3 (05:30→17:03)
[2022-11-25] MEDS: MEROPENEM 500 MG in IV NS 0.9% 50 ML IV SCH ×3 (05:30→20:36)
[2022-11-25 05:46] LABS: BASOPHILS % (AUTO) 0.4 % (0.0-2.0); HEMATOCRIT 24 % (39-51); HEMOGLOBIN 7.5 g/dL (13.5-17.5); LYMPHOCYTES # (AUTO) 0.7 K/uL (0.8-4.8); LYMPHOCYTES % (AUTO) 7.7 % (20.0-44.0); MEAN CORPUSCULAR HGB CONC 32 g/dl (31.0-36.0); MEAN CORPUSCULAR VOLUME 95 fL (80-96); MONOCYTES # (AUTO) 0.8 K/uL (0.1-1.30); MONOCYTES % (AUTO) 8.2 % (2.0-12.0); NEUTROPHILS # (AUTO) 7.6 K/uL (1.8-8.9); NEUTROPHILS % (AUTO) 82.7 % (43.0-81.0); PLATELET COUNT (AUTO) 300 K/uL (150-450); RED BLOOD CELL COUNT(AUTO) 2.51 MIL/uL (4.5-6.0); WHITE BLOOD COUNT (AUTO) 9.2 K/uL (4.3-11.0)
[2022-11-25 06:10] LABS: CALCIUM, SERUM 7.7 mg/dL (8.5-10.1); CREATININE 0.8 mg/dL (0.6-1.3); MAGNESIUM 2.6 mg/dL (1.8-2.4); PHOSPHORUS 3.5 mg/dL (2.5-4.9); POTASSIUM 4.4 mmol/L (3.5-5.1)
--- NOTE | 2022-11-25 06:40 | NUR ---
MAP MAKER CLOSING NOTE PT REMAINS IN STABLE CONDITION, NO SIGNIFICANT CHANGES NOTED. REMAINS ON MECH VENT SETTINGS PRESCRIBED , WELL TOLERATED. AFEBRILE. ALL DUE MEDICATIONS GIVEN ORDERED, NGT FEEDING RUNNING ORDERED. TURN/REPOS Q2H/PRN. HOB ELEVATED AT ALL TIMES. KEPT PT CLEAN, DRY, AND COMFORTABLE. WILL ENDORSE TONIGHT SHIFT FOR NITIN.
--- NOTE | 2022-11-25 07:00 | NUR ---
RN OPENING NOTE RECEIVED REPORT FROM NIGHTSLAFT NURSE. PATIENT IN STABLE CONDITION. REMAINS ON MECH VENT SETTINGS PRESCRIBED , WELL TOLERATED. AFEBRILE. NGT FEEDING RUNNING ORDERED, MARKED AT 70 CM LINE. HOB ELEVATED GREATER THAN 30 DEGREES. MAURILIO PICC LINE IN PLACE.TKO FLUIDS RUNNING ORDERED. BILATERAL WRIST RESTRAINTS NOTED, CIRCULATION IS WNL. SAFETY MEASURES IMPLEMENTED. WILL CONTINUE PLAN OF CARE AND ANTICIPATE NEEDS.
[2022-11-25] MEDS: PANTOPRAZOLE 40 MG/PACK PACK NG SCH (07:35)
[2022-11-25] MEDS: LEVETIRACETAM SOL (5 ML) 100 MG/ML UDC NG SCH ×2 (07:35→20:34)
[2022-11-25 08:00] VITALS: BP 110/51
[2022-11-25] MEDS: ENOXAPARIN SODIUM 30 MG/0.3 ML DISP.SYRIN SQ SCH (08:26)
--- NOTE | 2022-11-25 08:27 | NUR ---
enoxaprin held due to low h/h
[2022-11-25] MEDS: THIAMINE HCL 100 MG TABLET GT SCH (08:31)
[2022-11-25 12:00] VITALS: BP 110/54
[2022-11-25] MEDS: IV NS 0.9% 250 ML IV PRN (12:05)
[2022-11-25] MEDS: JEVITY 1.2 CAL 1,000 ML BOTTLE NG PRN (15:18)
[2022-11-25 16:00] VITALS: BP 112/60
[2022-11-25] MEDS: INSULIN REGULAR, HUMAN 100 UNIT/ML 3 ML VIAL SQ PRN (17:04)
--- NOTE | 2022-11-25 18:50 | NUR ---
RN CLOSING NOTE PATIENT IN STABLE CONDITION. REMAINS ON MECH VENT SETTINGS PRESCRIBED , WELL TOLERATED. AFEBRILE. NGT FEEDING RUNNING ORDERED, MARKED AT 70 CM LINE. HOB ELEVATED GREATER THAN 30 DEGREES. MAURILIO PICC LINE IN PLACE. TKO FLUIDS RUNNING ORDERED. BILATERAL WRIST RESTRAINTS NOTED, CIRCULATION IS WNL. SAFETY MEASURES IMPLEMENTED. WILL ENDORSE TO NIGHTSHIFT NURSE FOR CONTINUATION OF CARE.
--- NOTE | 2022-11-25 19:10 | NUR ---
BAGGER MEAT CLOSING NOTE RECEIVED PATIENT IN BED, OBTUNDED, ON VENT, SETTING PRESCRIBED, TRACH INTACT AT MIDLINE, IV ACCESS ON MAURILIO, PICC LINE TRIPLE LUMEN, C/D/I. PATIENT ON G-TUBE FEEDING, PLACEMENT CHECKED, ON JEVITYT 1.2 AT 70 CC/HR. TOLERATING WELL. PENALOZA CATHETER IN PLACE, URINE YELLOW AND CLEAR AND DRAINING WELL. BILATERAL WRIST RESTRAIN IN PLACE, WILL BE CHECKED EVERY 15 MINUTES FOR SKIN BREAKDOWN AND CIRCULATION. SAFETY MEASURES IMPLEMENTED, HEAD OF BED ELEVATED, BED IN LOWEST AND LOCKED POSITION. WILL CONTINUE TO MONITOR.
[2022-11-25 20:00] VITALS: BP 103/48
[2022-11-25] MEDS: ACETAMINOPHEN 650 MG/20.3 ML UDC NG PRN (20:57)
[2022-11-26] VITALS: BP 117/59
[2022-11-26] MEDS: INSULIN REGULAR, HUMAN 100 UNIT/ML 3 ML VIAL SQ PRN ×3 (00:52→23:27)
[2022-11-26] MEDS: BLOOD SUGAR DIAGNOSTIC 1 EACH STRIP IN SCH ×5 (00:52→23:27)
[2022-11-26 04:00] VITALS: BP 120/52
[2022-11-26] MEDS: MEROPENEM 500 MG in IV NS 0.9% 50 ML IV SCH ×3 (04:49→20:34)
--- NOTE | 2022-11-26 06:56 | NUR ---
PROP AND SCENERY MAKER CLOSING NOTE PT REMAINS IN STABLE CONDITION, NO SIGNIFICANT CHANGES NOTED. REMAINS ON MECH VENT SETTINGS PRESCRIBED , WELL TOLERATED. AFEBRILE. ALL DUE MEDICATIONS GIVEN ORDERED, NGT FEEDING RUNNING ORDERED. TURN/REPOS Q2H/PRN. HOB ELEVATED AT ALL TIMES. KEPT PT CLEAN, DRY, AND COMFORTABLE. WILL ENDORSE TONIGHT SHIFT FOR NITIN
[2022-11-26] MEDS: JEVITY 1.2 CAL 1,000 ML BOTTLE NG PRN ×2 (07:32→22:54)
[2022-11-26 07:36] LABS: CALCIUM, SERUM 8.1 mg/dL (8.5-10.1); CARBON DIOXIDE 29 mmol/L (21-32); CHLORIDE 111 mmol/L (98-107); CREATININE 0.9 mg/dL (0.6-1.3); GLUCOSE 98 mg/dL (74-106); MAGNESIUM 2.4 mg/dL (1.8-2.4); PHOSPHORUS 2.8 mg/dL (2.5-4.9); POTASSIUM 4.8 mmol/L (3.5-5.1); SODIUM SERUM 137 mmol/L (136-145); UREA NITROGEN, BLOOD 35 mg/dL (7-18)
[2022-11-26 08:00] VITALS: BP 137/72
--- NOTE | 2022-11-26 08:00 | NUR ---
SOCIAL MEDIA PROJECT MANAGER OPENING NOTE RECEIVED PATIENT IN BED, OBTUNDED, ON VENT, SETTING PRESCRIBED, TRACH INTACT AT MIDLINE, IV ACCESS ON MAURILIO, PICC LINE TRIPLE LUMEN, C/D/I. PATIENT ON G-TUBE FEEDING, PLACEMENT CHECKED, ON JEVITYT 1.2 AT 70 CC/HR. TOLERATING WELL, NO N/V/D NOTED. PENALOZA CATHETER IN PLACE, URINE YELLOW AND CLEAR AND DRAINING WELL. BILATERAL WRIST RESTRAIN IN PLACE, WILL BE CHECKED EVERY 15 MINUTES FOR SKIN BREAKDOWN AND CIRCULATION. SAFETY MEASURES IMPLEMENTED, HEAD OF BED ELEVATED, BED IN LOWEST AND LOCKED POSITION. CALL LIGHT WITHIN REACH. PLAN OF CARE CONTINUE.
[2022-11-26 08:02] LABS: BASOPHILS # (AUTO) 0.1 K/uL (0.0-0.2); BASOPHILS % (AUTO) 0.7 % (0.0-2.0); EOSINOPHILS % (AUTO) 0.9 % (0.0-6.0); HEMATOCRIT 22 % (39-51); HEMOGLOBIN 7.2 g/dL (13.5-17.5); LYMPHOCYTES # (AUTO) 0.9 K/uL (0.8-4.8); LYMPHOCYTES % (AUTO) 10.3 % (20.0-44.0); MEAN CORPUSCULAR HGB CONC 32 g/dl (31.0-36.0); MEAN CORPUSCULAR VOLUME 92 fL (80-96); MONOCYTES # (AUTO) 1.1 K/uL (0.1-1.30); MONOCYTES % (AUTO) 11.8 % (2.0-12.0); NEUTROPHILS % (AUTO) 76.3 % (43.0-81.0); PLATELET COUNT (AUTO) 346 K/uL (150-450); RED BLOOD CELL COUNT(AUTO) 2.42 MIL/uL (4.5-6.0); WHITE BLOOD COUNT (AUTO) 9.1 K/uL (4.3-11.0)
[2022-11-26] MEDS: PANTOPRAZOLE 40 MG/PACK PACK NG SCH (08:18)
[2022-11-26] MEDS: LEVETIRACETAM SOL (5 ML) 100 MG/ML UDC NG SCH ×2 (08:19→20:34)
[2022-11-26] MEDS: THIAMINE HCL 100 MG TABLET GT SCH (08:33)
[2022-11-26] MEDS: ENOXAPARIN SODIUM 30 MG/0.3 ML DISP.SYRIN SQ SCH (09:00)
--- NOTE | 2022-11-26 09:44 | NUR ---
DR. RILEY AT THE BEDSIDE, WITH ORDER TO HOLD LOVENOX, NOTED AND CARRIED OUT.
[2022-11-26 12:00] VITALS: BP 107/52
[2022-11-26 16:00] VITALS: BP 99/51
--- NOTE | 2022-11-26 18:32 | NUR ---
COOKER TENDER CLOSING NOTE PATIENT IN BED, OBTUNDED, ON VENT, SETTING PRESCRIBED, TRACH INTACT AT MIDLINE, IV ACCESS ON MAURILIO, PICC LINE TRIPLE LUMEN, C/D/I, TKO, PATENT AND INTACT, FLUSHES WELL. NGT PATENT AND INTACT, PLACEMENT VERIFIED THRU AUSCULTATION, ON JEVITYT 1.2 AT 70 CC/HR. TOLERATING WELL, NO N/V/D NOTED. PENALOZA CATHETER IN PLACE, URINE YELLOW AND CLEAR AND DRAINING WELL. BILATERAL WRIST RESTRAIN IN PLACE, CHECKED EVERY 15 MINUTES FOR SKIN BREAKDOWN AND CIRCULATION. ON TELE MONITOR HR SR 98. SAFETY MEASURES IMPLEMENTED, HEAD OF BED ELEVATED, BED IN LOWEST AND LOCKED POSITION. CALL LIGHT WITHIN REACH. WILL ENDORSE TO NIGHT NURSE FOR NITIN.
--- NOTE | 2022-11-26 19:41 | NUR ---
RN OPENING NOTE PATIENT ASLEEP IN BED. A/OX0, OBTUNDED. NO S/S OF DISTRESS, BREATHING WITHOUT DIFFICULTY ON VENT. MAURILIO PICC LINE TKO INTACT AND PATENT. NGT INTACT W/ NO SIGNS OF DISLODGMENT, RUNNING JEVITY 1.2 70ML/HR. TELE READS SR 98. SAFETY MEASURES IN PLACE: BED LOCKED AND AT LOWEST POSITION, MID-FOWLERS, RAILS UP X2, CALL CAREY WITHIN REACH. WILL CONTINUE TO MONITOR PATIENT.
[2022-11-26 20:00] VITALS: BP 102/50
[2022-11-27] VITALS: BP 92/48
[2022-11-27 04:00] VITALS: BP 113/53
[2022-11-27] MEDS: MEROPENEM 500 MG in IV NS 0.9% 50 ML IV SCH ×3 (04:29→21:20)
[2022-11-27] MEDS: BLOOD SUGAR DIAGNOSTIC 1 EACH STRIP IN SCH ×3 (05:26→18:00)
[2022-11-27] MEDS: INSULIN REGULAR, HUMAN 100 UNIT/ML 3 ML VIAL SQ PRN (05:27)
--- NOTE | 2022-11-27 06:49 | NUR ---
RN CLOSING NOTE PATIENT ASLEEP IN BED. A/OX OBTUNDED. NO S/S OF DISTRESS, BREATHING WITHOUT DIFFICULTY ON T-PIECE AND VENT. MAURILIO PICC SL INTACT AND PATENT. TELE READS SR 88 W/ SLIGHTLY ELEVATED T-WAVES. GTUBE INTACT W/ JEVITY 1.2 @70ML/HR. SAFETY MEASURES IN PLACE: BED LOCKED AND AT LOWEST POSITION, MID-FOWLERS, RAILS UP X2, CALL CAREY WITHIN REACH. WILL ENDORSE TO NEXT SHIFT FOR NITIN.
[2022-11-27 07:24] LABS: BASOPHILS # (AUTO) 0.1 K/uL (0.0-0.2); BASOPHILS % (AUTO) 0.8 % (0.0-2.0); HEMATOCRIT 22 % (39-51); HEMOGLOBIN 7.3 g/dL (13.5-17.5); LYMPHOCYTES # (AUTO) 0.9 K/uL (0.8-4.8); LYMPHOCYTES % (AUTO) 11.2 % (20.0-44.0); MEAN CORPUSCULAR HGB CONC 33 g/dl (31.0-36.0); MEAN CORPUSCULAR VOLUME 92 fL (80-96); MONOCYTES % (AUTO) 11.9 % (2.0-12.0); NEUTROPHILS # (AUTO) 6.4 K/uL (1.8-8.9); NEUTROPHILS % (AUTO) 75.1 % (43.0-81.0); PLATELET COUNT (AUTO) 386 K/uL (150-450); RED BLOOD CELL COUNT(AUTO) 2.43 MIL/uL (4.5-6.0); WHITE BLOOD COUNT (AUTO) 8.5 K/uL (4.3-11.0)
--- NOTE | 2022-11-27 07:50 | NUR ---
RESEARCH METHODS INSTRUCTOR OPENING NOTE RECEIVED PATIENT WITH EYE OPEN, RESPOND TO TOUCH AND VERBAL STIMULI, T-PIECE AND VENT NO RESPIRATORY DISTRESS NOTED. HOB ELEVATED, SIDE RAILS UPX4, NGT IN GOOD PLACE. INFUSING JEVITY 1.2 AT 70ML/HR. NO RESIDUAL NOTED. MOVE ALL EXTREMITIES WITH TOUCH AND VERBAL STIMULI. MAURILIO PICC LINE DRESSING D/C/I. F/C IN PLACE DRAINING CLEAR YELLOW URINE. BILATERAL WRIST RESTRAINS IN PLACE FOLLOWING PROTOCOL.
[2022-11-27 07:53] LABS: CALCIUM, SERUM 8.1 mg/dL (8.5-10.1); CARBON DIOXIDE 25 mmol/L (21-32); CHLORIDE 107 mmol/L (98-107); CREATININE 0.7 mg/dL (0.6-1.3); GLUCOSE 142 mg/dL (74-106); MAGNESIUM 2.3 mg/dL (1.8-2.4); PHOSPHORUS 3.4 mg/dL (2.5-4.9); POTASSIUM 4.9 mmol/L (3.5-5.1); SODIUM SERUM 138 mmol/L (136-145); UREA NITROGEN, BLOOD 33 mg/dL (7-18)
[2022-11-27] MEDS: ENOXAPARIN SODIUM 30 MG/0.3 ML DISP.SYRIN SQ SCH (09:00)
--- NOTE | 2022-11-27 09:00 | NUR ---
ASSEMBLER METAL BUILDING NOTE PER DOCTOR ORDER HOLD LOVENOX FOR NOW.
[2022-11-27] MEDS: THIAMINE HCL 100 MG TABLET GT SCH (10:08)
[2022-11-27] MEDS: LEVETIRACETAM SOL (5 ML) 100 MG/ML UDC NG SCH ×2 (10:08→21:20)
[2022-11-27] MEDS: PANTOPRAZOLE 40 MG/PACK PACK NG SCH (11:10)
--- NOTE | 2022-11-27 15:36 | NUR ---
PLUG CUTTER NOTE SURGERY DEPARTMENT CALLED TO CONFIRM PEG PLACEMENT TOMORROW AT 0700 AM, AT BED SIDE PROCEDURE. PATIENT WILL BE NPO AFTER 10:00 PM. CONSENT IS SIGNED BY KRISTYN CHARGE NURSE AND PATIENT FAMILY MEMBER. PATIENT WILL HAVE TYPE AND SCREEN. LABS IN AM.
[2022-11-27] MEDS: THERAHONEY GEL 1.5 OZ TUBE TP SCH (16:00)
[2022-11-27] MEDS: JEVITY 1.2 CAL 1,000 ML BOTTLE NG PRN (16:31)
[2022-11-27] MEDS: IV NS 0.9% 250 ML IV PRN (16:32)
[2022-11-27 17:07] VITALS: BP 111/60
--- NOTE | 2022-11-27 19:00 | NUR ---
DUPLEX TRIMMER CLOSING NOTE PATIENT AWAKE, NON VERBAL, MOVE HIS ARM VERY OFTEN, BILATERAL RESTRAIN IN PLACE FOLLOWING PROTOCOL, PATIENT HAS T-PIECE VENTILATOR, O2 SAT 98%. NO S/S OF RESPIRATORY DISTRESS NOTED. HOB ELEVATED. MAURILIO PICC LINE INTACT. INFUSING NS TKO. NGT PLACEMENT CHECKED NO RESIDUAL NOTED. TOLERATING NGT FEEDING WELL. F/C IN PLACE DRAINING YELLOW URINE. SAFETY MEASURES IN PLACE BED LOCKED TO THE LOWEST POSITION, CALL LIGHT,TABLE WITHIN REACH. WOUND CARE PERFORMED DIRECTED. PATIENT WILL HAVE NGT CLAMPED TONIGHT AFTER 10:00PM DUE TO PEG PLACEMENT TOMORROW. WILL ENDORSE TO THE FOLLOWING NURSE.
[2022-11-27 20:00] VITALS: BP 124/74
[2022-11-27] MEDS: ACETAMINOPHEN 650 MG/20.3 ML UDC NG PRN (21:52)
--- NOTE | 2022-11-27 22:00 | NUR ---
RN NOTES: PT TEMP INCREASED TO 100.9. TYLENOL 650 MG/20.3 ML GIVEN. PT TOLERATED WELL. WILL CONTINUE TO MONITOR
--- NOTE | 2022-11-27 22:19 | NUR ---
RN NOTES: PT REMAIN NPO AFTER 10 PM FOR PEG PLACEMENT AT 7 AM.
[2022-11-28] VITALS: BP 115/62
[2022-11-28] MEDS: BLOOD SUGAR DIAGNOSTIC 1 EACH STRIP IN SCH ×5 (00:53→23:30)
[2022-11-28] MEDS: INSULIN REGULAR, HUMAN 100 UNIT/ML 3 ML VIAL SQ PRN ×3 (00:53→23:31)
--- NOTE | 2022-11-28 00:54 | NUR ---
RN NOTES: PT'S BLOOD SUGAR 86. NO COVERAGE NEEDED. NO S/S OF HYPER/HYPOGLYCEMIA. WILL CONTINUE TO MONITOR
[2022-11-28 04:00] VITALS: BP 105/63
[2022-11-28] MEDS: MEROPENEM 500 MG in IV NS 0.9% 50 ML IV SCH ×2 (05:40→13:14)
[2022-11-28 06:32] LABS: BASOPHILS # (AUTO) 0.1 K/uL (0.0-0.2); BASOPHILS % (AUTO) 0.7 % (0.0-2.0); EOSINOPHILS % (AUTO) 0.5 % (0.0-6.0); HEMATOCRIT 24 % (39-51); HEMOGLOBIN 7.5 g/dL (13.5-17.5); LYMPHOCYTES # (AUTO) 1.1 K/uL (0.8-4.8); LYMPHOCYTES % (AUTO) 11.5 % (20.0-44.0); MEAN CORPUSCULAR HGB CONC 32 g/dl (31.0-36.0); MEAN CORPUSCULAR VOLUME 95 fL (80-96); MONOCYTES # (AUTO) 0.8 K/uL (0.1-1.30); MONOCYTES % (AUTO) 8.6 % (2.0-12.0); NEUTROPHILS # (AUTO) 7.2 K/uL (1.8-8.9); NEUTROPHILS % (AUTO) 78.7 % (43.0-81.0); PLATELET COUNT (AUTO) 348 K/uL (150-450); RED BLOOD CELL COUNT(AUTO) 2.48 MIL/uL (4.5-6.0); WHITE BLOOD COUNT (AUTO) 9.1 K/uL (4.3-11.0)
--- NOTE | 2022-11-28 06:46 | NUR ---
RN CLOSING NOTES PT ON BED, OBTUNDED. ON TRACH TO MECHANICAL VENT SETTING: S#6, AC-12, TV- 400, FIO2-40% PEEP OFF. IV ACCESS ON MAURILIO PICC INTACT AND PATENT. ON NGT FEEDING. RUNNING JEVITY 1.2AT 70CC/HR. PT REMAIN NPO AFTER 10 PM FOR GTUBE PLACEMENT. NO FACIAL GRIMACING NOTED. NO ACUTE DISTRESS. PENALOZA CATH IN PLACE. DRAINING BY GRAVITY. BILATERAL SOFT WRIST RESTRAINT IN PLACE. RELEASED Q 2HOURS TO CHECK CIRCULATIONS. PT'S BS 82. NO COVERAGE NEEDED. NO S/S OF HYPER/HYPOGLYCEMIA. ALL DUE MEDS GIVEN ORDERED, TALKED TO CHUCK SPLITTERALANA MAXWELL AND GAVE HER THE REPORT. ALL SAFETY MEASURES IN PLACE. KEEP HEAD OF THE BED ELEVATED. SIDE RAILS UP X3, BED IN LOWEST POSITION AND LOCKED. PLACE CALL LIGHT WITH IN REACH. WILL ENDORSE TO MORNING SHIFT NURSE.
[2022-11-28 06:49] LABS: IRON, SERUM 9 ug/dl (50-175); TOTAL IRON BINDING CAPACITY 164 ug/dl (250-450)
[2022-11-28 07:00] LABS: CALCIUM, SERUM 8.1 mg/dL (8.5-10.1); CARBON DIOXIDE 28 mmol/L (21-32); CHLORIDE 107 mmol/L (98-107); CREATININE 0.8 mg/dL (0.6-1.3); GLUCOSE 102 mg/dL (74-106); MAGNESIUM 2.2 mg/dL (1.8-2.4); PHOSPHORUS 4.1 mg/dL (2.5-4.9); POTASSIUM 4.4 mmol/L (3.5-5.1); SODIUM SERUM 140 mmol/L (136-145); UREA NITROGEN, BLOOD 35 mg/dL (7-18)
[2022-11-28] MEDS: PANTOPRAZOLE 40 MG/PACK PACK NG SCH (07:30)
--- NOTE | 2022-11-28 07:31 | NUR ---
SENIOR DEVOPS ENGINEER OPENING NOTE RECEIVED PATIENT IN BED, OBTUNDED. ON [facility] VENT, TOLERATING CURRENT SETTING. NO ACUTE RESPIRATORY DISTRESS NOTED. ON FINANCIAL SECRETARY WITH CURRENT READING OF SR. NO PAIN OR DISCOMFORT NOTED AT THIS TIME. WITH PICC, C/D/I. WITH SOFT RESTRAINTS IN BILATERAL HAND, NO REDNESS NOTED, PULSE CHECKED. S/P PEG TUBE REINSERTION. WITH PENALOZA DRAINING YELLOW URINE VIA GRAVITY. SAFETY MEASURES IMPLEMENTED: BED IN LOWEST LOCKED POSITION, SIDE RAILS UP X 2, CALL LIGHT AND TRAY TABLE WITHIN EASY REACH. WILL CONTINUE TO MONITOR.
[2022-11-28 08:00] VITALS: BP 112/55
[2022-11-28] MEDS: LEVETIRACETAM SOL (5 ML) 100 MG/ML UDC NG SCH (08:00)
--- NOTE | 2022-11-28 08:00 | NUR ---
RN NOTES DR. DESAI ORDERED TO HOLD TUBE FEEDING AND RESUME TOMORROW. CARRIED OUT.
[2022-11-28] MEDS: THERAHONEY GEL 1.5 OZ TUBE TP SCH (09:00)
[2022-11-28] MEDS: ENOXAPARIN SODIUM 30 MG/0.3 ML DISP.SYRIN SQ SCH (09:00)
[2022-11-28] MEDS: THIAMINE HCL 100 MG TABLET GT SCH (09:30)
[2022-11-28 12:00] VITALS: BP 106/58
[2022-11-28] MEDS: DEXTROSE 50%-WATER 50 ML DISP.SYRIN IV PRN ×2 (12:07→17:20)
--- NOTE | 2022-11-28 12:08 | NUR ---
RN NOTE PATIENT BS 40, RECHECKED BS 20, D50-50 GIVEN. CHARGE NURSE AND CLOTH MEASURER ON DUTY AWARE.
--- NOTE | 2022-11-28 12:18 | NUR ---
RN NOTE RECHECKED BS 71 AFTER D50-50.
[2022-11-28] MEDS ORDERED: IV D5/0.45 NACL 1,000 ML IV PRN (12:30)
[2022-11-28 13:03] LABS: FERRITIN 222 ng/mL (8-388)
[2022-11-28 16:00] VITALS: BP 107/58
--- NOTE | 2022-11-28 17:30 | NUR ---
RN NOTE PATIENT BS 48, RECHECKED BS 53, D50-50 GIVEN. CHARGE NURSE AND JOINERS SUPERVISOR ON DUTY AWARE. JOINERS SUPERVISOR ORDERED TO CHANGE CURRENT IVF TO D10 1/2 NS AT 75ML/HR, CARRIED OUT.
--- NOTE | 2022-11-28 18:00 | NUR ---
RN NOTE RECHECKED BS 73 AFTER D50-50.
[2022-11-28] MEDS ORDERED: Sodium Chloride 77 MEQ in IV 10% DEXTROSE 1,000 ML IV PRN (19:00)
--- NOTE | 2022-11-28 19:30 | NUR ---
SALES MANAGER PREARRANGED FUNERALS OPENING NOTE RECEIVED PATIENT IN BED, AWAKE AND OBTUNDED. ON [facility] VENT, TOLERATING VENT SETTINGS WELL, SATING @ 100%. NO S/SX OF ACUTE RESPIRATORY DISTRESS NOTED AT THIS TIME. NO SOB. BREATHING IS EVEN AND UNLABORED. ON CONTRACT ASSOCIATE WITH CURRENT READING OF SR, HR IN THE 70s. IV ACCESS NOTED ON MAURILIO PICC, C/D/I. RUNNING D10 KCL @ 75 CC/HR. WITH SOFT WRIST RESTRAINTS IN BILATERAL HANDS, NO REDNESS NOTED, PULSE CHECKED. PT IS S/P PEG TUBE REINSERTION THIS MORNING. GTF TO RESUME TOMORROW PER MD. WITH PENALOZA CATH DRAINING YELLOW URINE VIA GRAVITY. ALL SAFETY MEASURES IN PLACE: BED IN LOWEST, LOCKED POSITION, SIDE RAILS UP X 2, CALL LIGHT WITHIN EASY REACH. WILL CONTINUE TO MONITOR.
--- NOTE | 2022-11-28 19:45 | NUR ---
MANAGER TECHNOLOGY CLOSING NOTE PATIENT IN BED, OBTUNDED. [facility], TOLERATING CURRENT SETTING. ON SPRAY MACHINE OPERATOR WITH CURRENT READING OF SR. WITH PICC IN MAURILIO WITH ONGOING IVF D10 1/2NS AT 75ML/HR, C/D/I. WITH SOFT RESTRAINTS IN BILATERAL HAND, NO REDNESS NOTED, PULSE CHECKED. PEG TUBE FEEDING HOLD. WITH PENALOZA DRAINING YELLOW URINE VIA GRAVITY. NEEDS ATTENDED. SAFETY MEASURES IMPLEMENTED: BED IN LOWEST LOCKED POSITION, SIDE RAILS UP X 2, CALL LIGHT AND TRAY TABLE WITHIN EASY REACH. WILL ENDORSE NITIN TO CORRECTIONAL FOOD SERVICE SUPERVISOR.
[2022-11-28 20:00] VITALS: BP 129/90
[2022-11-28] MEDS ORDERED: LEVETIRACETAM (500MG) 1,000 MG in IV NS 0.9% 100 ML IV ONE (21:00)
[2022-11-29] VITALS (9 sets, daily range): BP systolic 103–122; BP diastolic 43–78
[2022-11-29] MEDS: INSULIN REGULAR, HUMAN 100 UNIT/ML 3 ML VIAL SQ PRN (05:30)
[2022-11-29] MEDS: BLOOD SUGAR DIAGNOSTIC 1 EACH STRIP IN SCH ×3 (05:30→18:13)
--- NOTE | 2022-11-29 05:57 | NUR ---
TELETYPIST CLOSING NOTE NO SIGNIFICANT CHANGE T/O THE NIGHT. PT IN STABLE CONDITION. ALL DUE MEDS GIVEN. ALL NEEDS MET. PM CARE DONE. TURNED AND REPOSITIONED. WILL ENDORSE TO AM SHIFT NURSE FOR NITIN.
[2022-11-29] MEDS: ENOXAPARIN SODIUM 30 MG/0.3 ML DISP.SYRIN SQ SCH (09:00)
[2022-11-29] MEDS: PANTOPRAZOLE 40 MG/PACK PACK NG SCH (09:04)
[2022-11-29] MEDS: LEVETIRACETAM SOL (5 ML) 100 MG/ML UDC GT SCH ×2 (09:04→20:20)
[2022-11-29] MEDS: THERAHONEY GEL 1.5 OZ TUBE TP SCH (09:05)
--- NOTE | 2022-11-29 09:06 | NUR ---
Lovenox held. S/p PEG reinsertion 11/28 Noticed dry blood / slight bleeding noted to Peg site H/H stable. VSZandra BARBER notified
[2022-11-29] MEDS: THIAMINE HCL 100 MG TABLET GT SCH (09:16)
[2022-11-29 09:53] LABS: BASOPHILS % (AUTO) 0.5 % (0.0-2.0); HEMATOCRIT 21 % (39-51); LYMPHOCYTES # (AUTO) 0.9 K/uL (0.8-4.8); LYMPHOCYTES % (AUTO) 12.5 % (20.0-44.0); MEAN CORPUSCULAR HGB CONC 32 g/dl (31.0-36.0); MEAN CORPUSCULAR VOLUME 92 fL (80-96); MONOCYTES # (AUTO) 0.5 K/uL (0.1-1.30); MONOCYTES % (AUTO) 6.7 % (2.0-12.0); NEUTROPHILS % (AUTO) 79.3 % (43.0-81.0); PLATELET COUNT (AUTO) 403 K/uL (150-450); RED BLOOD CELL COUNT(AUTO) 2.28 MIL/uL (4.5-6.0); WHITE BLOOD COUNT (AUTO) 7.5 K/uL (4.3-11.0)
[2022-11-29 10:48] LABS: HEMOGLOBIN 6.7 g/dL (13.5-17.5)
[2022-11-29 12:13] LABS: CARBON DIOXIDE 27 mmol/L (21-32); CHLORIDE 107 mmol/L (98-107); POTASSIUM 3.8 mmol/L (3.5-5.1); SODIUM SERUM 139 mmol/L (136-145)
[2022-11-29 12:14] LABS: CALCIUM, SERUM 8.1 mg/dL (8.5-10.1); CREATININE 0.8 mg/dL (0.6-1.3); GLUCOSE 143 mg/dL (74-106); PHOSPHORUS 2.9 mg/dL (2.5-4.9); UREA NITROGEN, BLOOD 22 mg/dL (7-18)
[2022-11-29] MEDS: SOD FERRIC GLUC 125 MG in IV NS 0.9% 100 ML IV SCH (15:19)
--- NOTE | 2022-11-29 19:55 | NUR ---
RN Opening Notes Received pt in bed, asleep, awakens to verbal stimuli. Obtunded. On mechanical vent and tolerating well. Tele monitor detects SR. IV access in MAURILIO PICC. IV is intact, patent, and flushing well. Safety precautions in place: bed in lowest, locked position, siderails upX2, and brakes on. Table and call light within reach. All needs met at this time.
[2022-11-29 20:18] LABS: BAND % (MANUAL) 1 % (0.0-5.0); LYMPHOCYTES % (MANUAL) 13 % (16-48); MONOCYTES % (MANUAL) 11 % (0-11.0); NEUTROPHILS % (MANUAL) 75 (42-76)
[2022-11-30] VITALS: BP 110/55
[2022-11-30] MEDS: BLOOD SUGAR DIAGNOSTIC 1 EACH STRIP IN SCH ×5 (01:03→23:22)
[2022-11-30] MEDS: INSULIN REGULAR, HUMAN 100 UNIT/ML 3 ML VIAL SQ PRN ×4 (01:04→23:24)
[2022-11-30 04:00] VITALS: BP 120/58
--- NOTE | 2022-11-30 06:41 | NUR ---
RN Closing Notes Pt in bed, asleep, awakens to verbal stimuli. Obtunded. On mechanical vent and tolerating well. Tele monitor detects SR. IV access in MAURILIO PICC. IV is intact, patent, and flushing well. All orders carried out. All needs met. Pt kept clean and dry. Safety precautions in place: bed in lowest, locked position, siderails upX2, and brakes on. Table and call light within reach. Will endorse to oncoming shift for NITIN.
[2022-11-30 07:02] LABS: BASOPHILS % (AUTO) 0.5 % (0.0-2.0); HEMATOCRIT 25 % (39-51); HEMOGLOBIN 8.3 g/dL (13.5-17.5); LYMPHOCYTES # (AUTO) 0.9 K/uL (0.8-4.8); LYMPHOCYTES % (AUTO) 11.7 % (20.0-44.0); MEAN CORPUSCULAR HGB CONC 33 g/dl (31.0-36.0); MEAN CORPUSCULAR VOLUME 90 fL (80-96); MONOCYTES # (AUTO) 0.7 K/uL (0.1-1.30); MONOCYTES % (AUTO) 8.5 % (2.0-12.0); NEUTROPHILS # (AUTO) 6.1 K/uL (1.8-8.9); NEUTROPHILS % (AUTO) 78.3 % (43.0-81.0); PLATELET COUNT (AUTO) 397 K/uL (150-450); RED BLOOD CELL COUNT(AUTO) 2.79 MIL/uL (4.5-6.0); WHITE BLOOD COUNT (AUTO) 7.8 K/uL (4.3-11.0)
[2022-11-30] MEDS: JEVITY 1.2 CAL 1,000 ML BOTTLE NG PRN (07:18)
--- NOTE | 2022-11-30 07:30 | NUR ---
WHEEL BUFFER AM NOTE RECEIVED PATIENT IN BED, AWAKE AND OBTUNDED. WITH SH 6 TRACH TO MECH VENT, TOLERATING VENT SETTINGS WELL, AC 12 TV 400 FIO2 30% PEEP 0. BREATHING EVEN AND UNLABORED. O2 SAT 100%. SR HR 76 ON MONITOR. NO SIGNS OF PAIN OR DISCOMFORT. MAURILIO PICC LINE FLUSHES WELL, CDI DRESSING. SITE CLEAR. JEVITY 1.2 RUNNING AT 65 ML/HR. GTF CHECKED FOR PLACEMENT, 20 ML RESIDUAL, FLUSHED. PENALOZA CATH IN PLACE DRAINING YELLOW COLORED URINE, ADEQUATE AMOUNT. ON BILATERAL SOFT WRIST RESTRAINT, REMOVED AND CHECKED FOR PULSE AND CIRCULATION. THEN EVERY 2 HOURS.SEE NURSING FLOWSHEET FOR SKIN ISSUES. WILL PERFORM PRESCRIBED WOUND TREATMENT AND SKIN CARE ORDERED. TURN AND REPOSITION Q 2 HOURS. ALL SAFETY MEASURES IN PLACE: BED IN LOWEST, LOCKED POSITION, SIDE RAILS UP X 2, CALL LIGHT WITHIN EASY REACH. WILL CONTINUE TO MONITOR.
[2022-11-30 07:45] LABS: CALCIUM, SERUM 8.3 mg/dL (8.5-10.1); CARBON DIOXIDE 27 mmol/L (21-32); CHLORIDE 109 mmol/L (98-107); CREATININE 0.8 mg/dL (0.6-1.3); GLUCOSE 136 mg/dL (74-106); PHOSPHORUS 3.1 mg/dL (2.5-4.9); SODIUM SERUM 141 mmol/L (136-145); UREA NITROGEN, BLOOD 22 mg/dL (7-18)
[2022-11-30 08:00] VITALS: BP 102/50
[2022-11-30] MEDS: PANTOPRAZOLE 40 MG/PACK PACK NG SCH (08:37)
[2022-11-30] MEDS: THIAMINE HCL 100 MG TABLET GT SCH (08:37)
[2022-11-30] MEDS: LEVETIRACETAM SOL (5 ML) 100 MG/ML UDC GT SCH ×2 (08:37→20:09)
[2022-11-30] MEDS: THERAHONEY GEL 1.5 OZ TUBE TP SCH (08:38)
[2022-11-30] MEDS: ENOXAPARIN SODIUM 30 MG/0.3 ML DISP.SYRIN SQ SCH (08:40)
--- NOTE | 2022-11-30 09:30 | NUR ---
RN NOTES DUE MEDS GIVEN
[2022-11-30 12:00] VITALS: BP 96/52
[2022-11-30] MEDS: SOD FERRIC GLUC 125 MG in IV NS 0.9% 100 ML IV SCH (13:41)
--- NOTE | 2022-11-30 15:53 | NUR ---
RN NOTES PM CARE DONE. REPORT GIVEN TO [facility] FOR NITIN.
[2022-11-30 16:00] VITALS: BP 107/67
--- NOTE | 2022-11-30 18:24 | NUR ---
GTUBE RESIDUAL CHECKED 25ML. STILL ON 65ML/HR, REPORT TO THE NIGHT RN.
--- NOTE | 2022-11-30 18:51 | NUR ---
CLOSING NOTE; PATIENT IS RESTING IN BED COMFORTABLY, NON VERBAL BUT RESPONSE TO STIMULI, NO SIGNS OF IN DISTRESS, ON VENTILATOR WITH FIO2 30%, 100% SPO2, GTUBE IS INFUSING WELL WITH 65ML/HR, SAFETY MEASURES IN PLACE, BED IN LOW POSITION LOCKED, SIDE RAILS UPX3, CALL LIGHT WITHIN REACH.
[2022-11-30 20:00] VITALS: BP 114/63
--- NOTE | 2022-11-30 23:27 | NUR ---
teletype technician notes Blood sugar at 12mn is 136mg/dl 2 units of regular insulin given per sliding scale pts on gt feeding
--- NOTE | 2022-11-30 23:56 | NUR ---
PEGA DEVELOPER OPENING NOTE RECEIVED PATIENT IN BED, AWAKE AND OBTUNDED. WITH SH 6 TRACH TO [facility] SURJIT ORDERED TOLERATING VENT SETTINGS WELL,AC 12 TV 400 FIO2 30% PEEP 0. BREATHING EVEN AND UNLABORED. O2 SAT 100%. SR HR 76 ON MONITOR. NO SIGNS OF PAIN OR DISCOMFORT. MAURILIO PICC LINE FLUSHES WELL, CDI DRESSING. SITE CLEAR. JEVITY 1.2 RUNNING AT 65 ML/HR. GTF CHECKED FOR PLACEMENT. PENALOZA CATH IN PLACE DRAINING YELLOW COLORED URINE. ON BILATERAL SOFT WRIST RESTRAINT, REMOVED AND CHECKED FOR CIRCULATION. THEN EVERY 2 HOURS, TURN AND REPOSITION Q 2 HOURS. ALL SAFETY MEASURES IN PLACE: BED IN LOWEST, LOCKED POSITION, SIDE RAILS UP X 2, CALL LIGHT WITHIN EASY REACH. WILL CONTINUE TO MONITOR. Addendum: 12/01/22 at 0002 by TONYA SCALES RN OPENING NOTES AT 2000 HRS NOT 2356 HRS
[2022-12-01] VITALS: BP 126/61
[2022-12-01] MEDS: JEVITY 1.2 CAL 1,000 ML BOTTLE NG PRN ×2 (01:48→14:37)
[2022-12-01 04:00] VITALS: BP 125/62
[2022-12-01] MEDS: BLOOD SUGAR DIAGNOSTIC 1 EACH STRIP IN SCH ×4 (05:35→23:10)
[2022-12-01] MEDS: INSULIN REGULAR, HUMAN 100 UNIT/ML 3 ML VIAL SQ PRN ×2 (05:36→23:11)
--- NOTE | 2022-12-01 05:37 | NUR ---
telecom assistant notes Blood sugar at 6am is 128mg/dl no coverage of insulin given per sliding scale .
--- NOTE | 2022-12-01 06:33 | NUR ---
MICROBIOLOGY TEACHER CLOSING NOTE; PATIENT REMAIN IN BED NON VERBAL BUT RESPONSE TO STIMULI, NO SIGNS OF IN DISTRESS, ON VENTILATOR SETTINGS ORDERED TOLERATING WELL ,GTUBE IS INFUSING WELL WITH 70ML/HR ON GOAL .TURNED AND REPOSITION SAFETY MEASURES IN PLACE, BED IN LOW POSITION LOCKED, SIDE RAILS UPX3, CALL LIGHT WITHIN REACH.WILL ENDORSE TO RN DAY SHIFT FOR CONTINUITY OF CARE.
--- NOTE | 2022-12-01 07:12 | NUR ---
PHOTOGRAMMETRIC TECHNICIAN OPENING NOTE RECEIVED PATIENT IN BED, AWAKE AND OBTUNDED. WITH SH 6 TRACH TO [facility] SURJIT ORDERED TOLERATING VENT SETTINGS WELL,AC 12 TV 400 FIO2 30% PEEP 0. . O2 SAT 100%. SR HR 78 ON MONITOR. NO SIGNS OF PAIN OR DISCOMFORT. MAURILIO PICC LINE FLUSHES WELL, CDI DRESSING. SITE CLEAR. JEVITY 1.2 RUNNING AT 70 ML/HR. GTF CHECKED FOR PLACEMENT. PENALOZA CATH IN PLACE DRAINING YELLOW COLORED URINE. ON BILATERAL SOFT WRIST RESTRAINT, REMOVED AND CHECKED FOR CIRCULATION. THEN EVERY 2 HOURS, TURN AND REPOSITION Q [address] HOURS. ALL SAFETY MEASURES IN PLACE: BED IN LOWEST, LOCKED POSITION, SIDE RAILS UP X 2, CALL LIGHT WITHIN EASY REACH. WILL CONTINUE TO MONITOR.
[2022-12-01 07:15] LABS: BASOPHILS # (AUTO) 0.1 K/uL (0.0-0.2); BASOPHILS % (AUTO) 0.6 % (0.0-2.0); EOSINOPHILS % (AUTO) 0.7 % (0.0-6.0); HEMATOCRIT 27 % (39-51); HEMOGLOBIN 8.8 g/dL (13.5-17.5); LYMPHOCYTES # (AUTO) 0.9 K/uL (0.8-4.8); LYMPHOCYTES % (AUTO) 9.8 % (20.0-44.0); MEAN CORPUSCULAR HGB CONC 33 g/dl (31.0-36.0); MEAN CORPUSCULAR VOLUME 90 fL (80-96); MONOCYTES # (AUTO) 0.7 K/uL (0.1-1.30); MONOCYTES % (AUTO) 8.1 % (2.0-12.0); NEUTROPHILS # (AUTO) 7.5 K/uL (1.8-8.9); NEUTROPHILS % (AUTO) 80.8 % (43.0-81.0); PLATELET COUNT (AUTO) 412 K/uL (150-450); RED BLOOD CELL COUNT(AUTO) 2.95 MIL/uL (4.5-6.0); WHITE BLOOD COUNT (AUTO) 9.2 K/uL (4.3-11.0)
[2022-12-01 08:00] VITALS: BP 125/79
[2022-12-01] MEDS: THIAMINE HCL 100 MG TABLET GT SCH (08:34)
[2022-12-01] MEDS: PANTOPRAZOLE 40 MG/PACK PACK NG SCH (08:34)
[2022-12-01] MEDS: LEVETIRACETAM SOL (5 ML) 100 MG/ML UDC GT SCH ×2 (08:34→20:02)
[2022-12-01] MEDS: THERAHONEY GEL 1.5 OZ TUBE TP SCH (08:39)
[2022-12-01 08:50] LABS: CALCIUM, SERUM 8.1 mg/dL (8.5-10.1); CREATININE 0.6 mg/dL (0.6-1.3); PHOSPHORUS 3.1 mg/dL (2.5-4.9); POTASSIUM 4.2 mmol/L (3.5-5.1)
[2022-12-01 12:08] VITALS: BP 123/54
[2022-12-01] MEDS: SOD FERRIC GLUC 125 MG in IV NS 0.9% 100 ML IV SCH (14:29)
[2022-12-01 16:00] VITALS: BP 120/60
--- NOTE | 2022-12-01 18:48 | NUR ---
LEAD SHOP OPERATOR CLOSING NOTE; PATIENT REMAIN IN BED NON VERBAL BUT RESPONSE TO STIMULI, NO SIGNS OF IN DISTRESS, ON VENTILATOR SETTINGS ORDERED TOLERATING WELL ,GTUBE IS INFUSING WELL JEVITY 70ML/HR TURNED AND REPOSITION SAFETY MEASURES IN PLACE, BED IN LOW POSITION LOCKED, SIDE RAILS UPX3, CALL LIGHT WITHIN REACH.ALL MEDICATIONS WERE ADMINISTRED WILL ENDORSE MAINTENANCE AND ENGINEERING MANAGER NURSE TO [facility] POC
[2022-12-01 20:00] VITALS: BP 144/77
--- NOTE | 2022-12-01 20:34 | NUR ---
SERVICE ORDER DISPATCHER CHIEF OPENING NOTE RECEIVED PATIENT IN BED, AWAKE AND OBTUNDED. WITH SH 6 TRACH TO [facility] ORDERED TOLERATING VENT SETTINGS WELL,AC 12 TV 400 FIO2 30% PEEP 0. BREATHING EVEN AND UNLABORED. O2 SAT 99%. SR HR 77 ON MONITOR. NO SIGNS OF PAIN OR DISCOMFORT. MAURILIO PICC LINE FLUSHES WELL, CDI DRESSING. SITE CLEAR. JEVITY 1.2 RUNNING AT 70 ML/HR. GTF CHECKED FOR PLACEMENT. PENALOZA CATH IN PLACE DRAINING YELLOW COLORED URINE. ON BILATERAL SOFT WRIST RESTRAINT, REMOVED AND CHECKED FOR CIRCULATION. THEN EVERY 2 HOURS, TURN AND REPOSITION Q 2 HOURS. ALL SAFETY MEASURES IN PLACE: BED IN LOWEST, LOCKED POSITION, SIDE RAILS UP X 2, CALL LIGHT WITHIN EASY REACH. WILL CONTINUE TO MONITOR.
--- NOTE | 2022-12-01 23:12 | NUR ---
telecommunications field technician notes Blood sugar for 12mn is 120mg/dl no insulin coverage given per sliding scale
[2022-12-02] VITALS: BP 137/62
[2022-12-02 04:00] VITALS: BP 128/71
[2022-12-02] MEDS: BLOOD SUGAR DIAGNOSTIC 1 EACH STRIP IN SCH ×3 (05:22→17:17)
--- NOTE | 2022-12-02 05:23 | NUR ---
devyn rn notes Blood sugar for 6mn is 123mg/dl no insulin coverage given per sliding scale
[2022-12-02] MEDS: INSULIN REGULAR, HUMAN 100 UNIT/ML 3 ML VIAL SQ PRN ×2 (05:27→17:19)
--- NOTE | 2022-12-02 06:25 | NUR ---
MANAGER OF DISTRIBUTION CLOSING NOTE; PATIENT REMAIN IN BED NON VERBAL BUT RESPONSE TO STIMULI, NO SIGNS OF IN DISTRESS, ON VENTILATOR SETTINGS ORDERED TOLERATING WELL ,GTUBE IS INFUSING WELL WITH 70ML/HR ON GOAL .TURNED AND REPOSITION SAFETY MEASURES IN PLACE, BED IN LOW POSITION LOCKED, SIDE RAILS UPX3, CALL LIGHT WITHIN REACH.WILL ENDORSE TO RN DAY SHIFT FOR CONTINUITY OF CARE.
--- NOTE | 2022-12-02 07:09 | NUR ---
STATEMENT DISTRIBUTION CLERK OPENING NOTE RECEIVED PATIENT IN BED, OBTUNDED. WITH SH 6 TRACH TO [facility] SURJIT ORDERED TOLERATING VENT SETTINGS WELL,AC 12 TV 400 FIO2 30% PEEP 0. . O2 SAT 100%. SR HR 78 ON MONITOR. NO SIGNS OF PAIN OR DISCOMFORT. MAURILIO PICC LINE FLUSHES WELL, CDI DRESSING. SITE CLEAR. JEVITY 1.2 RUNNING AT 70 ML/HR. GTF CHECKED FOR PLACEMENT. PENALOZA CATH IN PLACE DRAINING YELLOW COLORED URINE. ON BILATERAL SOFT WRIST RESTRAINT, REMOVED AND CHECKED FOR CIRCULATION. THEN EVERY 2 HOURS, TURN AND REPOSITION Q [address] HOURS. ALL SAFETY MEASURES IN PLACE: BED IN LOWEST, LOCKED POSITION, SIDE RAILS UP X 2, CALL LIGHT WITHIN EASY REACH. WILL CONTINUE TO MONITOR.
[2022-12-02 08:00] VITALS: BP 118/69
[2022-12-02] MEDS: LEVETIRACETAM SOL (5 ML) 100 MG/ML UDC GT SCH ×2 (08:11→21:20)
[2022-12-02] MEDS: THIAMINE HCL 100 MG TABLET GT SCH (08:12)
[2022-12-02] MEDS: THERAHONEY GEL 1.5 OZ TUBE TP SCH (08:12)
[2022-12-02] MEDS: PANTOPRAZOLE 40 MG/PACK PACK NG SCH (08:12)
[2022-12-02] MEDS: JEVITY 1.2 CAL 1,000 ML BOTTLE NG PRN (08:27)
[2022-12-02 12:00] VITALS: BP 121/67
[2022-12-02] MEDS: SOD FERRIC GLUC 125 MG in IV NS 0.9% 100 ML IV SCH (13:03)
[2022-12-02 16:19] VITALS: BP 143/80
--- NOTE | 2022-12-02 18:46 | NUR ---
DONOR SERVICES TECHNICIAN CLOSING NOTE; PATIENT REMAIN IN BED NON VERBAL BUT RESPONSE TO STIMULI, NO SIGNS OF IN DISTRESS, ON VENTILATOR SETTINGS ORDERED TOLERATING WELL ,GTUBE IS INFUSING WELL WITH 70ML/HR .TURNED AND REPOSITION SAFETY MEASURES IN PLACE, BED IN LOW POSITION LOCKED, SIDE RAILS UPX3, CALL LIGHT WITHIN REACH.WILL ENDORSE TO CLINICAL INSTRUCTOR NURSE FOR CONTINUITY OF CARE.
--- NOTE | 2022-12-02 19:10 | NUR ---
TELE NOTE: RECEIVED REPORT FROM AM NURSE JAMEE PT IS ALERT RESPONDS TO TACTILE STIMULI. PT IS ON TRACH TO VENT SETTING TOLERATING WELL OF AC 12,TV LC==340,FIO2 30% PEEP OF 0, 02 SAT 99%, AND IS SR RHYTHM ON THE MONITOR NO SIGNS OF PAIN OR DISTRESS NOTED. FALL AND SAFETY MAINTAINED . PT TURNED REPOSITIONED ORDERED. WILL CONTINUE TO MONITOR .
[2022-12-02 20:00] VITALS: BP 127/67
[2022-12-03] VITALS: BP 128/72
[2022-12-03] MEDS: BLOOD SUGAR DIAGNOSTIC 1 EACH STRIP IN SCH ×5 (00:36→23:41)
[2022-12-03] MEDS: INSULIN REGULAR, HUMAN 100 UNIT/ML 3 ML VIAL SQ PRN ×3 (00:37→23:44)
[2022-12-03 04:00] VITALS: BP 114/58
[2022-12-03] MEDS: JEVITY 1.2 CAL 1,000 ML BOTTLE NG PRN ×2 (04:51→22:21)
--- NOTE | 2022-12-03 06:00 | NUR ---
CRANE MECHANIC CLOSING NOTE: MEDICATION GIVEN ORDER NO SIGNS OF ADVERSE REACTION NOTED. PATIENT TURNED AND REPOSITIONED ORDERED NO SIGNS OF DISTRESS NOTED DURING REPOSITIONING. PT CHECKED ON ROUNDING EVERY 2 HOURS. PT AM BLOOD SUGAR IS 123 AND BLOOD SUGAR AT MIDNIGHT WAS 92 NO INSULIN REQUIRED NO
--- NOTE | 2022-12-03 07:30 | NUR ---
METAL NUMERICAL CONTROL PROGRAMMER AM NOTE RECEIVED PATIENT IN BED, AWAKE AND OBTUNDED. WITH SH 6 TRACH TO MECH VENT, TOLERATING VENT SETTINGS WELL, AC 12 TV 400 FIO2 30% PEEP 0. BREATHING EVEN AND UNLABORED. O2 SAT 100%. SR HR 94 ON MONITOR. NO SIGNS OF PAIN OR DISCOMFORT. MAURILIO PICC LINE FLUSHES WELL, CDI DRESSING. SITE CLEAR. JEVITY 1.2 RUNNING AT 70 ML/HR. GTF CHECKED FOR PLACEMENT, 20 ML RESIDUAL, FLUSHED. PENALOZA CATH IN PLACE DRAINING YELLOW COLORED URINE, ADEQUATE AMOUNT. ON BILATERAL SOFT WRIST RESTRAINT, REMOVED AND CHECKED FOR PULSE AND CIRCULATION. THEN EVERY 2 HOURS.SEE NURSING FLOWSHEET FOR SKIN ISSUES. WILL PERFORM PRESCRIBED WOUND TREATMENT AND SKIN CARE ORDERED. TURN AND REPOSITION Q 2 HOURS. ALL SAFETY MEASURES IN PLACE: BED IN LOWEST, LOCKED POSITION, SIDE RAILS UP X 2, CALL LIGHT WITHIN EASY REACH. WILL CONTINUE TO MONITOR.
[2022-12-03 08:00] VITALS: BP 117/69
[2022-12-03] MEDS: THERAHONEY GEL 1.5 OZ TUBE TP SCH (09:13)
[2022-12-03] MEDS: THIAMINE HCL 100 MG TABLET GT SCH (09:22)
[2022-12-03] MEDS: PANTOPRAZOLE 40 MG/PACK PACK NG SCH (09:22)
[2022-12-03] MEDS: LEVETIRACETAM SOL (5 ML) 100 MG/ML UDC GT SCH ×2 (09:23→20:54)
--- NOTE | 2022-12-03 09:30 | NUR ---
RN NOTES DUE MEDS GIVEN
[2022-12-03 12:00] VITALS: BP 118/74
[2022-12-03] MEDS: SOD FERRIC GLUC 125 MG in IV NS 0.9% 100 ML IV SCH (14:38)
[2022-12-03 16:00] VITALS: BP 107/69
--- NOTE | 2022-12-03 18:44 | NUR ---
POTATO PICKER CLOSING NOTE PATIENT IN BED, RESTING, OBTUNDED. WITH SH 6 TRACH TO MECH VENT, TOLERATING VENT SETTINGS WELL, AC 12 TV 400 FIO2 30% PEEP 0. BREATHING EVEN AND UNLABORED. O2 SAT 100%. SR HR 94 ON MONITOR. NO SIGNS OF PAIN OR DISCOMFORT. MAURILIO PICC LINE FLUSHES WELL, CDI DRESSING. SITE CLEAR. JEVITY 1.2 RUNNING AT 70 ML/HR. GT CHECKED FOR PLACEMENT, 20 ML RESIDUAL, FLUSHED. PENALOZA CATH IN PLACE DRAINING YELLOW COLORED URINE, 600 ML OUTPUT. ON BILATERAL SOFT WRIST RESTRAINT, REMOVED AND CHECKED FOR PULSE AND CIRCULATION. THEN EVERY 2 HOURS.PERFORMED PRESCRIBED WOUND TREATMENT AND SKIN CARE ORDERED. TURNED AND REPOSITIONED Q 2 HOURS. ALL SAFETY MEASURES IN PLACE: BED IN LOWEST, LOCKED POSITION, SIDE RAILS UP X 2, CALL LIGHT WITHIN EASY REACH. ALL NEED MET AT THIS TIME. WILL ENDORSE TO NEXT SHIFT FOR NITIN.
[2022-12-03 20:00] VITALS: BP 129/54
[2022-12-04] VITALS: BP 148/61
[2022-12-04 04:52] VITALS: BP 122/67
[2022-12-04] MEDS: BLOOD SUGAR DIAGNOSTIC 1 EACH STRIP IN SCH ×2 (05:32→12:05)
[2022-12-04] MEDS: IV NS 0.9% 250 ML IV PRN (05:34)
[2022-12-04] MEDS: INSULIN REGULAR, HUMAN 100 UNIT/ML 3 ML VIAL SQ PRN ×2 (05:34→13:19)
--- NOTE | 2022-12-04 06:40 | NUR ---
END OF SHIFT REPORT Patient in bed, Obtunded. On mechanical vent, setting per RT. Sinus rhythm in clinical research monitor HR 80. MAURILIO PICC line intact, flushes well. Gtube feeding at 70ml/hr, minimal gastric residual 10ml. Bld glucose monitored, given insulin per parameters. Turned and repositioned q2h. Wound care done, dressing changed this morning. Off load heels at all times. Mistry cath to drainage, adequate output. Had BM during the night. Afebrile. Plan for dc to subacute. Will endorse to oncoming RN.
[2022-12-04 06:57] LABS: BASOPHILS % (AUTO) 0.2 % (0.0-2.0); EOSINOPHILS % (AUTO) 2.2 % (0.0-6.0); HEMATOCRIT 28 % (39-51); LYMPHOCYTES # (AUTO) 1.1 K/uL (0.8-4.8); LYMPHOCYTES % (AUTO) 8.5 % (20.0-44.0); MEAN CORPUSCULAR HGB CONC 33 g/dl (31.0-36.0); MEAN CORPUSCULAR VOLUME 93 fL (80-96); MONOCYTES % (AUTO) 7.8 % (2.0-12.0); NEUTROPHILS # (AUTO) 10.4 K/uL (1.8-8.9); NEUTROPHILS % (AUTO) 81.3 % (43.0-81.0); PLATELET COUNT (AUTO) 492 K/uL (150-450); WHITE BLOOD COUNT (AUTO) 12.9 K/uL (4.3-11.0)
[2022-12-04 07:13] LABS: CALCIUM, SERUM 8.5 mg/dL (8.5-10.1); CARBON DIOXIDE 27 mmol/L (21-32); CHLORIDE 107 mmol/L (98-107); CREATININE 0.8 mg/dL (0.6-1.3); GLUCOSE 148 mg/dL (74-106); MAGNESIUM 2.1 mg/dL (1.8-2.4); PHOSPHORUS 3.6 mg/dL (2.5-4.9); POTASSIUM 4.3 mmol/L (3.5-5.1); SODIUM SERUM 141 mmol/L (136-145); UREA NITROGEN, BLOOD 29 mg/dL (7-18)
[2022-12-04 08:00] VITALS: BP 134/79
[2022-12-04] MEDS: PANTOPRAZOLE 40 MG/PACK PACK NG SCH (08:41)
[2022-12-04] MEDS: THERAHONEY GEL 1.5 OZ TUBE TP SCH (08:42)
[2022-12-04] MEDS: THIAMINE HCL 100 MG TABLET GT SCH (08:42)
[2022-12-04] MEDS: LEVETIRACETAM SOL (5 ML) 100 MG/ML UDC GT SCH (08:43)
--- NOTE | 2022-12-04 09:30 | NUR ---
RN NOTES DUE MEDS GIVEN
[2022-12-04 12:00] VITALS: BP 126/80
--- NOTE | 2022-12-04 13:12 | NUR ---
RN NOTES REPORT GIVEN TO SU WARNER AT FACILITY REAL PROPERTY EVALUATOR AT 1400
--- NOTE | 2022-12-04 15:20 | NUR ---
RN NOTES PATIENT DISCHARGED TO [facility] PER MD IN STABLE CONDITION. PROVIDED DC INSTRUCTION, MED RECON LIST AND HEALTH TEACHINGS.. PATIENT TO FOLLOW UP WITH PCP IN 1 WEEK OR PER FACILITY PROTOCOL. MAURILIO PICC LINE REMOVED. CATH TIP COMPLETE. PRESSURE X 15 MINUTES APPLIED. NO BLEEDING, DRESSING IN PLACE. GT IN PLACE, FLUSHESD AND CLAMPED. PM CARE AND PRESCRIBED WOUND TREATMENT DONE EARLIER. PENALOZA CATH IN PLACE. PHOTOS OF SKIN ISSUES TAKEN AND PLACED IN CHART. ALL BELONGINGS CHECKED AND RETURNED. ALL PAPERWORKS SIGNED. PICKED UP BY 2 AMBULANCE CREW AND R.T, WILL TRANSPORT PATIENT TO FACILITY VIA ACLS/AMBULANCE. REPORT GIVEN TO EBEN AT FACILITY EARLIER.
[2022-12-04 15:37] LABS: EOSINOPHILS % (MANUAL) 3 % (0-4); LYMPHOCYTES % (MANUAL) 10 % (16-48); METAMYELOCYTES % 1 % (0-0); MONOCYTES % (MANUAL) 4 % (0-11.0); NEUTROPHILS % (MANUAL) 82 (42-76)
== END 2022-12-04 15:32 | DRG 4 ==
LOC: ER 10:00 → TELE 13:16 → ICU 11-11 04:24 → TELE1 11-20 10:13
PROVIDERS: ADMIT Student in an Organized Health Care Education/Training Program; ATTEND Student in an Organized Health Care Education/Training Program
PROC: 5A1955Z Respiratory Ventilation, Greater than 96 Consecutive Hours (ICD-10-PCS; principal; 2022-11-11)
PROC: 0BH17EZ Insertion of Endotracheal Airway into Trachea, Via Natural or Artificial Opening (ICD-10-PCS; 2022-11-11)
PROC: 02HV33Z Insertion of Infusion Device into Superior Vena Cava, Percutaneous Approach (ICD-10-PCS; 2022-11-11)
PROC: B548ZZA Ultrasonography of Superior Vena Cava, Guidance (ICD-10-PCS; 2022-11-11)
PROC: 5A2204Z Restoration of Cardiac Rhythm, Single (ICD-10-PCS; 2022-11-11)
PROC: 0B113F4 Bypass Trachea to Cutaneous with Tracheostomy Device, Percutaneous Approach (ICD-10-PCS; 2022-11-19)
PROC: 0BJ18ZZ Inspection of Trachea, Via Natural or Artificial Opening Endoscopic (ICD-10-PCS; 2022-11-19)
PROC: 0DH63UZ Insertion of Feeding Device into Stomach, Percutaneous Approach (ICD-10-PCS; 2022-11-28)
PROC: 30233N1 Transfusion of Nonautologous Red Blood Cells into Peripheral Vein, Percutaneous Approach (ICD-10-PCS; 2022-11-29)
DX: J15.6 Pneumonia due to other Gram-negative bacteria (principal); J96.01 Acute respiratory failure with hypoxia; N17.0 Acute kidney failure with tubular necrosis; R57.0 Cardiogenic shock; I46.9 Cardiac arrest, cause unspecified; E43 Unspecified severe protein-calorie malnutrition; E87.1 Hypo-osmolality and hyponatremia; F01.53 Vascular dementia, unspecified severity, with mood disturbance; E87.20 Acidosis, unspecified; G93.1 Anoxic brain damage, not elsewhere classified; E87.0 Hyperosmolality and hypernatremia; R64 Cachexia; Z68.1 Body mass index [BMI] 19.9 or less, adult; E86.0 Dehydration; R62.7 Adult failure to thrive; R56.9 Unspecified convulsions; Z20.822 Contact with and (suspected) exposure to COVID-19; R74.01 Elevation of levels of liver transaminase levels; E16.2 Hypoglycemia, unspecified; E88.09 Other disorders of plasma-protein metabolism, not elsewhere classified; F43.10 Post-traumatic stress disorder, unspecified; Z72.0 Tobacco use; L89.156 Pressure-induced deep tissue damage of sacral region; D63.8 Anemia in other chronic diseases classified elsewhere; E87.5 Hyperkalemia; D69.6 Thrombocytopenia, unspecified; I70.0 Atherosclerosis of aorta; R13.10 Dysphagia, unspecified; Y95 Nosocomial condition
CPT/HCPCS: 31720; 36415; 36569; 36600; 43246; 70450-TC; 71045-TC; 76770-TC; 80048-TC; 80053-TC; 80076-TC; 82140-TC; 82607-TC; 82728-TC; 82803-TC; 82962-TC; 83540-TC; 83605-TC; 83735-TC; 84100-TC; 84443-TC; 84484-TC; 85025-TC; 85730-TC; 86803; 86850-TC; 87040-TC; 87081-TC; 87806; 92950-TC; 93307-TC; 94002-TC; 94003-TC; 94760-TC; 94762-TC; 94799-TC; 95819-TC; 99082-TC; A4223; A4349; A4623; A6403; A7526; C1769; C9803; G0378; J0171; J0282; J0330; J0360; J0696; J1650; J1815; J1953; J2060; J2185; J2270; J2370; J2704; J2916; J2920; J3411; J3490; J7030; J7040; J7050; J7060; P9016

== ENCOUNTER 2023-05-08 14:42 | Inpatient (IN) | payer MEDICARE, OTHER ==
[~2023-05-08] VITALS: Ht 167.6 cm; Wt 43.1 kg
[2023-05-08] MEDS ORDERED: ARGI1POW13 GT (15:31)
[2023-05-08] MEDS ORDERED: BACL5TAB GT (15:31)
[2023-05-08] MEDS ORDERED: MAG30ORA GT (15:31)
[2023-05-08] MEDS ORDERED: DIABETISOURCE AC GT (15:31)
[2023-05-08] MEDS ORDERED: COLL30OI TP (15:31)
[2023-05-08] MEDS ORDERED: LEVE100S GT (15:31)
[2023-05-08] MEDS ORDERED: MAGN400O6 GT (15:31)
[2023-05-08] MEDS ORDERED: SODI473S9 TP (15:31)
[2023-05-08] MEDS ORDERED: ASCO500L2 GT (15:31)
[2023-05-08] MEDS ORDERED: OMEP20TA5 GT (15:31)
[2023-05-08] MEDS ORDERED: FERR220S2 GT (15:31)
[2023-05-08] MEDS ORDERED: AMIN30LI2 GT (15:31)
[2023-05-08] MEDS ORDERED: CHLO473M5 MM (15:31)
[2023-05-08] MEDS ORDERED: INSU100V28 SQ (15:31)
[2023-05-08] MEDS ORDERED: CRAN425C6 GT (15:31)
[2023-05-08] MEDS ORDERED: ALBU8.5H8 IH (15:31)
[2023-05-08] MEDS ORDERED: THIA100T68 GT (15:31)
[2023-05-08] MEDS ORDERED: ACET-868 GT ×2 (15:31)
[2023-05-08] MEDS ORDERED: ACET-2605 GT (15:31)
[2023-05-08 15:32] LABS: BASOPHILS % (AUTO) 0.2 % (0.0-2.0); EOSINOPHILS # (AUTO) 2.8 K/uL (0.0-0.7); EOSINOPHILS % (AUTO) 15.9 % (0.0-6.0); HEMATOCRIT 22 % (39-51); LYMPHOCYTES # (AUTO) 1.8 K/uL (0.8-4.8); LYMPHOCYTES % (AUTO) 10.3 % (20.0-44.0); MEAN CORPUSCULAR HEMOGLOBIN 27 PG (26.0-33.0); MEAN CORPUSCULAR HGB CONC 32 g/dl (31.0-36.0); MEAN CORPUSCULAR VOLUME 84 fL (80-96); MONOCYTES # (AUTO) 1.5 K/uL (0.1-1.30); MONOCYTES % (AUTO) 8.3 % (2.0-12.0); NEUTROPHILS # (AUTO) 11.6 K/uL (1.8-8.9); NEUTROPHILS % (AUTO) 65.3 % (43.0-81.0); PLATELET COUNT (AUTO) 429 K/uL (150-450); RED BLOOD CELL COUNT(AUTO) 2.62 MIL/uL (4.5-6.0); RED CELL DISTRIBUTION WIDTH 20.7 % (11.5-15.0); WHITE BLOOD COUNT (AUTO) 17.8 K/uL (4.3-11.0)
[2023-05-08 15:46] LABS: INR 1.13 (0.91-1.10); PARTIAL THROMBOPLASTIN TIME 29.1 SEC (24.3-34.3); PROTHROMBIN TIME 11.9 SECS (9.2-11.1)
[2023-05-08 16:13] LABS: ABG BASE EXCESS 9.7 mmol/L; ABG OXYGEN SATURATION 96.2 % (92.0-98.5); ABG PCO2 46.3 mmHg (35.0-45.0); ABG PH 7.485 (7.350-7.450); ABG PO2 83.4 mmHg (75.0-100.0); ABG TOTAL HEMOGLOBIN 7.5 G/dL (13.5-18.0); COHb 0.3 % (0.5-1.5); MetHb 0.3 % (0.0-1.5); O2Hb 95.6 % (94.0-97.0); SITE, ABG Left Radial; VENT MODE, BG AC 12 400 30% +5
[2023-05-08 18:00] VITALS: BP 110/73; TEMP 98.9; O2SAT 100
[2023-05-08 18:10] LABS: BILIRUBIN,DIRECT 0.1 mg/dL (0.0-0.2); BILIRUBIN,TOTAL 0.2 mg/dL (0.2-1.0); CALCIUM, SERUM 9.2 mg/dL (8.5-10.1); CREATININE 0.9 mg/dL (0.6-1.3); POTASSIUM 3.7 mmol/L (3.5-5.1)
[2023-05-08] MEDS ORDERED: HYDROCODONE/APAP 5/325MG TABLET GT PRN (19:30)
[2023-05-08] MEDS ORDERED: MAG HYDROX/AL HYDROX/SIMETH 30 ML UDC GT PRN (19:30)
[2023-05-08] MEDS ORDERED: MAGNESIUM HYDROXIDE 30 ML UDC GT PRN (19:30)
[2023-05-08] MEDS ORDERED: MAG HYDROX/AL HYDROX/SIMETH 30 ML UDC PO PRN (19:30)
[2023-05-08] MEDS ORDERED: MAGNESIUM HYDROXIDE 30 ML UDC PO PRN (19:30)
[2023-05-08] MEDS ORDERED: Z GUARD REMEDY 4 OZ OINT TP PRN (19:30)
[2023-05-08] MEDS ORDERED: ONDANSETRON HCL/PF 4 MG/2 ML VIAL IVP PRN (19:30)
[2023-05-08] MEDS ORDERED: GLUCERNA 1.2 1,000 ML BOTTLE NG PRN (19:30)
[2023-05-08] MEDS ORDERED: DEXTROSE 50%-WATER 50 ML DISP.SYRIN IV PRN (19:30)
[2023-05-08] MEDS ORDERED: ACETAMINOPHEN 325 MG TABLET PO PRN (19:30)
[2023-05-08] MEDS: ALBUTEROL FS 2.5 MG/3 ML VIAL.NEB NEB SCH (19:51)
[2023-05-08 20:00] VITALS: BP 125/61; TEMP 97.5; O2SAT 100
[2023-05-08 20:55] VITALS: BP 125/61; TEMP 97.5
[2023-05-08] MEDS: CHLORHEXIDINE GLUCONATE 15 ML UDC MM SCH (21:08)
[2023-05-08 21:10] VITALS: BP 132/73; TEMP 97.5
[2023-05-08 22:00] VITALS: BP 132/68; TEMP 97.7
[2023-05-08 23:40] VITALS: BP 135/71; TEMP 97.9
[2023-05-08] MEDS: LEVETIRACETAM SOL (5 ML) 100 MG/ML UDC GT SCH (23:40)
[2023-05-08] MEDS: BLOOD SUGAR DIAGNOSTIC 1 EACH STRIP IN SCH (23:50)
[2023-05-09] VITALS: BP 135/71; TEMP 97.9; O2SAT 100
[2023-05-09] MEDS: ALBUTEROL FS 2.5 MG/3 ML VIAL.NEB NEB SCH ×4 (01:19→20:25)
[2023-05-09 02:18] LABS: APPEARANCE,URINE TURBID (CLEAR); BILIRUBIN,URINE NEGATIVE (NEGATIVE); BLOOD, URINE 1+ Ery/uL (NEGATIVE); COLOR,URINE YELLOW (YELLOW); KETONES,URINE NEGATIVE (NEGATIVE); LEUKOCYTE ESTERASE ,URINE 2+ (NEGATIVE); NITRITE, URINE NEGATIVE (NEGATIVE); PROTEIN,URINE 2+ mg/dl (NEGATIVE); UGLUCOSE NEGATIVE (NEGATIVE)
[2023-05-09 02:20] LABS: ADD URINE CULTURE YES; BACTERIA,URINE Few /HPF (None Seen); PH,URINE >9.0 (5.0-8.0)
[2023-05-09 02:21] LABS: SQUAMOUS EPITHELIAL CELL,UR Moderate /HPF (None Seen)
[2023-05-09 04:00] VITALS: BP 150/76; TEMP 97.5; O2SAT 98
[2023-05-09] MEDS: BLOOD SUGAR DIAGNOSTIC 1 EACH STRIP IN SCH ×4 (05:08→23:21)
[2023-05-09 07:05] LABS: BASOPHILS % (AUTO) 0.1 % (0.0-2.0); EOSINOPHILS # (AUTO) 2.5 K/uL (0.0-0.7); EOSINOPHILS % (AUTO) 17.7 % (0.0-6.0); HEMATOCRIT 30 % (39-51); HEMOGLOBIN 9.4 g/dL (13.5-17.5); LYMPHOCYTES # (AUTO) 1.1 K/uL (0.8-4.8); LYMPHOCYTES % (AUTO) 8.1 % (20.0-44.0); MEAN CORPUSCULAR HEMOGLOBIN 26 PG (26.0-33.0); MEAN CORPUSCULAR HGB CONC 32 g/dl (31.0-36.0); MEAN CORPUSCULAR VOLUME 81 fL (80-96); MONOCYTES % (AUTO) 7.3 % (2.0-12.0); NEUTROPHILS # (AUTO) 9.4 K/uL (1.8-8.9); NEUTROPHILS % (AUTO) 66.8 % (43.0-81.0); PLATELET COUNT (AUTO) 402 K/uL (150-450); RED BLOOD CELL COUNT(AUTO) 3.64 MIL/uL (4.5-6.0); RED CELL DISTRIBUTION WIDTH 20.7 % (11.5-15.0); WHITE BLOOD COUNT (AUTO) 14.1 K/uL (4.3-11.0)
[2023-05-09 07:20] LABS: CALCIUM, SERUM 9.3 mg/dL (8.5-10.1); CREATININE 0.8 mg/dL (0.6-1.3); MAGNESIUM 2.6 mg/dL (1.8-2.4); PHOSPHORUS 4.6 mg/dL (2.5-4.9); POTASSIUM 3.8 mmol/L (3.5-5.1)
[2023-05-09] MEDS: PANTOPRAZOLE 40 MG/PACK PACK GT SCH (07:52)
[2023-05-09 08:00] VITALS: BP 140/88; TEMP 98.2; O2SAT 97
[2023-05-09] MEDS: CHLORHEXIDINE GLUCONATE 15 ML UDC MM SCH ×2 (09:25→21:10)
[2023-05-09] MEDS: LEVETIRACETAM SOL (5 ML) 100 MG/ML UDC GT SCH ×2 (09:25→21:10)
[2023-05-09] MEDS: THIAMINE HCL 100 MG TABLET GT SCH (09:25)
[2023-05-09] MEDS: FERROUS SULFATE (325 MG) 325 MG/TAB TABLET GT SCH ×2 (09:25→17:49)
[2023-05-09] MEDS: BACLOFEN (10 MG) 10 MG TABLET GT SCH ×3 (09:25→17:49)
[2023-05-09] MEDS: DAKINS FULL STRENGTH (0.5%) 480 ML BOTTLE TOP SCH (09:26)
[2023-05-09] MEDS: THERAHONEY GEL 1.5 OZ TUBE TP SCH (09:27)
[2023-05-09] MEDS: ARGININE/GLUTAMINE/CALCIUM BMB 1 EACH POWD.PACK GT SCH ×2 (09:29→17:49)
[2023-05-09] MEDS: PROSOURCE / PROSTAT (PYXIS) 30 ML UDC GT SCH ×3 (09:29→17:49)
[2023-05-09] MEDS ORDERED: THERAHONEY GEL 1.5 OZ TUBE TP SCH (11:00)
[2023-05-09 12:00] VITALS: BP 133/71; TEMP 98.4; O2SAT 97
[2023-05-09] MEDS: GLUCERNA 1.2 1,000 ML BOTTLE NG PRN (12:39)
[2023-05-09 13:51] LABS: IRON, SERUM 28 ug/dl (50-175); TOTAL IRON BINDING CAPACITY 178 ug/dl (250-450)
[2023-05-09 16:00] VITALS: BP 101/64; TEMP 99; O2SAT 97
[2023-05-09 21:00] VITALS: BP 116/68; TEMP 100; O2SAT 98
[2023-05-09 21:31] LABS: OCCULT BLOOD STOOL NEGATIVE (NEGATIVE)
[2023-05-09] MEDS: ACETAMINOPHEN 650 MG/20.3 ML UDC GT PRN (22:00)
[2023-05-09] MEDS: INSULIN REGULAR, HUMAN 100 UNIT/ML 3 ML VIAL SQ PRN (23:21)
[2023-05-10] VITALS: BP 145/86; TEMP 98.8; O2SAT 99
[2023-05-10] MEDS: ALBUTEROL FS 2.5 MG/3 ML VIAL.NEB NEB SCH ×4 (01:41→20:10)
[2023-05-10 04:00] VITALS: BP 148/81; TEMP 98.2; O2SAT 100
[2023-05-10] MEDS: BLOOD SUGAR DIAGNOSTIC 1 EACH STRIP IN SCH ×3 (06:02→17:00)
[2023-05-10 07:20] LABS: BASOPHILS % (AUTO) 0.2 % (0.0-2.0); EOSINOPHILS # (AUTO) 2.5 K/uL (0.0-0.7); EOSINOPHILS % (AUTO) 13.7 % (0.0-6.0); HEMATOCRIT 29 % (39-51); HEMOGLOBIN 9.2 g/dL (13.5-17.5); LYMPHOCYTES # (AUTO) 1.4 K/uL (0.8-4.8); LYMPHOCYTES % (AUTO) 7.8 % (20.0-44.0); MEAN CORPUSCULAR HEMOGLOBIN 26 PG (26.0-33.0); MEAN CORPUSCULAR HGB CONC 32 g/dl (31.0-36.0); MEAN CORPUSCULAR VOLUME 82 fL (80-96); MONOCYTES # (AUTO) 1.5 K/uL (0.1-1.30); MONOCYTES % (AUTO) 8.6 % (2.0-12.0); NEUTROPHILS # (AUTO) 12.6 K/uL (1.8-8.9); NEUTROPHILS % (AUTO) 69.7 % (43.0-81.0); PLATELET COUNT (AUTO) 481 K/uL (150-450); RED BLOOD CELL COUNT(AUTO) 3.48 MIL/uL (4.5-6.0); WHITE BLOOD COUNT (AUTO) 18.1 K/uL (4.3-11.0)
[2023-05-10 07:38] LABS: ALANINE AMINOTRANSFERASE 20 U/L (12-78); ALBUMIN 1.9 g/dL (3.4-5.0); ALKALINE PHOSPHATASE 86 U/L (46-116); ASPARTATE AMINOTRANSFERASE 25 U/L (15-37); BILIRUBIN,TOTAL 0.3 mg/dL (0.2-1.0); CALCIUM, SERUM 9.4 mg/dL (8.5-10.1); CARBON DIOXIDE 32 mmol/L (21-32); CHLORIDE 100 mmol/L (98-107); GLUCOSE 125 mg/dL (74-106); MAGNESIUM 2.6 mg/dL (1.8-2.4); PHOSPHORUS 4.8 mg/dL (2.5-4.9); POTASSIUM 3.8 mmol/L (3.5-5.1); SODIUM SERUM 141 mmol/L (136-145); TOTAL PROTEIN, SERUM 8.8 g/dL (6.4-8.2); UREA NITROGEN, BLOOD 52 mg/dL (7-18)
[2023-05-10] MEDS: PROSOURCE / PROSTAT (PYXIS) 30 ML UDC GT SCH ×3 (08:31→16:37)
[2023-05-10] MEDS: PANTOPRAZOLE 40 MG/PACK PACK GT SCH (08:31)
[2023-05-10] MEDS: FERROUS SULFATE (325 MG) 325 MG/TAB TABLET GT SCH ×2 (09:19→16:37)
[2023-05-10] MEDS: LEVETIRACETAM SOL (5 ML) 100 MG/ML UDC GT SCH ×2 (09:19→21:39)
[2023-05-10] MEDS: THIAMINE HCL 100 MG TABLET GT SCH (09:19)
[2023-05-10] MEDS: CHLORHEXIDINE GLUCONATE 15 ML UDC MM SCH ×2 (09:19→21:39)
[2023-05-10] MEDS: BACLOFEN (10 MG) 10 MG TABLET GT SCH ×3 (09:20→16:37)
[2023-05-10] MEDS: DAKINS FULL STRENGTH (0.5%) 480 ML BOTTLE TOP SCH (09:48)
[2023-05-10] MEDS: THERAHONEY GEL 1.5 OZ TUBE TP SCH ×2 (09:49→21:40)
[2023-05-10] MEDS: ARGININE/GLUTAMINE/CALCIUM BMB 1 EACH POWD.PACK GT SCH ×2 (10:21→16:37)
[2023-05-10 10:24] VITALS: BP 147/88; TEMP 98.2; O2SAT 100
[2023-05-10 13:04] VITALS: BP 140/87; TEMP 98.6; O2SAT 100
[2023-05-10] MEDS ORDERED: CEFTRIAXONE 1 G in IV D5W 50 ML IV SCH (13:30)
[2023-05-10 16:21] VITALS: BP 143/79; TEMP 98; O2SAT 100
[2023-05-10 17:26] LABS: APPEARANCE,URINE CLOUDY (CLEAR); BILIRUBIN,URINE NEGATIVE (NEGATIVE); BLOOD, URINE 1+ Ery/uL (NEGATIVE); COLOR,URINE YELLOW (YELLOW); KETONES,URINE NEGATIVE (NEGATIVE); LEUKOCYTE ESTERASE ,URINE 3+ (NEGATIVE); NITRITE, URINE NEGATIVE (NEGATIVE); PROTEIN,URINE 2+ mg/dl (NEGATIVE); UGLUCOSE NEGATIVE (NEGATIVE)
[2023-05-10 17:40] LABS: CREATININE, URINE 43.2 MG/DL (30.0-125.0); URINE TOTAL PROTEIN 99.2 mg/dL (0-11.9)
[2023-05-10] MEDS: GLUCERNA 1.2 1,000 ML BOTTLE NG PRN (17:52)
[2023-05-10 18:10] LABS: ADD URINE CULTURE YES; BACTERIA,URINE 3+ /HPF (None Seen); WBC,URINE 81-100 /HPF (0-3)
[2023-05-10 18:11] LABS: SQUAMOUS EPITHELIAL CELL,UR 0-2 /HPF (None Seen); TRIPLE PHOSPHATE CRYSTAL,UR Moderate /HPF (None Seen)
[2023-05-10 19:48] LABS: EOSINOPHIL,URINE None Seen
[2023-05-10 20:00] VITALS: BP 143/79; TEMP 98.4; O2SAT 100
[2023-05-10] MEDS ORDERED: VANCOMYCIN 1 GM in IV D5W 250ml IV ONE (21:00)
[2023-05-10] MEDS: MEROPENEM 500 MG in IV NS 0.9% 50 ML IV SCH (21:38)
[2023-05-11] VITALS: BP 125/76; TEMP 97.5; O2SAT 100
[2023-05-11] MEDS: INSULIN REGULAR, HUMAN 100 UNIT/ML 3 ML VIAL SQ PRN ×2 (00:44→06:04)
[2023-05-11] MEDS: ALBUTEROL FS 2.5 MG/3 ML VIAL.NEB NEB SCH ×4 (02:05→20:05)
[2023-05-11] MEDS: BLOOD SUGAR DIAGNOSTIC 1 EACH STRIP IN SCH ×4 (03:36→17:19)
[2023-05-11 04:00] VITALS: BP 121/67; TEMP 98.3; O2SAT 100
[2023-05-11 06:13] LABS: BASOPHILS % (AUTO) 0.1 % (0.0-2.0); EOSINOPHILS % (AUTO) 21.2 % (0.0-6.0); HEMATOCRIT 28 % (39-51); HEMOGLOBIN 8.7 g/dL (13.5-17.5); LYMPHOCYTES # (AUTO) 1.3 K/uL (0.8-4.8); LYMPHOCYTES % (AUTO) 6.7 % (20.0-44.0); MEAN CORPUSCULAR HEMOGLOBIN 26 PG (26.0-33.0); MEAN CORPUSCULAR HGB CONC 32 g/dl (31.0-36.0); MEAN CORPUSCULAR VOLUME 82 fL (80-96); MONOCYTES # (AUTO) 1.6 K/uL (0.1-1.30); MONOCYTES % (AUTO) 8.3 % (2.0-12.0); NEUTROPHILS # (AUTO) 12.1 K/uL (1.8-8.9); NEUTROPHILS % (AUTO) 63.7 % (43.0-81.0); PLATELET COUNT (AUTO) 496 K/uL (150-450); RED BLOOD CELL COUNT(AUTO) 3.36 MIL/uL (4.5-6.0); RED CELL DISTRIBUTION WIDTH 19.8 % (11.5-15.0)
[2023-05-11 06:37] LABS: ALANINE AMINOTRANSFERASE 20 U/L (12-78); ALBUMIN 1.8 g/dL (3.4-5.0); ALKALINE PHOSPHATASE 98 U/L (46-116); ASPARTATE AMINOTRANSFERASE 21 U/L (15-37); BILIRUBIN,TOTAL 0.2 mg/dL (0.2-1.0); CALCIUM, SERUM 9.4 mg/dL (8.5-10.1); CARBON DIOXIDE 35 mmol/L (21-32); CHLORIDE 102 mmol/L (98-107); GLUCOSE 130 mg/dL (74-106); MAGNESIUM 2.3 mg/dL (1.8-2.4); PHOSPHORUS 4.3 mg/dL (2.5-4.9); POTASSIUM 4.1 mmol/L (3.5-5.1); SODIUM SERUM 144 mmol/L (136-145); TOTAL PROTEIN, SERUM 8.4 g/dL (6.4-8.2); UREA NITROGEN, BLOOD 50 mg/dL (7-18)
[2023-05-11 08:00] VITALS: BP 121/67; TEMP 98.3; O2SAT 100
[2023-05-11] MEDS: PANTOPRAZOLE 40 MG/PACK PACK GT SCH (08:37)
[2023-05-11] MEDS: PROSOURCE / PROSTAT (PYXIS) 30 ML UDC GT SCH ×3 (08:37→17:06)
[2023-05-11] MEDS: BACLOFEN (10 MG) 10 MG TABLET GT SCH ×3 (08:38→17:07)
[2023-05-11] MEDS: FERROUS SULFATE (325 MG) 325 MG/TAB TABLET GT SCH ×2 (08:38→17:05)
[2023-05-11] MEDS: LEVETIRACETAM SOL (5 ML) 100 MG/ML UDC GT SCH ×2 (08:38→20:54)
[2023-05-11] MEDS: THIAMINE HCL 100 MG TABLET GT SCH (08:38)
[2023-05-11] MEDS: ARGININE/GLUTAMINE/CALCIUM BMB 1 EACH POWD.PACK GT SCH ×2 (08:39→17:07)
[2023-05-11] MEDS: VANCOMYCIN 500 MG in IV D5W 100ml IV SCH ×2 (08:41→20:56)
[2023-05-11] MEDS: MEROPENEM 500 MG in IV NS 0.9% 50 ML IV SCH ×2 (08:41→20:57)
[2023-05-11] MEDS: DAKINS FULL STRENGTH (0.5%) 480 ML BOTTLE TOP SCH (08:48)
[2023-05-11] MEDS: THERAHONEY GEL 1.5 OZ TUBE TP SCH ×3 (08:49→21:00)
[2023-05-11] MEDS: CHLORHEXIDINE GLUCONATE 15 ML UDC MM SCH ×2 (08:49→20:55)
[2023-05-11 14:18] VITALS: BP 118/71; TEMP 98.3; O2SAT 100
[2023-05-11 16:20] VITALS: BP 196/71; TEMP 98.3; O2SAT 100
[2023-05-11] MEDS: GLUCERNA 1.2 1,000 ML BOTTLE NG PRN (17:19)
[2023-05-11 20:00] VITALS: BP 125/76; TEMP 97.5; O2SAT 100
[2023-05-12] VITALS: BP 125/76; TEMP 97.5; O2SAT 100
[2023-05-12] MEDS: BLOOD SUGAR DIAGNOSTIC 1 EACH STRIP IN SCH ×4 (00:01→17:22)
[2023-05-12] MEDS: INSULIN REGULAR, HUMAN 100 UNIT/ML 3 ML VIAL SQ PRN ×3 (00:14→12:07)
[2023-05-12] MEDS: ALBUTEROL FS 2.5 MG/3 ML VIAL.NEB NEB SCH ×4 (02:23→20:03)
[2023-05-12 04:00] VITALS: BP 118/74; TEMP 98.8; O2SAT 100
[2023-05-12 06:28] LABS: BASOPHILS % (AUTO) 0.2 % (0.0-2.0); EOSINOPHILS % (AUTO) 15.7 % (0.0-6.0); HEMATOCRIT 29 % (39-51); LYMPHOCYTES # (AUTO) 2.3 K/uL (0.8-4.8); LYMPHOCYTES % (AUTO) 12.1 % (20.0-44.0); MEAN CORPUSCULAR HEMOGLOBIN 26 PG (26.0-33.0); MEAN CORPUSCULAR HGB CONC 31 g/dl (31.0-36.0); MEAN CORPUSCULAR VOLUME 83 fL (80-96); MONOCYTES # (AUTO) 1.5 K/uL (0.1-1.30); MONOCYTES % (AUTO) 7.7 % (2.0-12.0); NEUTROPHILS # (AUTO) 12.4 K/uL (1.8-8.9); NEUTROPHILS % (AUTO) 64.3 % (43.0-81.0); PLATELET COUNT (AUTO) 544 K/uL (150-450); RED BLOOD CELL COUNT(AUTO) 3.49 MIL/uL (4.5-6.0); RED CELL DISTRIBUTION WIDTH 19.8 % (11.5-15.0); WHITE BLOOD COUNT (AUTO) 19.3 K/uL (4.3-11.0)
[2023-05-12 06:53] LABS: ALBUMIN 1.9 g/dL (3.4-5.0); BILIRUBIN,TOTAL 0.3 mg/dL (0.2-1.0); CALCIUM, SERUM 9.4 mg/dL (8.5-10.1); CREATININE 1.1 mg/dL (0.6-1.3); MAGNESIUM 2.5 mg/dL (1.8-2.4); PHOSPHORUS 4.6 mg/dL (2.5-4.9); POTASSIUM 4.2 mmol/L (3.5-5.1); TOTAL PROTEIN, SERUM 8.6 g/dL (6.4-8.2)
[2023-05-12 08:00] VITALS: BP 150/64; TEMP 98.8; O2SAT 98
[2023-05-12] MEDS: PANTOPRAZOLE 40 MG/PACK PACK GT SCH (08:22)
[2023-05-12] MEDS: PROSOURCE / PROSTAT (PYXIS) 30 ML UDC GT SCH ×3 (08:22→16:25)
[2023-05-12] MEDS: VANCOMYCIN 500 MG in IV D5W 100ml IV SCH (09:00)
[2023-05-12] MEDS: CHLORHEXIDINE GLUCONATE 15 ML UDC MM SCH ×2 (09:09→21:40)
[2023-05-12] MEDS: THIAMINE HCL 100 MG TABLET GT SCH (09:09)
[2023-05-12] MEDS: LEVETIRACETAM SOL (5 ML) 100 MG/ML UDC GT SCH ×2 (09:09→21:40)
[2023-05-12] MEDS: DAKINS FULL STRENGTH (0.5%) 480 ML BOTTLE TOP SCH (09:10)
[2023-05-12] MEDS: MEROPENEM 500 MG in IV NS 0.9% 50 ML IV SCH ×2 (09:10→21:39)
[2023-05-12] MEDS: FERROUS SULFATE (325 MG) 325 MG/TAB TABLET GT SCH ×2 (09:10→16:37)
[2023-05-12] MEDS: BACLOFEN (10 MG) 10 MG TABLET GT SCH ×3 (09:10→16:38)
[2023-05-12] MEDS: THERAHONEY GEL 1.5 OZ TUBE TP SCH ×3 (09:11→21:41)
[2023-05-12] MEDS: ARGININE/GLUTAMINE/CALCIUM BMB 1 EACH POWD.PACK GT SCH ×2 (09:12→16:37)
[2023-05-12 12:00] VITALS: BP 104/61; TEMP 98.4; O2SAT 98
[2023-05-12 16:00] VITALS: BP 127/71; TEMP 97.3; O2SAT 98
[2023-05-12] MEDS: GLUCERNA 1.2 1,000 ML BOTTLE NG PRN (19:31)
[2023-05-12 20:00] VITALS: BP 154/67; TEMP 98.2; O2SAT 99
[2023-05-13] VITALS: BP 147/76; TEMP 97.7; O2SAT 100
[2023-05-13] MEDS: ALBUTEROL FS 2.5 MG/3 ML VIAL.NEB NEB SCH ×4 (01:53→19:51)
[2023-05-13 04:00] VITALS: BP 127/62; TEMP 98.2; O2SAT 99
[2023-05-13] MEDS: BLOOD SUGAR DIAGNOSTIC 1 EACH STRIP IN SCH ×4 (06:00→17:35)
[2023-05-13 07:08] LABS: ALANINE AMINOTRANSFERASE 23 U/L (12-78); ALBUMIN 1.9 g/dL (3.4-5.0); ALKALINE PHOSPHATASE 81 U/L (46-116); ASPARTATE AMINOTRANSFERASE 31 U/L (15-37); BILIRUBIN,TOTAL 0.2 mg/dL (0.2-1.0); CALCIUM, SERUM 9.8 mg/dL (8.5-10.1); CARBON DIOXIDE 33 mmol/L (21-32); CHLORIDE 109 mmol/L (98-107); GLUCOSE 125 mg/dL (74-106); MAGNESIUM 2.9 mg/dL (1.8-2.4); PHOSPHORUS 4.2 mg/dL (2.5-4.9); POTASSIUM 4.1 mmol/L (3.5-5.1); SODIUM SERUM 150 mmol/L (136-145); TOTAL PROTEIN, SERUM 9.3 g/dL (6.4-8.2); UREA NITROGEN, BLOOD 70 mg/dL (7-18)
[2023-05-13 07:31] LABS: BASOPHILS # (AUTO) 0.1 K/uL (0.0-0.2); BASOPHILS % (AUTO) 0.3 % (0.0-2.0); EOSINOPHILS # (AUTO) 2.7 K/uL (0.0-0.7); EOSINOPHILS % (AUTO) 13.6 % (0.0-6.0); HEMATOCRIT 30 % (39-51); HEMOGLOBIN 9.1 g/dL (13.5-17.5); LYMPHOCYTES # (AUTO) 1.3 K/uL (0.8-4.8); LYMPHOCYTES % (AUTO) 6.5 % (20.0-44.0); MEAN CORPUSCULAR HEMOGLOBIN 26 PG (26.0-33.0); MEAN CORPUSCULAR HGB CONC 31 g/dl (31.0-36.0); MEAN CORPUSCULAR VOLUME 85 fL (80-96); MONOCYTES # (AUTO) 1.3 K/uL (0.1-1.30); MONOCYTES % (AUTO) 6.8 % (2.0-12.0); NEUTROPHILS # (AUTO) 14.4 K/uL (1.8-8.9); NEUTROPHILS % (AUTO) 72.8 % (43.0-81.0); PLATELET COUNT (AUTO) 519 K/uL (150-450); RED BLOOD CELL COUNT(AUTO) 3.49 MIL/uL (4.5-6.0); RED CELL DISTRIBUTION WIDTH 20.3 % (11.5-15.0); WHITE BLOOD COUNT (AUTO) 19.7 K/uL (4.3-11.0)
[2023-05-13 08:00] VITALS: BP 145/68; TEMP 98.6; O2SAT 95
[2023-05-13] MEDS: MEROPENEM 500 MG in IV NS 0.9% 50 ML IV SCH (08:10)
[2023-05-13] MEDS: FERROUS SULFATE (325 MG) 325 MG/TAB TABLET GT SCH ×2 (09:17→16:34)
[2023-05-13] MEDS: BACLOFEN (10 MG) 10 MG TABLET GT SCH ×3 (09:17→16:33)
[2023-05-13] MEDS: CHLORHEXIDINE GLUCONATE 15 ML UDC MM SCH ×2 (09:17→21:59)
[2023-05-13] MEDS: PANTOPRAZOLE 40 MG/PACK PACK GT SCH (09:17)
[2023-05-13] MEDS: PROSOURCE / PROSTAT (PYXIS) 30 ML UDC GT SCH ×3 (09:17→16:34)
[2023-05-13] MEDS: LEVETIRACETAM SOL (5 ML) 100 MG/ML UDC GT SCH ×2 (09:17→22:00)
[2023-05-13] MEDS: THIAMINE HCL 100 MG TABLET GT SCH (09:17)
[2023-05-13] MEDS: DAKINS FULL STRENGTH (0.5%) 480 ML BOTTLE TOP SCH (09:18)
[2023-05-13] MEDS: ARGININE/GLUTAMINE/CALCIUM BMB 1 EACH POWD.PACK GT SCH ×2 (09:18→16:33)
[2023-05-13] MEDS: VANCOMYCIN HCL 0.75 GM in IV D5W 250 ML IV SCH (09:18)
[2023-05-13] MEDS: THERAHONEY GEL 1.5 OZ TUBE TP SCH ×3 (09:19→22:02)
[2023-05-13] MEDS: INSULIN REGULAR, HUMAN 100 UNIT/ML 3 ML VIAL SQ PRN (11:46)
[2023-05-13 12:00] VITALS: BP 124/68; TEMP 98.5; O2SAT 95
[2023-05-13 16:00] VITALS: BP 127/74; TEMP 98.8; O2SAT 95
[2023-05-13] MEDS: GLUCERNA 1.2 1,000 ML BOTTLE NG PRN (16:52)
[2023-05-13 20:00] VITALS: BP 106/65; TEMP 97.9; O2SAT 95
[2023-05-13] MEDS: MEROPENEM 500 MG in IV NS 0.9% 100 ML IV SCH (22:05)
[2023-05-14] VITALS (7 sets, daily range): BP systolic 90–128; BP diastolic 50–96; TEMP 97.5–101.3; O2SAT 95–100
[2023-05-14] MEDS: BLOOD SUGAR DIAGNOSTIC 1 EACH STRIP IN SCH ×4 (00:05→17:35)
[2023-05-14] MEDS: INSULIN REGULAR, HUMAN 100 UNIT/ML 3 ML VIAL SQ PRN ×3 (00:24→11:25)
[2023-05-14] MEDS: ALBUTEROL FS 2.5 MG/3 ML VIAL.NEB NEB SCH ×4 (02:32→20:14)
[2023-05-14] MEDS: ACETAMINOPHEN 650 MG/20.3 ML UDC GT PRN ×2 (03:24→08:17)
[2023-05-14] MEDS: LORAZEPAM INJ 2 MG/ML VIAL IV PRN ×4 (03:47→18:24)
[2023-05-14 07:28] LABS: BASOPHILS % (AUTO) 0.1 % (0.0-2.0); EOSINOPHILS # (AUTO) 1.2 K/uL (0.0-0.7); EOSINOPHILS % (AUTO) 6.5 % (0.0-6.0); HEMATOCRIT 30 % (39-51); HEMOGLOBIN 9.3 g/dL (13.5-17.5); LYMPHOCYTES # (AUTO) 1.3 K/uL (0.8-4.8); LYMPHOCYTES % (AUTO) 7.4 % (20.0-44.0); MEAN CORPUSCULAR HEMOGLOBIN 26 PG (26.0-33.0); MEAN CORPUSCULAR HGB CONC 31 g/dl (31.0-36.0); MEAN CORPUSCULAR VOLUME 85 fL (80-96); MONOCYTES # (AUTO) 1.1 K/uL (0.1-1.30); MONOCYTES % (AUTO) 5.9 % (2.0-12.0); NEUTROPHILS # (AUTO) 14.3 K/uL (1.8-8.9); NEUTROPHILS % (AUTO) 80.1 % (43.0-81.0); PLATELET COUNT (AUTO) 634 K/uL (150-450); RED BLOOD CELL COUNT(AUTO) 3.58 MIL/uL (4.5-6.0); RED CELL DISTRIBUTION WIDTH 20.5 % (11.5-15.0); WHITE BLOOD COUNT (AUTO) 17.8 K/uL (4.3-11.0)
[2023-05-14 07:36] LABS: BILIRUBIN,TOTAL 0.3 mg/dL (0.2-1.0); CALCIUM, SERUM 9.9 mg/dL (8.5-10.1); CREATININE 1.2 mg/dL (0.6-1.3); PHOSPHORUS 4.6 mg/dL (2.5-4.9); POTASSIUM 3.8 mmol/L (3.5-5.1); TOTAL PROTEIN, SERUM 9.3 g/dL (6.4-8.2)
[2023-05-14] MEDS: PANTOPRAZOLE 40 MG/PACK PACK GT SCH (07:43)
[2023-05-14] MEDS: PROSOURCE / PROSTAT (PYXIS) 30 ML UDC GT SCH ×3 (07:43→17:35)
[2023-05-14] MEDS: FERROUS SULFATE (325 MG) 325 MG/TAB TABLET GT SCH ×2 (08:15→17:39)
[2023-05-14] MEDS: THIAMINE HCL 100 MG TABLET GT SCH (08:15)
[2023-05-14] MEDS: LEVETIRACETAM SOL (5 ML) 100 MG/ML UDC GT SCH (08:16)
[2023-05-14] MEDS: BACLOFEN (10 MG) 10 MG TABLET GT SCH ×3 (08:16→17:39)
[2023-05-14] MEDS: CHLORHEXIDINE GLUCONATE 15 ML UDC MM SCH ×2 (08:16→21:42)
[2023-05-14] MEDS: MEROPENEM 500 MG in IV NS 0.9% 100 ML IV SCH ×2 (08:17→20:37)
[2023-05-14] MEDS: ARGININE/GLUTAMINE/CALCIUM BMB 1 EACH POWD.PACK GT SCH ×2 (08:38→17:35)
[2023-05-14] MEDS: THERAHONEY GEL 1.5 OZ TUBE TP SCH ×4 (08:38→22:18)
[2023-05-14] MEDS: DAKINS FULL STRENGTH (0.5%) 480 ML BOTTLE TOP SCH (08:46)
[2023-05-14 09:16] LABS: ANISOCYTOSIS 1+; PLATELET ESTIMATE H
[2023-05-14] MEDS: VANCOMYCIN HCL 0.75 GM in IV D5W 250 ML IV SCH (09:43)
[2023-05-14 10:01] LABS: ABG BASE EXCESS 10.9 mmol/L; ABG OXYGEN SATURATION 98.4 % (92.0-98.5); ABG PCO2 22.7 mmHg (35.0-45.0); ABG PH 7.739 (7.350-7.450); ABG PO2 106.6 mmHg (75.0-100.0); ABG TOTAL HEMOGLOBIN 9.9 G/dL (13.5-18.0); AaDO2 80.6 mmHg; COHb 0.3 % (0.5-1.5); MetHb 0.3 % (0.0-1.5); O2Hb 97.8 % (94.0-97.0); SITE, ABG Right Radial
[2023-05-14] MEDS: LEVETIRACETAM (500MG) 1,000 MG in IV NS 0.9% 90 ML IV SCH ×2 (11:50→23:23)
[2023-05-14] MEDS: GLUCERNA 1.2 1,000 ML BOTTLE NG PRN (13:11)
[2023-05-14 18:01] LABS: THYROID STIMULATING HORMONE 0.538 uIU/mL (0.358-3.74)
[2023-05-15] VITALS (7 sets, daily range): BP systolic 97–138; BP diastolic 55–95; TEMP 97.5–98.9; O2SAT 95–100
[2023-05-15] MEDS: BLOOD SUGAR DIAGNOSTIC 1 EACH STRIP IN SCH ×4 (00:55→17:32)
[2023-05-15] MEDS: ALBUTEROL FS 2.5 MG/3 ML VIAL.NEB NEB SCH ×4 (01:30→19:45)
[2023-05-15] MEDS: INSULIN REGULAR, HUMAN 100 UNIT/ML 3 ML VIAL SQ PRN ×2 (01:38→06:11)
[2023-05-15] MEDS: LORAZEPAM INJ 2 MG/ML VIAL IV PRN ×2 (03:44→15:59)
[2023-05-15] MEDS: GLUCERNA 1.2 1,000 ML BOTTLE NG PRN (05:52)
[2023-05-15 07:14] LABS: CALCIUM, SERUM 9.1 mg/dL (8.5-10.1); PHOSPHORUS 5.6 mg/dL (2.5-4.9); POTASSIUM 3.3 mmol/L (3.5-5.1)
[2023-05-15 07:31] LABS: BASOPHILS % (AUTO) 0.3 % (0.0-2.0); EOSINOPHILS # (AUTO) 1.8 K/uL (0.0-0.7); EOSINOPHILS % (AUTO) 10.4 % (0.0-6.0); HEMATOCRIT 32 % (39-51); HEMOGLOBIN 9.4 g/dL (13.5-17.5); LYMPHOCYTES # (AUTO) 1.4 K/uL (0.8-4.8); LYMPHOCYTES % (AUTO) 8.5 % (20.0-44.0); MEAN CORPUSCULAR HEMOGLOBIN 26 PG (26.0-33.0); MEAN CORPUSCULAR HGB CONC 30 g/dl (31.0-36.0); MEAN CORPUSCULAR VOLUME 88 fL (80-96); MONOCYTES # (AUTO) 1.2 K/uL (0.1-1.30); MONOCYTES % (AUTO) 6.9 % (2.0-12.0); NEUTROPHILS # (AUTO) 12.5 K/uL (1.8-8.9); NEUTROPHILS % (AUTO) 73.9 % (43.0-81.0); PLATELET COUNT (AUTO) 532 K/uL (150-450); RED CELL DISTRIBUTION WIDTH 21.2 % (11.5-15.0); WHITE BLOOD COUNT (AUTO) 16.9 K/uL (4.3-11.0)
[2023-05-15] MEDS: PANTOPRAZOLE 40 MG/PACK PACK GT SCH (07:58)
[2023-05-15] MEDS: PROSOURCE / PROSTAT (PYXIS) 30 ML UDC GT SCH ×3 (08:01→17:46)
[2023-05-15] MEDS: ARGININE/GLUTAMINE/CALCIUM BMB 1 EACH POWD.PACK GT SCH ×2 (08:01→17:46)
[2023-05-15] MEDS: CHLORHEXIDINE GLUCONATE 15 ML UDC MM SCH ×2 (08:02→21:20)
[2023-05-15] MEDS: FERROUS SULFATE (325 MG) 325 MG/TAB TABLET GT SCH ×2 (08:02→17:46)
[2023-05-15] MEDS: MEROPENEM 500 MG in IV NS 0.9% 100 ML IV SCH ×2 (08:02→21:21)
[2023-05-15] MEDS: THIAMINE HCL 100 MG TABLET GT SCH (08:02)
[2023-05-15] MEDS: BACLOFEN (10 MG) 10 MG TABLET GT SCH ×3 (08:02→17:46)
[2023-05-15] MEDS: DAKINS FULL STRENGTH (0.5%) 480 ML BOTTLE TOP SCH (08:58)
[2023-05-15] MEDS: THERAHONEY GEL 1.5 OZ TUBE TP SCH ×2 (08:59→21:25)
[2023-05-15] MEDS: ASPIRIN 81 MG TAB.CHEW PEG SCH ×2 (09:00→09:04)
[2023-05-15] MEDS: VANCOMYCIN HCL 0.75 GM in IV D5W 250 ML IV SCH (09:04)
[2023-05-15] MEDS ORDERED: POTASSIUM CHLORIDE 20 MEQ POWDER PACKET NG SCH (10:00)
[2023-05-15] MEDS: LEVETIRACETAM (500MG) 1,000 MG in IV NS 0.9% 90 ML IV SCH ×2 (11:46→23:52)
[2023-05-15] MEDS: ACETAMINOPHEN 650 MG/20.3 ML UDC GT PRN (18:06)
[2023-05-16] VITALS (7 sets, daily range): BP systolic 95–125; BP diastolic 55–83; TEMP 98.2–100.4; O2SAT 100
[2023-05-16] MEDS: BLOOD SUGAR DIAGNOSTIC 1 EACH STRIP IN SCH ×5 (00:15→23:40)
[2023-05-16] MEDS: ALBUTEROL FS 2.5 MG/3 ML VIAL.NEB NEB SCH ×4 (01:58→20:08)
[2023-05-16] MEDS: GLUCERNA 1.2 1,000 ML BOTTLE NG PRN (05:59)
[2023-05-16 06:30] LABS: BASOPHILS # (AUTO) 0.1 K/uL (0.0-0.2); BASOPHILS % (AUTO) 0.2 % (0.0-2.0); EOSINOPHILS # (AUTO) 2.3 K/uL (0.0-0.7); EOSINOPHILS % (AUTO) 10.4 % (0.0-6.0); HEMATOCRIT 26 % (39-51); HEMOGLOBIN 8.3 g/dL (13.5-17.5); LYMPHOCYTES # (AUTO) 1.8 K/uL (0.8-4.8); LYMPHOCYTES % (AUTO) 8.2 % (20.0-44.0); MEAN CORPUSCULAR HEMOGLOBIN 27 PG (26.0-33.0); MEAN CORPUSCULAR HGB CONC 32 g/dl (31.0-36.0); MEAN CORPUSCULAR VOLUME 85 fL (80-96); MONOCYTES # (AUTO) 1.6 K/uL (0.1-1.30); MONOCYTES % (AUTO) 7.2 % (2.0-12.0); NEUTROPHILS # (AUTO) 16.2 K/uL (1.8-8.9); PLATELET COUNT (AUTO) 543 K/uL (150-450); RED BLOOD CELL COUNT(AUTO) 3.07 MIL/uL (4.5-6.0); RED CELL DISTRIBUTION WIDTH 20.2 % (11.5-15.0); WHITE BLOOD COUNT (AUTO) 21.9 K/uL (4.3-11.0)
[2023-05-16 06:51] LABS: CALCIUM, SERUM 9.6 mg/dL (8.5-10.1); CREATININE 1.3 mg/dL (0.6-1.3); MAGNESIUM 3.1 mg/dL (1.8-2.4); PHOSPHORUS 4.4 mg/dL (2.5-4.9); POTASSIUM 4.3 mmol/L (3.5-5.1)
[2023-05-16] MEDS: PANTOPRAZOLE 40 MG/PACK PACK GT SCH (07:53)
[2023-05-16] MEDS: PROSOURCE / PROSTAT (PYXIS) 30 ML UDC GT SCH ×3 (08:01→17:21)
[2023-05-16] MEDS: VANCOMYCIN HCL 0.75 GM in IV D5W 250 ML IV SCH (09:17)
[2023-05-16] MEDS: LORAZEPAM INJ 2 MG/ML VIAL IV PRN ×2 (09:21→17:21)
[2023-05-16] MEDS: THIAMINE HCL 100 MG TABLET GT SCH (09:38)
[2023-05-16] MEDS: CHLORHEXIDINE GLUCONATE 15 ML UDC MM SCH ×2 (09:38→22:32)
[2023-05-16] MEDS: BACLOFEN (10 MG) 10 MG TABLET GT SCH ×3 (09:38→17:21)
[2023-05-16] MEDS: ARGININE/GLUTAMINE/CALCIUM BMB 1 EACH POWD.PACK GT SCH ×2 (09:38→17:21)
[2023-05-16] MEDS: FERROUS SULFATE (325 MG) 325 MG/TAB TABLET GT SCH ×2 (09:38→17:21)
[2023-05-16] MEDS: ASPIRIN 81 MG TAB.CHEW PEG SCH (09:38)
[2023-05-16] MEDS: MEROPENEM 500 MG in IV NS 0.9% 100 ML IV SCH ×2 (11:09→20:06)
[2023-05-16] MEDS: DAKINS FULL STRENGTH (0.5%) 480 ML BOTTLE TOP SCH (11:22)
[2023-05-16] MEDS: THERAHONEY GEL 1.5 OZ TUBE TP SCH ×3 (11:23→20:05)
[2023-05-16] MEDS: LEVETIRACETAM (500MG) 1,000 MG in IV NS 0.9% 90 ML IV SCH ×2 (11:53→23:14)
[2023-05-16] MEDS: IV D5W 1,000 ML IV PRN (12:07)
[2023-05-16] MEDS: VANCOMYCIN 500 MG in IV D5W 100ml IV SCH (20:04)
[2023-05-16] MEDS: ACETAMINOPHEN 650 MG/20.3 ML UDC GT PRN (21:33)
[2023-05-16] MEDS: INSULIN REGULAR, HUMAN 100 UNIT/ML 3 ML VIAL SQ PRN (23:39)
[2023-05-17] VITALS (7 sets, daily range): BP systolic 92–134; BP diastolic 40–84; TEMP 97.6–100.6; O2SAT 100
[2023-05-17] MEDS: ALBUTEROL FS 2.5 MG/3 ML VIAL.NEB NEB SCH ×4 (01:46→20:14)
[2023-05-17] MEDS: INSULIN REGULAR, HUMAN 100 UNIT/ML 3 ML VIAL SQ PRN ×3 (05:39→23:14)
[2023-05-17] MEDS: BLOOD SUGAR DIAGNOSTIC 1 EACH STRIP IN SCH ×4 (05:41→23:11)
[2023-05-17 05:59] LABS: BASOPHILS % (AUTO) 0.1 % (0.0-2.0); EOSINOPHILS # (AUTO) 1.8 K/uL (0.0-0.7); EOSINOPHILS % (AUTO) 8.2 % (0.0-6.0); HEMATOCRIT 25 % (39-51); HEMOGLOBIN 7.5 g/dL (13.5-17.5); LYMPHOCYTES # (AUTO) 1.6 K/uL (0.8-4.8); MEAN CORPUSCULAR HEMOGLOBIN 26 PG (26.0-33.0); MEAN CORPUSCULAR HGB CONC 31 g/dl (31.0-36.0); MEAN CORPUSCULAR VOLUME 86 fL (80-96); MONOCYTES # (AUTO) 1.3 K/uL (0.1-1.30); MONOCYTES % (AUTO) 5.6 % (2.0-12.0); NEUTROPHILS # (AUTO) 17.9 K/uL (1.8-8.9); NEUTROPHILS % (AUTO) 79.1 % (43.0-81.0); PLATELET COUNT (AUTO) 417 K/uL (150-450); RED BLOOD CELL COUNT(AUTO) 2.89 MIL/uL (4.5-6.0); RED CELL DISTRIBUTION WIDTH 20.6 % (11.5-15.0); WHITE BLOOD COUNT (AUTO) 22.6 K/uL (4.3-11.0)
[2023-05-17 06:19] LABS: CALCIUM, SERUM 8.2 mg/dL (8.5-10.1); CREATININE 1.2 mg/dL (0.6-1.3); MAGNESIUM 2.7 mg/dL (1.8-2.4); PHOSPHORUS 4.5 mg/dL (2.5-4.9); POTASSIUM 3.6 mmol/L (3.5-5.1)
[2023-05-17] MEDS: ARGININE/GLUTAMINE/CALCIUM BMB 1 EACH POWD.PACK GT SCH ×2 (08:10→16:59)
[2023-05-17] MEDS: BACLOFEN (10 MG) 10 MG TABLET GT SCH ×3 (08:11→17:00)
[2023-05-17] MEDS: THIAMINE HCL 100 MG TABLET GT SCH (08:11)
[2023-05-17] MEDS: PROSOURCE / PROSTAT (PYXIS) 30 ML UDC GT SCH ×3 (08:11→16:59)
[2023-05-17] MEDS: FERROUS SULFATE (325 MG) 325 MG/TAB TABLET GT SCH ×2 (08:11→17:00)
[2023-05-17] MEDS: ASPIRIN 81 MG TAB.CHEW PEG SCH (08:11)
[2023-05-17] MEDS: PANTOPRAZOLE 40 MG/PACK PACK GT SCH (08:11)
[2023-05-17] MEDS: CHLORHEXIDINE GLUCONATE 15 ML UDC MM SCH ×2 (08:11→21:07)
[2023-05-17] MEDS: MEROPENEM 500 MG in IV NS 0.9% 100 ML IV SCH ×2 (08:15→21:48)
[2023-05-17] MEDS: DAKINS FULL STRENGTH (0.5%) 480 ML BOTTLE TOP SCH (08:16)
[2023-05-17] MEDS: THERAHONEY GEL 1.5 OZ TUBE TP SCH ×3 (08:16→21:08)
[2023-05-17 12:17] LABS: EOSINOPHILS % (MANUAL) 7 % (0-4); LYMPHOCYTES % (MANUAL) 8 % (16-48); MONOCYTES % (MANUAL) 2 % (0-11.0); NEUTROPHILS % (MANUAL) 83 (42-76); PLATELET ESTIMATE ADEQUATE
[2023-05-17 12:18] LABS: ANISOCYTOSIS 2+; HYPOCHROMASIA 1+
[2023-05-17] MEDS: ACETAMINOPHEN 650 MG/20.3 ML UDC GT PRN (12:40)
[2023-05-17] MEDS: GLUCERNA 1.2 1,000 ML BOTTLE NG PRN (12:41)
[2023-05-17] MEDS: IV D5W 1,000 ML IV PRN (13:10)
[2023-05-17] MEDS ORDERED: phenytoin SODIUM IV 1,000 MG in IV NS 0.9% 100 ML IV ONE (15:30)
[2023-05-17] MEDS ORDERED: phenytoin SODIUM IV 500 MG in IV NS 0.9% 50 ML IV ONE (16:00)
[2023-05-17] MEDS: VANCOMYCIN 500 MG in IV D5W 100ml IV SCH (20:34)
[2023-05-17] MEDS: LEVETIRACETAM (500MG) 750 MG in IV NS 0.9% 100 ML IV SCH (20:57)
[2023-05-18] VITALS (14 sets, daily range): BP systolic 96–162; BP diastolic 44–129; TEMP 98–99; O2SAT 96–100
[2023-05-18] MEDS: ALBUTEROL FS 2.5 MG/3 ML VIAL.NEB NEB SCH ×4 (00:39→20:21)
[2023-05-18] MEDS ORDERED: PHENYTOIN SODIUM IV 100 MG/2ML VIAL IV SCH (04:00)
[2023-05-18] MEDS: INSULIN REGULAR, HUMAN 100 UNIT/ML 3 ML VIAL SQ PRN ×2 (05:22→23:34)
[2023-05-18] MEDS: BLOOD SUGAR DIAGNOSTIC 1 EACH STRIP IN SCH ×4 (05:22→23:32)
[2023-05-18 07:09] LABS: CALCIUM, SERUM 8.7 mg/dL (8.5-10.1); CARBON DIOXIDE 31 mmol/L (21-32); CHLORIDE 113 mmol/L (98-107); CREATININE 1.1 mg/dL (0.6-1.3); GLUCOSE 148 mg/dL (74-106); MAGNESIUM 2.8 mg/dL (1.8-2.4); PHOSPHORUS 3.3 mg/dL (2.5-4.9); POTASSIUM 3.9 mmol/L (3.5-5.1); SODIUM SERUM 149 mmol/L (136-145)
[2023-05-18 07:11] LABS: UREA NITROGEN, BLOOD 106 mg/dL (7-18)
[2023-05-18 07:27] LABS: BASOPHILS % (AUTO) 0.1 % (0.0-2.0); EOSINOPHILS # (AUTO) 2.2 K/uL (0.0-0.7); EOSINOPHILS % (AUTO) 10.7 % (0.0-6.0); HEMATOCRIT 22 % (39-51); LYMPHOCYTES # (AUTO) 1.1 K/uL (0.8-4.8); LYMPHOCYTES % (AUTO) 5.4 % (20.0-44.0); MEAN CORPUSCULAR HEMOGLOBIN 26 PG (26.0-33.0); MEAN CORPUSCULAR HGB CONC 30 g/dl (31.0-36.0); MEAN CORPUSCULAR VOLUME 86 fL (80-96); MONOCYTES % (AUTO) 4.9 % (2.0-12.0); NEUTROPHILS # (AUTO) 16.4 K/uL (1.8-8.9); NEUTROPHILS % (AUTO) 78.9 % (43.0-81.0); PLATELET COUNT (AUTO) 373 K/uL (150-450); RED BLOOD CELL COUNT(AUTO) 2.58 MIL/uL (4.5-6.0); WHITE BLOOD COUNT (AUTO) 20.7 K/uL (4.3-11.0)
[2023-05-18 07:28] LABS: HEMOGLOBIN 6.7 g/dL (13.5-17.5)
[2023-05-18] MEDS: PANTOPRAZOLE 40 MG/PACK PACK GT SCH (07:50)
[2023-05-18] MEDS: PROSOURCE / PROSTAT (PYXIS) 30 ML UDC GT SCH ×3 (07:52→16:31)
[2023-05-18] MEDS: LEVETIRACETAM (500MG) 750 MG in IV NS 0.9% 100 ML IV SCH ×2 (08:45→20:43)
[2023-05-18] MEDS ORDERED: LACOSAMIDE 200 MG in IV NS 0.9% 100 ML IV ONE (09:00)
[2023-05-18] MEDS: DAKINS FULL STRENGTH (0.5%) 480 ML BOTTLE TOP SCH (09:33)
[2023-05-18] MEDS: ARGININE/GLUTAMINE/CALCIUM BMB 1 EACH POWD.PACK GT SCH ×2 (09:33→16:31)
[2023-05-18] MEDS: THERAHONEY GEL 1.5 OZ TUBE TP SCH ×3 (09:33→20:38)
[2023-05-18] MEDS: IV D5W 1,000 ML IV PRN (09:47)
[2023-05-18] MEDS: BACLOFEN (10 MG) 10 MG TABLET GT SCH ×3 (09:50→16:41)
[2023-05-18] MEDS: FERROUS SULFATE (325 MG) 325 MG/TAB TABLET GT SCH ×2 (09:50→16:41)
[2023-05-18] MEDS: ASPIRIN 81 MG TAB.CHEW PEG SCH (09:50)
[2023-05-18] MEDS: THIAMINE HCL 100 MG TABLET GT SCH (09:51)
[2023-05-18] MEDS: CHLORHEXIDINE GLUCONATE 15 ML UDC MM SCH ×2 (09:51→20:38)
[2023-05-18] MEDS: MEROPENEM 500 MG in IV NS 0.9% 100 ML IV SCH (09:51)
[2023-05-18] MEDS: GLUCERNA 1.2 1,000 ML BOTTLE NG PRN (10:06)
[2023-05-18 11:29] LABS: EOSINOPHILS % (MANUAL) 12 % (0-4); LYMPHOCYTES % (MANUAL) 5 % (16-48); MONOCYTES % (MANUAL) 1 % (0-11.0); NEUTROPHILS % (MANUAL) 82 (42-76)
[2023-05-18 11:33] LABS: ANISOCYTOSIS 1+; PLATELET ESTIMATE ADEQUATE; STOMATOCYTES 2+
[2023-05-18] MEDS: PHENYTOIN SODIUM IV 100 MG/2ML VIAL IV SCH ×2 (12:06→20:41)
[2023-05-18] MEDS: LACOSAMIDE 100 MG in IV NS 0.9% 50 ML IV SCH (19:36)
[2023-05-18] MEDS: METRONIDAZOLE 500 MG TABLET PO SCH (21:08)
[2023-05-18] MEDS: VANCOMYCIN 500 MG in IV D5W 100ml IV SCH (21:45)
[2023-05-18] MEDS ORDERED: CEFEPIME 1 GM VIAL ONE (22:11)
[2023-05-18] MEDS: CEFEPIME 1 GM in IV D5W 50 ML IV SCH (22:18)
[2023-05-19] VITALS (7 sets, daily range): BP systolic 97–133; BP diastolic 53–111; TEMP 97.9–99; O2SAT 97–100
[2023-05-19] MEDS: ALBUTEROL FS 2.5 MG/3 ML VIAL.NEB NEB SCH ×4 (02:00→20:14)
[2023-05-19] MEDS: METRONIDAZOLE 500 MG TABLET PO SCH ×3 (04:16→20:32)
[2023-05-19] MEDS: PHENYTOIN SODIUM IV 100 MG/2ML VIAL IV SCH ×3 (04:17→20:30)
[2023-05-19] MEDS: INSULIN REGULAR, HUMAN 100 UNIT/ML 3 ML VIAL SQ PRN (05:48)
[2023-05-19] MEDS: BLOOD SUGAR DIAGNOSTIC 1 EACH STRIP IN SCH ×3 (05:48→18:40)
[2023-05-19] MEDS: IV D5W 1,000 ML IV PRN (05:51)
[2023-05-19] MEDS: GLUCERNA 1.2 1,000 ML BOTTLE NG PRN (05:54)
[2023-05-19 06:26] LABS: BASOPHILS % (AUTO) 0.1 % (0.0-2.0); EOSINOPHILS # (AUTO) 2.4 K/uL (0.0-0.7); EOSINOPHILS % (AUTO) 14.8 % (0.0-6.0); HEMATOCRIT 27 % (39-51); HEMOGLOBIN 8.7 g/dL (13.5-17.5); LYMPHOCYTES # (AUTO) 1.4 K/uL (0.8-4.8); LYMPHOCYTES % (AUTO) 8.8 % (20.0-44.0); MEAN CORPUSCULAR HEMOGLOBIN 27 PG (26.0-33.0); MEAN CORPUSCULAR HGB CONC 32 g/dl (31.0-36.0); MEAN CORPUSCULAR VOLUME 85 fL (80-96); MONOCYTES # (AUTO) 1.2 K/uL (0.1-1.30); MONOCYTES % (AUTO) 7.2 % (2.0-12.0); NEUTROPHILS # (AUTO) 11.2 K/uL (1.8-8.9); NEUTROPHILS % (AUTO) 69.1 % (43.0-81.0); PLATELET COUNT (AUTO) 338 K/uL (150-450); RED CELL DISTRIBUTION WIDTH 18.9 % (11.5-15.0); WHITE BLOOD COUNT (AUTO) 16.2 K/uL (4.3-11.0)
[2023-05-19 06:58] LABS: CALCIUM, SERUM 8.1 mg/dL (8.5-10.1); CARBON DIOXIDE 30 mmol/L (21-32); CHLORIDE 107 mmol/L (98-107); CREATININE 0.9 mg/dL (0.6-1.3); GLUCOSE 118 mg/dL (74-106); MAGNESIUM 2.6 mg/dL (1.8-2.4); PHOSPHORUS 3.3 mg/dL (2.5-4.9); POTASSIUM 4.1 mmol/L (3.5-5.1); SODIUM SERUM 141 mmol/L (136-145); UREA NITROGEN, BLOOD 69 mg/dL (7-18)
[2023-05-19] MEDS: PANTOPRAZOLE 40 MG/PACK PACK GT SCH (07:32)
[2023-05-19] MEDS: PROSOURCE / PROSTAT (PYXIS) 30 ML UDC GT SCH ×3 (07:58→16:21)
[2023-05-19] MEDS: CHLORHEXIDINE GLUCONATE 15 ML UDC MM SCH ×2 (08:10→20:30)
[2023-05-19] MEDS: ARGININE/GLUTAMINE/CALCIUM BMB 1 EACH POWD.PACK GT SCH ×2 (08:10→16:21)
[2023-05-19] MEDS: BACLOFEN (10 MG) 10 MG TABLET GT SCH ×3 (08:10→16:34)
[2023-05-19] MEDS: THIAMINE HCL 100 MG TABLET GT SCH (08:10)
[2023-05-19] MEDS: ASPIRIN 81 MG TAB.CHEW PEG SCH (08:10)
[2023-05-19] MEDS: FERROUS SULFATE (325 MG) 325 MG/TAB TABLET GT SCH ×2 (08:10→16:34)
[2023-05-19] MEDS: THERAHONEY GEL 1.5 OZ TUBE TP SCH ×3 (08:11→20:41)
[2023-05-19] MEDS: DAKINS FULL STRENGTH (0.5%) 480 ML BOTTLE TOP SCH (08:11)
[2023-05-19] MEDS: LACOSAMIDE 100 MG in IV NS 0.9% 50 ML IV SCH ×2 (08:41→19:21)
[2023-05-19] MEDS: LEVETIRACETAM (500MG) 750 MG in IV NS 0.9% 100 ML IV SCH ×2 (09:58→20:32)
[2023-05-19] MEDS: CEFEPIME 1 GM in IV D5W 50 ML IV SCH ×2 (10:40→21:59)
[2023-05-20] VITALS: BP 123/57; TEMP 99; O2SAT 98
[2023-05-20] MEDS: BLOOD SUGAR DIAGNOSTIC 1 EACH STRIP IN SCH ×6 (00:13→23:30)
[2023-05-20] MEDS: INSULIN REGULAR, HUMAN 100 UNIT/ML 3 ML VIAL SQ PRN ×4 (00:17→23:31)
[2023-05-20] MEDS: ALBUTEROL FS 2.5 MG/3 ML VIAL.NEB NEB SCH ×4 (01:47→20:16)
[2023-05-20] MEDS: GLUCERNA 1.2 1,000 ML BOTTLE NG PRN (03:35)
[2023-05-20 04:00] VITALS: BP 102/58; TEMP 98.6; O2SAT 98
[2023-05-20] MEDS: METRONIDAZOLE 500 MG TABLET PO SCH (04:16)
[2023-05-20] MEDS: PHENYTOIN SODIUM IV 100 MG/2ML VIAL IV SCH ×3 (04:16→21:20)
[2023-05-20 05:53] LABS: BASOPHILS % (AUTO) 0.1 % (0.0-2.0); HEMATOCRIT 28 % (39-51); HEMOGLOBIN 8.9 g/dL (13.5-17.5); LYMPHOCYTES % (AUTO) 6.2 % (20.0-44.0); MEAN CORPUSCULAR HEMOGLOBIN 27 PG (26.0-33.0); MEAN CORPUSCULAR HGB CONC 32 g/dl (31.0-36.0); MEAN CORPUSCULAR VOLUME 85 fL (80-96); MONOCYTES # (AUTO) 0.9 K/uL (0.1-1.30); MONOCYTES % (AUTO) 6.1 % (2.0-12.0); NEUTROPHILS # (AUTO) 11.6 K/uL (1.8-8.9); NEUTROPHILS % (AUTO) 74.6 % (43.0-81.0); PLATELET COUNT (AUTO) 395 K/uL (150-450); RED BLOOD CELL COUNT(AUTO) 3.31 MIL/uL (4.5-6.0); RED CELL DISTRIBUTION WIDTH 19.4 % (11.5-15.0); WHITE BLOOD COUNT (AUTO) 15.6 K/uL (4.3-11.0)
[2023-05-20 06:18] LABS: CALCIUM, SERUM 8.2 mg/dL (8.5-10.1); MAGNESIUM 2.6 mg/dL (1.8-2.4); PHOSPHORUS 4.1 mg/dL (2.5-4.9); POTASSIUM 3.9 mmol/L (3.5-5.1)
[2023-05-20 08:00] VITALS: BP 119/62; TEMP 98.5; O2SAT 98
[2023-05-20] MEDS: FERROUS SULFATE (325 MG) 325 MG/TAB TABLET GT SCH ×2 (09:23→16:16)
[2023-05-20] MEDS: LACOSAMIDE 100 MG in IV NS 0.9% 50 ML IV SCH (09:23)
[2023-05-20] MEDS: BACLOFEN (10 MG) 10 MG TABLET GT SCH ×3 (09:23→16:16)
[2023-05-20] MEDS: ASPIRIN 81 MG TAB.CHEW PEG SCH (09:23)
[2023-05-20] MEDS: PANTOPRAZOLE 40 MG/PACK PACK GT SCH (09:23)
[2023-05-20] MEDS: THIAMINE HCL 100 MG TABLET GT SCH (09:23)
[2023-05-20] MEDS: PROSOURCE / PROSTAT (PYXIS) 30 ML UDC GT SCH ×3 (09:24→16:18)
[2023-05-20] MEDS: CHLORHEXIDINE GLUCONATE 15 ML UDC MM SCH ×2 (09:24→21:15)
[2023-05-20] MEDS: ARGININE/GLUTAMINE/CALCIUM BMB 1 EACH POWD.PACK GT SCH ×2 (09:24→16:17)
[2023-05-20] MEDS: DAKINS FULL STRENGTH (0.5%) 480 ML BOTTLE TOP SCH (09:25)
[2023-05-20] MEDS: THERAHONEY GEL 1.5 OZ TUBE TP SCH ×3 (09:25→21:20)
[2023-05-20] MEDS: LEVETIRACETAM (500MG) 750 MG in IV NS 0.9% 100 ML IV SCH ×2 (11:10→21:13)
[2023-05-20] MEDS: VANCOMYCIN 500 MG in IV D5W 100ml IV SCH (11:50)
[2023-05-20 12:00] VITALS: BP 119/62; TEMP 98.7; O2SAT 100
[2023-05-20] MEDS: METRONIDAZOLE 500 MG TABLET GT SCH ×2 (12:34→21:11)
[2023-05-20] MEDS: CEFEPIME 1 GM in IV D5W 50 ML IV SCH ×2 (13:10→21:57)
[2023-05-20 16:00] VITALS: BP 113/58; TEMP 98.8; O2SAT 99
[2023-05-20 19:35] LABS: HEMOGLOBIN 10.6 g/dL (13.5-17.5)
[2023-05-20 20:00] VITALS: BP 98/45; TEMP 97; O2SAT 96
[2023-05-20] MEDS: LACOSAMIDE 150 MG in IV NS 0.9% 50 ML IV SCH (20:25)
[2023-05-20] MEDS ORDERED: MEROPENEM 500 MG in IV NS 0.9% 50 ML IV SCH (22:00)
[2023-05-20] MEDS ORDERED: MEROPENEM 500MG/NS 50 ML PB IV ONE (22:35)
[2023-05-21] VITALS: BP 83/45; TEMP 97.6; O2SAT 84
[2023-05-21] MEDS: GLUCERNA 1.2 1,000 ML BOTTLE NG PRN (00:53)
[2023-05-21] MEDS: ALBUTEROL FS 2.5 MG/3 ML VIAL.NEB NEB SCH ×4 (01:50→20:18)
[2023-05-21 04:00] VITALS: BP 89/46; TEMP 97.9; O2SAT 97
[2023-05-21] MEDS: METRONIDAZOLE 500 MG TABLET GT SCH ×3 (05:34→21:11)
[2023-05-21] MEDS: BLOOD SUGAR DIAGNOSTIC 1 EACH STRIP IN SCH ×3 (05:50→17:05)
[2023-05-21 07:15] LABS: BASOPHILS % (AUTO) 0.2 % (0.0-2.0); EOSINOPHILS # (AUTO) 1.7 K/uL (0.0-0.7); EOSINOPHILS % (AUTO) 13.8 % (0.0-6.0); HEMATOCRIT 30 % (39-51); HEMOGLOBIN 9.3 g/dL (13.5-17.5); LYMPHOCYTES # (AUTO) 0.8 K/uL (0.8-4.8); LYMPHOCYTES % (AUTO) 6.4 % (20.0-44.0); MEAN CORPUSCULAR HEMOGLOBIN 27 PG (26.0-33.0); MEAN CORPUSCULAR HGB CONC 31 g/dl (31.0-36.0); MEAN CORPUSCULAR VOLUME 86 fL (80-96); MONOCYTES # (AUTO) 0.7 K/uL (0.1-1.30); NEUTROPHILS # (AUTO) 9.1 K/uL (1.8-8.9); NEUTROPHILS % (AUTO) 73.6 % (43.0-81.0); PLATELET COUNT (AUTO) 378 K/uL (150-450); RED BLOOD CELL COUNT(AUTO) 3.45 MIL/uL (4.5-6.0); WHITE BLOOD COUNT (AUTO) 12.4 K/uL (4.3-11.0)
[2023-05-21 07:30] LABS: CARBON DIOXIDE 26 mmol/L (21-32); CHLORIDE 106 mmol/L (98-107); CREATININE 1.3 mg/dL (0.6-1.3); GLUCOSE 149 mg/dL (74-106); MAGNESIUM 2.7 mg/dL (1.8-2.4); PHOSPHORUS 4.5 mg/dL (2.5-4.9); POTASSIUM 4.7 mmol/L (3.5-5.1); SODIUM SERUM 140 mmol/L (136-145)
[2023-05-21 07:39] LABS: UREA NITROGEN, BLOOD 82 mg/dL (7-18)
[2023-05-21 08:00] VITALS: BP 91/51; TEMP 98.2; O2SAT 98
[2023-05-21] MEDS: PANTOPRAZOLE 40 MG/PACK PACK GT SCH (08:16)
[2023-05-21] MEDS: THIAMINE HCL 100 MG TABLET GT SCH (08:16)
[2023-05-21] MEDS: FERROUS SULFATE (325 MG) 325 MG/TAB TABLET GT SCH ×2 (08:17→16:55)
[2023-05-21] MEDS: BACLOFEN (10 MG) 10 MG TABLET GT SCH ×3 (08:17→16:52)
[2023-05-21] MEDS: PHENYTOIN SODIUM IV 100 MG/2ML VIAL IV SCH ×2 (08:17→21:11)
[2023-05-21] MEDS: CHLORHEXIDINE GLUCONATE 15 ML UDC MM SCH ×2 (08:17→21:11)
[2023-05-21] MEDS: PROSOURCE / PROSTAT (PYXIS) 30 ML UDC GT SCH ×3 (08:20→15:10)
[2023-05-21] MEDS: ARGININE/GLUTAMINE/CALCIUM BMB 1 EACH POWD.PACK GT SCH ×2 (08:21→16:58)
[2023-05-21] MEDS: MEROPENEM 500 MG in IV NS 0.9% 100 ML IV SCH ×2 (08:22→20:40)
[2023-05-21] MEDS: DAKINS FULL STRENGTH (0.5%) 480 ML BOTTLE TOP SCH (08:24)
[2023-05-21] MEDS: THERAHONEY GEL 1.5 OZ TUBE TP SCH ×3 (08:24→21:12)
[2023-05-21] MEDS: LEVETIRACETAM (500MG) 750 MG in IV NS 0.9% 100 ML IV SCH ×2 (09:12→21:00)
[2023-05-21] MEDS ORDERED: MEROPENEM 500 MG in IV NS 0.9% 50 ML IV SCH (10:00)
[2023-05-21] MEDS: LACOSAMIDE 150 MG in IV NS 0.9% 50 ML IV SCH ×2 (10:00→21:12)
[2023-05-21 12:00] VITALS: BP 98/48; TEMP 97.9; O2SAT 95
[2023-05-21] MEDS ORDERED: GLUCERNA 1.2 1,000 ML BOTTLE NG PRN (12:00)
[2023-05-21] MEDS: NEPRO 1,000 ML BOTTLE GT PRN (15:10)
[2023-05-21 16:00] VITALS: BP 95/54; TEMP 98.1; O2SAT 97
[2023-05-21 20:00] VITALS: BP 96/51; TEMP 98.1; O2SAT 100
[2023-05-21] MEDS: VANCOMYCIN 500 MG in IV D5W 100ml IV SCH (20:40)
[2023-05-22] VITALS: BP_SYST 85; BP_SYST 97; BP_DIAS 49; BP_DIAS 64; TEMP 97.3; O2SAT 98
[2023-05-22] MEDS: BLOOD SUGAR DIAGNOSTIC 1 EACH STRIP IN SCH ×5 (00:09→23:04)
[2023-05-22] MEDS: INSULIN REGULAR, HUMAN 100 UNIT/ML 3 ML VIAL SQ PRN ×5 (00:12→23:06)
[2023-05-22] MEDS: ALBUTEROL FS 2.5 MG/3 ML VIAL.NEB NEB SCH ×4 (01:25→19:37)
[2023-05-22 04:00] VITALS: BP 97/51; TEMP 97; O2SAT 100
[2023-05-22] MEDS: METRONIDAZOLE 500 MG TABLET GT SCH ×3 (04:05→20:41)
[2023-05-22 08:00] VITALS: BP 94/55; TEMP 94.5; O2SAT 97
[2023-05-22 08:24] LABS: CALCIUM, SERUM 8.2 mg/dL (8.5-10.1); CARBON DIOXIDE 25 mmol/L (21-32); CHLORIDE 108 mmol/L (98-107); GLUCOSE 130 mg/dL (74-106); POTASSIUM 4.2 mmol/L (3.5-5.1); SODIUM SERUM 141 mmol/L (136-145); UREA NITROGEN, BLOOD 67 mg/dL (7-18)
[2023-05-22] MEDS: THIAMINE HCL 100 MG TABLET GT SCH (08:31)
[2023-05-22] MEDS: PANTOPRAZOLE 40 MG/PACK PACK GT SCH (08:31)
[2023-05-22] MEDS: MEROPENEM 500 MG in IV NS 0.9% 100 ML IV SCH ×3 (08:31→20:41)
[2023-05-22] MEDS: BACLOFEN (10 MG) 10 MG TABLET GT SCH ×3 (08:32→17:47)
[2023-05-22] MEDS: FERROUS SULFATE (325 MG) 325 MG/TAB TABLET GT SCH ×2 (08:32→17:47)
[2023-05-22] MEDS: PHENYTOIN SODIUM IV 100 MG/2ML VIAL IV SCH ×2 (08:32→20:41)
[2023-05-22] MEDS: CHLORHEXIDINE GLUCONATE 15 ML UDC MM SCH ×2 (08:35→20:41)
[2023-05-22] MEDS: ARGININE/GLUTAMINE/CALCIUM BMB 1 EACH POWD.PACK GT SCH ×2 (08:39→17:47)
[2023-05-22] MEDS: PROSOURCE / PROSTAT (PYXIS) 30 ML UDC GT SCH (08:40)
[2023-05-22] MEDS: LEVETIRACETAM (500MG) 750 MG in IV NS 0.9% 100 ML IV SCH ×2 (08:58→21:40)
[2023-05-22] MEDS: DAKINS FULL STRENGTH (0.5%) 480 ML BOTTLE TOP SCH (09:42)
[2023-05-22] MEDS: THERAHONEY GEL 1.5 OZ TUBE TP SCH ×3 (09:43→20:42)
[2023-05-22] MEDS: LACOSAMIDE 150 MG in IV NS 0.9% 50 ML IV SCH ×2 (10:46→21:41)
[2023-05-22 16:00] VITALS: BP 98/55; TEMP 97.5; O2SAT 98
[2023-05-22 20:00] VITALS: BP 124/63; TEMP 98.3; O2SAT 100
[2023-05-22] MEDS: NEPRO 1,000 ML BOTTLE GT PRN (20:47)
[2023-05-23] VITALS: BP 128/68; TEMP 98.3; O2SAT 100
[2023-05-23] MEDS: ALBUTEROL FS 2.5 MG/3 ML VIAL.NEB NEB SCH ×3 (01:41→13:41)
[2023-05-23 04:00] VITALS: BP 121/72; TEMP 98.4; O2SAT 100
[2023-05-23] MEDS: METRONIDAZOLE 500 MG TABLET GT SCH ×2 (04:15→12:33)
[2023-05-23] MEDS: BLOOD SUGAR DIAGNOSTIC 1 EACH STRIP IN SCH ×2 (05:48→11:33)
[2023-05-23] MEDS: INSULIN REGULAR, HUMAN 100 UNIT/ML 3 ML VIAL SQ PRN (05:56)
[2023-05-23] MEDS: PANTOPRAZOLE 40 MG/PACK PACK GT SCH (07:16)
[2023-05-23 07:38] LABS: CALCIUM, SERUM 8.6 mg/dL (8.5-10.1); CARBON DIOXIDE 26 mmol/L (21-32); CHLORIDE 109 mmol/L (98-107); GLUCOSE 137 mg/dL (74-106); POTASSIUM 3.9 mmol/L (3.5-5.1); SODIUM SERUM 141 mmol/L (136-145); UREA NITROGEN, BLOOD 67 mg/dL (7-18)
[2023-05-23 08:00] VITALS: BP 99/46; TEMP 98.2; O2SAT 98
[2023-05-23] MEDS: BACLOFEN (10 MG) 10 MG TABLET GT SCH ×2 (08:05→12:29)
[2023-05-23] MEDS: FERROUS SULFATE (325 MG) 325 MG/TAB TABLET GT SCH (08:05)
[2023-05-23] MEDS: CHLORHEXIDINE GLUCONATE 15 ML UDC MM SCH (08:05)
[2023-05-23] MEDS: PHENYTOIN SODIUM IV 100 MG/2ML VIAL IV SCH (08:06)
[2023-05-23] MEDS: THIAMINE HCL 100 MG TABLET GT SCH (08:06)
[2023-05-23] MEDS: DAKINS FULL STRENGTH (0.5%) 480 ML BOTTLE TOP SCH (08:15)
[2023-05-23] MEDS: PROSOURCE / PROSTAT (PYXIS) 30 ML UDC GT SCH (08:15)
[2023-05-23] MEDS: ARGININE/GLUTAMINE/CALCIUM BMB 1 EACH POWD.PACK GT SCH (08:15)
[2023-05-23] MEDS: THERAHONEY GEL 1.5 OZ TUBE TP SCH ×2 (08:16)
[2023-05-23] MEDS: MEROPENEM 500 MG in IV NS 0.9% 100 ML IV SCH (08:19)
[2023-05-23] MEDS: VANCOMYCIN 500 MG in IV D5W 100ml IV SCH (08:24)
[2023-05-23] MEDS: LEVETIRACETAM (500MG) 750 MG in IV NS 0.9% 100 ML IV SCH (09:16)
[2023-05-23] MEDS: LACOSAMIDE 150 MG in IV NS 0.9% 50 ML IV SCH (09:16)
[2023-05-23] MEDS ORDERED: LEVE750T4 PO (10:44)
[2023-05-23 12:00] VITALS: BP 103/54; TEMP 98.1; O2SAT 98
[2023-05-24] MEDS ORDERED: VANCOMYCIN HCL 0.75 GM in IV D5W 250 ML IV SCH (21:00)
== END 2023-05-23 16:40 | DRG 40 ==
LOC: ER 14:42 → TELE1 18:01
PROVIDERS: ATTEND Internal Medicine
PROC: 5A1955Z Respiratory Ventilation, Greater than 96 Consecutive Hours (ICD-10-PCS; principal; 2023-05-08)
PROC: 30233N1 Transfusion of Nonautologous Red Blood Cells into Peripheral Vein, Percutaneous Approach (ICD-10-PCS; 2023-05-08)
PROC: 0KBN0ZZ Excision of Right Hip Muscle, Open Approach (ICD-10-PCS; 2023-05-12)
PROC: 0KBP0ZZ Excision of Left Hip Muscle, Open Approach (ICD-10-PCS; 2023-05-12)
PROC: 0QB30ZZ Excision of Left Pelvic Bone, Open Approach (ICD-10-PCS; 2023-05-12)
PROC: 05H933Z Insertion of Infusion Device into Right Brachial Vein, Percutaneous Approach (ICD-10-PCS; 2023-05-16)
PROC: 0KBP0ZZ Excision of Left Hip Muscle, Open Approach (ICD-10-PCS; 2023-05-21)
PROC: 0KBN0ZZ Excision of Right Hip Muscle, Open Approach (ICD-10-PCS; 2023-05-21)
PROC: 0QB30ZZ Excision of Left Pelvic Bone, Open Approach (ICD-10-PCS; 2023-05-21)
PROC: 0KBS0ZZ Excision of Right Lower Leg Muscle, Open Approach (ICD-10-PCS; 2023-05-22)
DX: G40.409 Other generalized epilepsy and epileptic syndromes, not intractable, without status epilepticus (principal); I63.9 Cerebral infarction, unspecified; L89.154 Pressure ulcer of sacral region, stage 4; R53.2 Functional quadriplegia; L89.894 Pressure ulcer of other site, stage 4; L89.224 Pressure ulcer of left hip, stage 4; G93.1 Anoxic brain damage, not elsewhere classified; Z99.11 Dependence on respirator [ventilator] status; N39.0 Urinary tract infection, site not specified; J96.11 Chronic respiratory failure with hypoxia; J90 Pleural effusion, not elsewhere classified; N17.9 Acute kidney failure, unspecified; R64 Cachexia; L97.819 Non-pressure chronic ulcer of other part of right lower leg with unspecified severity; R13.10 Dysphagia, unspecified; N18.9 Chronic kidney disease, unspecified; E11.51 Type 2 diabetes mellitus with diabetic peripheral angiopathy without gangrene; D63.1 Anemia in chronic kidney disease; Z93.0 Tracheostomy status; Z93.1 Gastrostomy status; Z20.822 Contact with and (suspected) exposure to COVID-19; E11.621 Type 2 diabetes mellitus with foot ulcer; Z86.74 Personal history of sudden cardiac arrest; Z87.01 Personal history of pneumonia (recurrent); Z87.891 Personal history of nicotine dependence; F43.10 Post-traumatic stress disorder, unspecified; Z79.4 Long term (current) use of insulin; Z79.51 Long term (current) use of inhaled steroids; Z79.899 Other long term (current) drug therapy; M24.532 Contracture, left wrist; M24.531 Contracture, right wrist; M24.552 Contracture, left hip; M24.551 Contracture, right hip; M24.522 Contracture, left elbow; M24.521 Contracture, right elbow; M24.561 Contracture, right knee; M24.562 Contracture, left knee; M89.8X9 Other specified disorders of bone, unspecified site; L97.529 Non-pressure chronic ulcer of other part of left foot with unspecified severity; G31.9 Degenerative disease of nervous system, unspecified; H70.93 Unspecified mastoiditis, bilateral; F01.50 Vascular dementia, unspecified severity, without behavioral disturbance, psychotic disturbance, mood disturbance, and anxiety; E83.41 Hypermagnesemia; E86.9 Volume depletion, unspecified; Z86.73 Personal history of transient ischemic attack (TIA), and cerebral infarction without residual deficits; I70.238 Atherosclerosis of native arteries of right leg with ulceration of other part of lower leg; L98.499 Non-pressure chronic ulcer of skin of other sites with unspecified severity; I70.25 Atherosclerosis of native arteries of other extremities with ulceration; B96.89 Other specified bacterial agents as the cause of diseases classified elsewhere
CPT/HCPCS: 31720; 36410; 36415; 36600; 70450-TC; 71045-TC; 80048-TC; 80053-TC; 80061-TC; 80076-TC; 80177; 80185-TC; 80202-TC; 81001; 82272-TC; 82570-TC; 82607-TC; 82803-TC; 82962-TC; 83540-TC; 83735-TC; 84100-TC; 84134-TC; 84300-TC; 84439-TC; 84443-TC; 85025-TC; 85027-TC; 85730-TC; 86850-TC; 87040-TC; 87081-TC; 87086-TC; 94003-TC; 94760-TC; 94762-TC; 94799-TC; 95819-TC; 99082-TC; A4223; A4623; A6403; A7526; G0378; J0692; J0696; J1165; J1815; J1953; J2060; J2185; J3370; J7030; J7040; J7050; J7060; J7070; P9016

== ENCOUNTER 2023-07-06 21:10 | Inpatient (IN) | payer MEDICARE, OTHER ==
[~2023-07-06] VITALS: Ht 152.4 cm; Wt 66.2 kg
[~2023-07-06 21:10] MED LIST: ACET-2605 GT; ACET-868 GT; ALBU8.5H8 IH; AMIN30LI2 GT; ARGI1POW13 GT; ASCO500L2 GT; BACL5TAB GT; CHLO473M5 MM; COLL30OI TP; CRAN425C6 GT; DIABETISOURCE AC GT; FERR220S2 GT; INSU100V28 SQ; LEVE750T4 PO; MAG30ORA GT; MAGN400O6 GT; OMEP20TA5 GT; SODI473S9 TP; THIA100T68 GT
[2023-07-06] MEDS ORDERED: DEXTROSE 50%-WATER 50 ML DISP.SYRIN ONE (21:18)
[2023-07-06] MEDS ORDERED: ACETAMINOPHEN 650 MG/SUPP.RECT RC ONE ×2 (21:24→21:30)
[2023-07-06] MEDS ORDERED: DEXTROSE 50%-WATER 50 ML DISP.SYRIN IVP ONE (21:30)
[2023-07-06] MEDS ORDERED: IV NS 0.9% 1,000 ML BAG IV ONE (21:30)
[2023-07-06 21:57] LABS: BASOPHILS # (AUTO) 0.1 K/uL (0.0-0.2); BASOPHILS % (AUTO) 0.6 % (0.0-2.0); EOSINOPHILS # (AUTO) 0.1 K/uL (0.0-0.7); EOSINOPHILS % (AUTO) 0.6 % (0.0-6.0); HEMATOCRIT 32 % (39-51); LYMPHOCYTES # (AUTO) 0.7 K/uL (0.8-4.8); LYMPHOCYTES % (AUTO) 5.5 % (20.0-44.0); MEAN CORPUSCULAR HEMOGLOBIN 29 PG (26.0-33.0); MEAN CORPUSCULAR HGB CONC 32 g/dl (31.0-36.0); MEAN CORPUSCULAR VOLUME 91 fL (80-96); MONOCYTES # (AUTO) 0.4 K/uL (0.1-1.30); MONOCYTES % (AUTO) 3.2 % (2.0-12.0); NEUTROPHILS # (AUTO) 12.2 K/uL (1.8-8.9); NEUTROPHILS % (AUTO) 90.1 % (43.0-81.0); PLATELET COUNT (AUTO) 313 K/uL (150-450); RED BLOOD CELL COUNT(AUTO) 3.45 MIL/uL (4.5-6.0); RED CELL DISTRIBUTION WIDTH 22.4 % (11.5-15.0); WHITE BLOOD COUNT (AUTO) 13.6 K/uL (4.3-11.0)
[2023-07-06 22:07] LABS: APPEARANCE,URINE TURBID (CLEAR); BILIRUBIN,URINE 2+ (NEGATIVE); BLOOD, URINE 3+ Ery/uL (NEGATIVE); COLOR,URINE AMBER (YELLOW); KETONES,URINE 1+ mg/dL (NEGATIVE); LEUKOCYTE ESTERASE ,URINE 2+ (NEGATIVE); NITRITE, URINE POSITIVE (NEGATIVE); PH,URINE 6.5 (5.0-8.0); PROTEIN,URINE 3+ mg/dl (NEGATIVE); UGLUCOSE NEGATIVE (NEGATIVE)
[2023-07-06 22:07] LABS: CALCIUM, SERUM 8.4 mg/dL (8.5-10.1); CARBON DIOXIDE 23 mmol/L (21-32); CHLORIDE 98 mmol/L (98-107); CREATININE 2.2 mg/dL (0.6-1.3); GLUCOSE 335 mg/dL (74-106); POTASSIUM 4.2 mmol/L (3.5-5.1); SODIUM SERUM 131 mmol/L (136-145); UREA NITROGEN, BLOOD 66 mg/dL (7-18)
[2023-07-06 22:13] LABS: INR 1.31 (0.91-1.10); PARTIAL THROMBOPLASTIN TIME 30.8 SEC (24.3-34.3); PROTHROMBIN TIME 13.6 SECS (9.2-11.1)
[2023-07-06] MEDS ORDERED: AZITHROMYCIN 500 MG VIAL ONE (22:15)
[2023-07-06] MEDS ORDERED: CEFTRIAXONE 1GM BAG (ER ONLY) 50 ML IV ONE (22:15)
[2023-07-06 22:21] LABS: ALANINE AMINOTRANSFERASE 14 U/L (12-78); ALBUMIN 1.6 g/dL (3.4-5.0); ALKALINE PHOSPHATASE 57 U/L (46-116); ASPARTATE AMINOTRANSFERASE 21 U/L (15-37); BILIRUBIN,DIRECT 0.1 mg/dL (0.0-0.2); BILIRUBIN,TOTAL 0.3 mg/dL (0.2-1.0); TOTAL PROTEIN, SERUM 6.8 g/dL (6.4-8.2)
[2023-07-06] MEDS ORDERED: ASPIRIN 300 MG/SUPP.RECT RC ONE ×2 (22:27→22:30)
[2023-07-06] MEDS ORDERED: CEFTRIAXONE 1GM BAG (ER ONLY) 1 GM/50 ML PIGGYBACK IV ONE (22:30)
[2023-07-06] MEDS ORDERED: AZITHROMYCIN 500 MG in IV D5W 250 ML IV ONE (22:30)
[2023-07-06 22:34] LABS: ADD URINE CULTURE YES; BACTERIA,URINE 1+ /HPF (None Seen); MUCUS,URINE Many /LPF (None Seen); RBC,URINE TOO NUMEROUS TO COUN /HPF (0-2); SQUAMOUS EPITHELIAL CELL,UR None Seen /HPF (None Seen)
[2023-07-06 22:35] LABS: WBC,URINE 51-80 /HPF (0-3)
[2023-07-06] MEDS ORDERED: ONDANSETRON HCL/PF 4 MG/2 ML VIAL IVP PRN (23:30)
[2023-07-06] MEDS ORDERED: ACETAMINOPHEN 325 MG TABLET PO PRN (23:30)
[2023-07-06] MEDS ORDERED: IV NS 0.9% 1,000 ML IV PRN (23:30)
[2023-07-06] MEDS ORDERED: Z GUARD REMEDY 4 OZ OINT TP PRN (23:30)
[2023-07-06 23:38] LABS: ANISOCYTOSIS 1+; BAND % (MANUAL) 43 % (0.0-5.0); EOSINOPHILS % (MANUAL) 1 % (0-4); LYMPHOCYTES % (MANUAL) 6 % (16-48); METAMYELOCYTES % 7 % (0-0); MONOCYTES % (MANUAL) 1 % (0-11.0); MYELOCYTES % 15 % (0-0); NEUTROPHILS % (MANUAL) 27 (42-76); PLATELET ESTIMATE ADEQUATE
[2023-07-07] VITALS (39 sets, daily range): BP systolic 65–149; BP diastolic 43–61; TEMP 96.1–98.2; O2SAT 92–100
[2023-07-07] MEDS ORDERED: ALBUTEROL FS 2.5 MG/3 ML VIAL.NEB NEB PRN
[2023-07-07] MEDS ORDERED: IPRATROPIUM NEB FS 0.5 MG/2.5 ML AMPUL.NEB NEB PRN
[2023-07-07] MEDS ORDERED: NEPRO 1,000 ML BOTTLE GT PRN (00:30)
[2023-07-07] MEDS ORDERED: CEFEPIME 2 GM in IV D5W 100 ML IV ONE (02:37)
[2023-07-07] MEDS ORDERED: VANCOMYCIN 1 GM in IV D5W 250ml IV ONE (03:00)
[2023-07-07] MEDS ORDERED: ACETAMINOPHEN 650 MG/20.3 ML UDC PO PRN (03:00)
[2023-07-07] MEDS ORDERED: LEVETIRACETAM (500MG) 500 MG/5 ML VIAL IV ONE (03:35)
[2023-07-07] MEDS ORDERED: CEFEPIME 1 GM VIAL ONE (03:35)
[2023-07-07] MEDS ORDERED: VANCOMYCIN 1 GM /D5W 250 ML PB IV ONE (03:36)
[2023-07-07] MEDS: LACOSAMIDE ORAL SOLN 50 MG/5 ML UDC GT SCH ×3 (04:16→21:53)
[2023-07-07] MEDS: LEVETIRACETAM SOL (5 ML) 100 MG/ML UDC PO SCH ×3 (04:19→21:52)
[2023-07-07] MEDS: BLOOD SUGAR DIAGNOSTIC 1 EACH STRIP IN SCH ×4 (06:44→17:01)
[2023-07-07] MEDS ORDERED: IV NS 0.9% 500 ML IV ONE (07:30)
[2023-07-07] MEDS ORDERED: NA P133E RC (07:50)
[2023-07-07] MEDS ORDERED: NUT.250L18 GT (07:50)
[2023-07-07] MEDS ORDERED: CALC1TAB30 GT (07:50)
[2023-07-07] MEDS ORDERED: SENN-261 GT (07:50)
[2023-07-07] MEDS ORDERED: MULT-447 GT (07:50)
[2023-07-07] MEDS ORDERED: ALBU2.5V38 IH ×2 (07:50)
[2023-07-07 08:22] LABS: BASOPHILS % (AUTO) 0.2 % (0.0-2.0); EOSINOPHILS # (AUTO) 0.4 K/uL (0.0-0.7); EOSINOPHILS % (AUTO) 4.8 % (0.0-6.0); HEMATOCRIT 25 % (39-51); LYMPHOCYTES # (AUTO) 0.5 K/uL (0.8-4.8); LYMPHOCYTES % (AUTO) 5.7 % (20.0-44.0); MEAN CORPUSCULAR HEMOGLOBIN 30 PG (26.0-33.0); MEAN CORPUSCULAR HGB CONC 33 g/dl (31.0-36.0); MEAN CORPUSCULAR VOLUME 90 fL (80-96); MONOCYTES # (AUTO) 0.4 K/uL (0.1-1.30); MONOCYTES % (AUTO) 4.7 % (2.0-12.0); NEUTROPHILS # (AUTO) 7.1 K/uL (1.8-8.9); NEUTROPHILS % (AUTO) 84.6 % (43.0-81.0); PLATELET COUNT (AUTO) 221 K/uL (150-450); RED BLOOD CELL COUNT(AUTO) 2.72 MIL/uL (4.5-6.0); RED CELL DISTRIBUTION WIDTH 21.7 % (11.5-15.0); WHITE BLOOD COUNT (AUTO) 8.4 K/uL (4.3-11.0)
[2023-07-07 08:35] LABS: CALCIUM, SERUM 7.9 mg/dL (8.5-10.1); CARBON DIOXIDE 20 mmol/L (21-32); CHLORIDE 102 mmol/L (98-107); CREATININE 1.8 mg/dL (0.6-1.3); GLUCOSE 93 mg/dL (74-106); MAGNESIUM 2.1 mg/dL (1.8-2.4); PHOSPHORUS 3.8 mg/dL (2.5-4.9); POTASSIUM 3.4 mmol/L (3.5-5.1); SODIUM SERUM 134 mmol/L (136-145); UREA NITROGEN, BLOOD 68 mg/dL (7-18)
[2023-07-07 08:37] LABS: IRON, SERUM 5 ug/dl (50-175); TOTAL IRON BINDING CAPACITY 79 ug/dl (250-450)
[2023-07-07 08:50] LABS: CHOLESTEROL 67 mg/dL (<200); FERRITIN 433 ng/mL (8-388); HDL CHOLESTEROL 29 mg/dL (40-60); LDL 13 mg/dL (0-99); THYROID STIMULATING HORMONE 2.822 uIU/mL (0.358-3.74); TRIGLYCERIDES 64 mg/dL (30-150)
[2023-07-07] MEDS: CHLORHEXIDINE GLUCONATE 15 ML UDC MM SCH ×2 (08:55→21:52)
[2023-07-07] MEDS: FERROUS SULFATE UDC 300 MG/5 ML UDC GT SCH ×2 (08:56→16:45)
[2023-07-07] MEDS: BACLOFEN (10 MG) 10 MG TABLET GT SCH ×3 (08:56→16:44)
[2023-07-07] MEDS: PANTOPRAZOLE 40 MG/PACK PACK GT SCH (08:56)
[2023-07-07] MEDS: ASPIRIN 81 MG TAB.CHEW GT SCH (08:57)
[2023-07-07] MEDS: PHENYTOIN SUSP UDC 100 MG/4 ML UDC GT SCH ×2 (08:57→21:52)
[2023-07-07] MEDS: THIAMINE HCL 100 MG TABLET GT SCH (08:57)
[2023-07-07] MEDS: DAKINS FULL STRENGTH (0.5%) 480 ML BOTTLE TOP SCH (08:58)
[2023-07-07] MEDS: COLLAGENASE 30 GM TUBE TP SCH (08:58)
[2023-07-07] MEDS ORDERED: PROSOURCE / PROSTAT (PYXIS) 30 ML UDC GT SCH (09:00)
[2023-07-07] MEDS ORDERED: Medication Not On Formulary EA (Omeprazole 20 MG) GT SCH (09:00)
[2023-07-07] MEDS ORDERED: NOREPINEPHRINE 8 MG in IV NS 0.9% 242 ML IV PRN (09:30)
[2023-07-07] MEDS: IV NS 0.9% 1,000 ML IV SCH ×2 (09:43→14:01)
[2023-07-07 09:47] LABS: BAND % (MANUAL) 25 % (0.0-5.0); EOSINOPHILS % (MANUAL) 9 % (0-4); LYMPHOCYTES % (MANUAL) 6 % (16-48); MONOCYTES % (MANUAL) 4 % (0-11.0); NEUTROPHILS % (MANUAL) 56 (42-76); PLATELET ESTIMATE ADEQUATE
[2023-07-07 09:48] LABS: ANISOCYTOSIS 1+
[2023-07-07] MEDS: THERAHONEY GEL 1.5 OZ TUBE TP SCH (11:00)
[2023-07-07] MEDS: HYDROGEL DRESSING 90 GM TUBE TP SCH (11:00)
[2023-07-07] MEDS ORDERED: POTASSIUM CL. PREMIX PERIPHER. 50 ML IV SCH (14:00)
[2023-07-07] MEDS: DEXTROSE 50%-WATER 50 ML DISP.SYRIN IV PRN ×2 (14:21→19:17)
[2023-07-07] MEDS: INSULIN REGULAR, HUMAN 100 UNIT/ML 3 ML VIAL SQ PRN ×2 (14:21→17:02)
[2023-07-07] MEDS: ARGININE/GLUTAMINE/CALCIUM BMB 1 EACH POWD.PACK GT SCH (17:00)
[2023-07-07] MEDS ORDERED: ASCORBIC ACID SYRUP 500 MG/5 ML UDC GT SCH (18:00)
[2023-07-07] MEDS: ASCORBIC ACID 500 MG TABLET GT SCH (19:10)
[2023-07-07] MEDS: IV D5/ 0.9% NACL 1,000 ML IV PRN (20:20)
[2023-07-08] VITALS (77 sets, daily range): BP systolic 85–144; BP diastolic 39–79; TEMP 97.1–98.9; O2SAT 89–100
[2023-07-08] MEDS: BLOOD SUGAR DIAGNOSTIC 1 EACH STRIP IN SCH ×4 (02:05→18:05)
[2023-07-08] MEDS: CEFEPIME 1 GM in IV D5W 50 ML IV SCH (02:12)
[2023-07-08] MEDS: VANCOMYCIN 500 MG in IV D5W 100ml IV SCH (03:10)
[2023-07-08] MEDS: GLUCERNA 1.2 1,000 ML BOTTLE GT PRN (05:24)
[2023-07-08] MEDS: IV D5/ 0.9% NACL 1,000 ML IV PRN ×2 (05:24→14:18)
[2023-07-08] MEDS: CHLORHEXIDINE GLUCONATE 15 ML UDC MM SCH ×2 (08:54→21:44)
[2023-07-08] MEDS: LEVETIRACETAM SOL (5 ML) 100 MG/ML UDC PO SCH ×2 (08:55→21:44)
[2023-07-08] MEDS: PHENYTOIN SUSP UDC 100 MG/4 ML UDC GT SCH ×2 (08:55→21:44)
[2023-07-08] MEDS: FERROUS SULFATE UDC 300 MG/5 ML UDC GT SCH ×2 (08:55→17:46)
[2023-07-08] MEDS: THIAMINE HCL 100 MG TABLET GT SCH (09:00)
[2023-07-08] MEDS: ASPIRIN 81 MG TAB.CHEW GT SCH (09:00)
[2023-07-08] MEDS: BACLOFEN (10 MG) 10 MG TABLET GT SCH ×3 (09:00→17:47)
[2023-07-08] MEDS: PANTOPRAZOLE 40 MG/PACK PACK GT SCH (09:00)
[2023-07-08] MEDS: DAKINS FULL STRENGTH (0.5%) 480 ML BOTTLE TOP SCH (09:01)
[2023-07-08] MEDS: THERAHONEY GEL 1.5 OZ TUBE TP SCH (09:02)
[2023-07-08] MEDS: HYDROGEL DRESSING 90 GM TUBE TP SCH (09:04)
[2023-07-08] MEDS: COLLAGENASE 30 GM TUBE TP SCH (09:11)
[2023-07-08] MEDS: ARGININE/GLUTAMINE/CALCIUM BMB 1 EACH POWD.PACK GT SCH ×2 (09:11→17:47)
[2023-07-08 09:50] LABS: EOSINOPHILS # (AUTO) 0.2 K/uL (0.0-0.7); EOSINOPHILS % (AUTO) 1.1 % (0.0-6.0); HEMATOCRIT 28 % (39-51); HEMOGLOBIN 8.5 g/dL (13.5-17.5); LYMPHOCYTES # (AUTO) 0.3 K/uL (0.8-4.8); LYMPHOCYTES % (AUTO) 1.4 % (20.0-44.0); MEAN CORPUSCULAR HEMOGLOBIN 29 PG (26.0-33.0); MEAN CORPUSCULAR HGB CONC 31 g/dl (31.0-36.0); MEAN CORPUSCULAR VOLUME 93 fL (80-96); MONOCYTES # (AUTO) 0.5 K/uL (0.1-1.30); MONOCYTES % (AUTO) 2.5 % (2.0-12.0); NEUTROPHILS # (AUTO) 20.1 K/uL (1.8-8.9); PLATELET COUNT (AUTO) 202 K/uL (150-450); RED BLOOD CELL COUNT(AUTO) 2.95 MIL/uL (4.5-6.0); RED CELL DISTRIBUTION WIDTH 22.1 % (11.5-15.0); WHITE BLOOD COUNT (AUTO) 21.1 K/uL (4.3-11.0)
[2023-07-08 10:51] LABS: ALANINE AMINOTRANSFERASE 9 U/L (12-78); ALKALINE PHOSPHATASE 96 U/L (46-116); ASPARTATE AMINOTRANSFERASE 21 U/L (15-37); BILIRUBIN,TOTAL 0.2 mg/dL (0.2-1.0); CALCIUM, SERUM 9.6 mg/dL (8.5-10.1); CARBON DIOXIDE 16 mmol/L (21-32); CHLORIDE 104 mmol/L (98-107); CREATININE 1.4 mg/dL (0.6-1.3); GLUCOSE 146 mg/dL (74-106); MAGNESIUM 2.7 mg/dL (1.8-2.4); POTASSIUM 3.1 mmol/L (3.5-5.1); SODIUM SERUM 132 mmol/L (136-145); TOTAL PROTEIN, SERUM 6.4 g/dL (6.4-8.2); UREA NITROGEN, BLOOD 63 mg/dL (7-18)
[2023-07-08 10:59] LABS: ALBUMIN 1.1 g/dL (3.4-5.0)
[2023-07-08] MEDS: LACOSAMIDE ORAL SOLN 50 MG/5 ML UDC GT SCH ×2 (11:48→21:44)
[2023-07-08 12:34] LABS: CREATINE KINASE, TOTAL 31 U/L (39-308)
[2023-07-08] MEDS: ASCORBIC ACID 500 MG TABLET GT SCH (17:46)
[2023-07-08 19:44] LABS: ANISOCYTOSIS 1+; BAND % (MANUAL) 12 % (0.0-5.0); EOSINOPHILS % (MANUAL) 1 % (0-4); LYMPHOCYTES % (MANUAL) 6 % (16-48); METAMYELOCYTES % 8 % (0-0); MONOCYTES % (MANUAL) 2 % (0-11.0); MYELOCYTES % 3 % (0-0); NEUTROPHILS % (MANUAL) 68 (42-76); OVALOCYTES 1+; PLATELET ESTIMATE ADEQUATE
[2023-07-08 19:45] LABS: TARGET CELLS RARE
[2023-07-08 19:46] LABS: ROULEAUX 1+
[2023-07-09] VITALS (21 sets, daily range): BP systolic 81–146; BP diastolic 42–71; TEMP 97.6–98.2; O2SAT 90–100
[2023-07-09] MEDS: GLUCERNA 1.2 1,000 ML BOTTLE GT PRN ×2 (00:57→19:57)
[2023-07-09] MEDS: BLOOD SUGAR DIAGNOSTIC 1 EACH STRIP IN SCH ×4 (00:57→19:16)
[2023-07-09] MEDS: IV D5/ 0.9% NACL 1,000 ML IV PRN (00:58)
[2023-07-09] MEDS: CEFEPIME 1 GM in IV D5W 50 ML IV SCH (02:12)
[2023-07-09] MEDS: VANCOMYCIN 500 MG in IV D5W 100ml IV SCH (03:56)
[2023-07-09 04:46] LABS: CALCIUM, SERUM 10.2 mg/dL (8.5-10.1); CREATININE 1.3 mg/dL (0.6-1.3)
[2023-07-09 05:11] LABS: POTASSIUM 2.4 mmol/L (3.5-5.1)
[2023-07-09 07:07] LABS: PTH, INTACT 11 pg/mL (15-65)
[2023-07-09] MEDS: POTASSIUM CL. PREMIX PERIPHER. 50 ML IV SCH ×2 (07:37→08:26)
[2023-07-09] MEDS: POTASSIUM CHLORIDE 20 MEQ POWDER PACKET GT SCH ×3 (07:38→08:24)
[2023-07-09] MEDS: LEVETIRACETAM SOL (5 ML) 100 MG/ML UDC PO SCH ×2 (08:19→22:37)
[2023-07-09] MEDS: PHENYTOIN SUSP UDC 100 MG/4 ML UDC GT SCH ×2 (08:19→21:00)
[2023-07-09] MEDS: CHLORHEXIDINE GLUCONATE 15 ML UDC MM SCH ×2 (08:20→21:00)
[2023-07-09] MEDS: THIAMINE HCL 100 MG TABLET GT SCH (08:20)
[2023-07-09] MEDS: FERROUS SULFATE UDC 300 MG/5 ML UDC GT SCH ×2 (08:20→17:20)
[2023-07-09] MEDS: BACLOFEN (10 MG) 10 MG TABLET GT SCH ×3 (08:21→17:20)
[2023-07-09] MEDS: ASPIRIN 81 MG TAB.CHEW GT SCH (08:21)
[2023-07-09] MEDS: PANTOPRAZOLE 40 MG/PACK PACK GT SCH (08:21)
[2023-07-09] MEDS: LACOSAMIDE ORAL SOLN 50 MG/5 ML UDC GT SCH ×2 (08:24→21:00)
[2023-07-09] MEDS: Potassium Chloride 20 MEQ in IV D5/ 0.9% NACL 1,000 ML IV SCH ×2 (09:07→17:19)
[2023-07-09 09:08] LABS: *SPE A/G RATIO 0.4 (0.7-1.7); *SPE ALBUMIN 1.7 g/dL (2.9-4.4); *SPE ALPHA-1-GLOBULIN 0.6 g/dL (0.0-0.4); *SPE BETA GLOBULIN 0.7 g/dL (0.7-1.3); *SPE M-SPIKE Not Observed g/dL (Not Observed); *SPE PROTEIN TOTAL 5.7 g/dL (6.0-8.5); *SPEGAMMA GLOBULIN 1.7 g/dL (0.4-1.8)
[2023-07-09] MEDS: HYDROGEL DRESSING 90 GM TUBE TP SCH (09:50)
[2023-07-09] MEDS: DAKINS FULL STRENGTH (0.5%) 480 ML BOTTLE TOP SCH (09:50)
[2023-07-09] MEDS: COLLAGENASE 30 GM TUBE TP SCH (09:51)
[2023-07-09] MEDS: THERAHONEY GEL 1.5 OZ TUBE TP SCH (09:51)
[2023-07-09] MEDS: ARGININE/GLUTAMINE/CALCIUM BMB 1 EACH POWD.PACK GT SCH ×2 (10:37→17:19)
[2023-07-09] MEDS: INSULIN REGULAR, HUMAN 100 UNIT/ML 3 ML VIAL SQ PRN ×2 (12:34→19:17)
[2023-07-09 13:31] LABS: CALCIUM, SERUM 10.6 mg/dL (8.5-10.1); CREATININE 1.3 mg/dL (0.6-1.3); POTASSIUM 4.3 mmol/L (3.5-5.1)
[2023-07-09] MEDS ORDERED: NEUTRA PHOS 1 POWD.PACKET GT ONE (16:00)
[2023-07-09] MEDS: ASCORBIC ACID 500 MG TABLET GT SCH (17:20)
[2023-07-10] VITALS (22 sets, daily range): BP systolic 85–186; BP diastolic 30–86; TEMP 97.4–100.2; O2SAT 90–100
[2023-07-10] MEDS: INSULIN REGULAR, HUMAN 100 UNIT/ML 3 ML VIAL SQ PRN ×2 (01:24→08:20)
[2023-07-10] MEDS: CEFEPIME 1 GM in IV D5W 50 ML IV SCH (01:33)
[2023-07-10] MEDS: Potassium Chloride 20 MEQ in IV D5/ 0.9% NACL 1,000 ML IV SCH (03:23)
[2023-07-10] MEDS ORDERED: VANCOMYCIN HCL 0.75 GM in IV D5W 250 ML IV SCH (04:00)
[2023-07-10] MEDS ORDERED: IV NS 0.9% 1,000 ML BAG IV PRN (05:30)
[2023-07-10] MEDS: BLOOD SUGAR DIAGNOSTIC 1 EACH STRIP IN SCH ×4 (06:00→17:46)
[2023-07-10 08:05] LABS: CALCIUM, SERUM 11.3 mg/dL (8.5-10.1); CARBON DIOXIDE 16 mmol/L (21-32); CHLORIDE 111 mmol/L (98-107); CREATININE 1.5 mg/dL (0.6-1.3); GLUCOSE 131 mg/dL (74-106); PHOSPHORUS 3.9 mg/dL (2.5-4.9); SODIUM SERUM 135 mmol/L (136-145)
[2023-07-10 08:25] LABS: UREA NITROGEN, BLOOD 95 mg/dL (7-18)
[2023-07-10] MEDS: ARGININE/GLUTAMINE/CALCIUM BMB 1 EACH POWD.PACK GT SCH ×2 (09:00→17:00)
[2023-07-10] MEDS ORDERED: SODIUM POLYSTYRENE SULFONATE 15 G/60 ML BOTTLE GT ONE (09:30)
[2023-07-10] MEDS: ASPIRIN 81 MG TAB.CHEW GT SCH (09:51)
[2023-07-10] MEDS: FERROUS SULFATE UDC 300 MG/5 ML UDC GT SCH ×2 (09:52→17:00)
[2023-07-10] MEDS: PHENYTOIN SUSP UDC 100 MG/4 ML UDC GT SCH (09:52)
[2023-07-10] MEDS: PANTOPRAZOLE 40 MG/PACK PACK GT SCH (09:53)
[2023-07-10] MEDS: BACLOFEN (10 MG) 10 MG TABLET GT SCH ×3 (09:53→17:00)
[2023-07-10] MEDS: THIAMINE HCL 100 MG TABLET GT SCH (09:53)
[2023-07-10] MEDS: LEVETIRACETAM SOL (5 ML) 100 MG/ML UDC PO SCH (09:54)
[2023-07-10] MEDS: CHLORHEXIDINE GLUCONATE 15 ML UDC MM SCH ×2 (09:54→22:59)
[2023-07-10] MEDS: LACOSAMIDE ORAL SOLN 50 MG/5 ML UDC GT SCH ×2 (09:57→21:00)
[2023-07-10] MEDS ORDERED: SODIUM POLYSTYRENE SULF. PWD 15 GM UDC GT ONE (10:00)
[2023-07-10] MEDS ORDERED: SODIUM BICARBONATE SYR 100 MEQ in IV 1/2NS 1000 ML 1,000 ML IV SCH (10:30)
[2023-07-10] MEDS: DAKINS FULL STRENGTH (0.5%) 480 ML BOTTLE TOP SCH (10:40)
[2023-07-10] MEDS: HYDROGEL DRESSING 90 GM TUBE TP SCH (10:40)
[2023-07-10] MEDS: SODIUM BICARBONATE SYR 100 MEQ in IV 1/2NS 1000 ML 1,000 ML IV SCH ×2 (11:33→21:46)
[2023-07-10] MEDS: COLLAGENASE 30 GM TUBE TP SCH (11:34)
[2023-07-10] MEDS: THERAHONEY GEL 1.5 OZ TUBE TP SCH (11:34)
[2023-07-10] MEDS ORDERED: DEXTROSE 50%-WATER 50 ML DISP.SYRIN IV ONE (13:54)
[2023-07-10] MEDS ORDERED: EPINEPHRINE (1:10,000) SYRINGE 1 MG/10 ML DISP.SYRIN IVP ONE (13:54)
[2023-07-10] MEDS ORDERED: ATROPINE SULFATE 1 MG/10 ML DISP.SYRIN IV ONE (13:54)
[2023-07-10] MEDS ORDERED: CALCIUM CHLORIDE 1,000 MG/10 ML DISP.SYRIN IV ONE (13:54)
[2023-07-10] MEDS ORDERED: SODIUM BICARBONATE SYR 50 MEQ/50 ML DISP.SYRIN IV ONE ×2 (13:56→15:30)
[2023-07-10] MEDS: EPINEPHRINE (1:1000) 5 MG in IV NS 0.9% 245 ML IV PRN ×2 (15:14→17:47)
[2023-07-10 15:58] LABS: BASOPHILS # (AUTO) 0.1 K/uL (0.0-0.2); BASOPHILS % (AUTO) 0.3 % (0.0-2.0); EOSINOPHILS # (AUTO) 0.4 K/uL (0.0-0.7); EOSINOPHILS % (AUTO) 1.1 % (0.0-6.0); HEMATOCRIT 25 % (39-51); HEMOGLOBIN 7.4 g/dL (13.5-17.5); LYMPHOCYTES # (AUTO) 2.7 K/uL (0.8-4.8); LYMPHOCYTES % (AUTO) 7.1 % (20.0-44.0); MEAN CORPUSCULAR HEMOGLOBIN 28 PG (26.0-33.0); MEAN CORPUSCULAR HGB CONC 29 g/dl (31.0-36.0); MEAN CORPUSCULAR VOLUME 95 fL (80-96); MONOCYTES % (AUTO) 2.6 % (2.0-12.0); NEUTROPHILS # (AUTO) 33.7 K/uL (1.8-8.9); NEUTROPHILS % (AUTO) 88.9 % (43.0-81.0); PLATELET COUNT (AUTO) 305 K/uL (150-450); RED BLOOD CELL COUNT(AUTO) 2.64 MIL/uL (4.5-6.0); RED CELL DISTRIBUTION WIDTH 22.7 % (11.5-15.0)
[2023-07-10 16:08] LABS: WHITE BLOOD COUNT (AUTO) 37.9 K/uL (4.3-11.0)
[2023-07-10 16:14] LABS: ALANINE AMINOTRANSFERASE 34 U/L (12-78); ALKALINE PHOSPHATASE 188 U/L (46-116); ASPARTATE AMINOTRANSFERASE 57 U/L (15-37); BILIRUBIN,TOTAL 0.3 mg/dL (0.2-1.0); CARBON DIOXIDE 23 mmol/L (21-32); CHLORIDE 113 mmol/L (98-107); CREATININE 1.8 mg/dL (0.6-1.3); GLUCOSE 128 mg/dL (74-106); POTASSIUM 5.6 mmol/L (3.5-5.1); TOTAL PROTEIN, SERUM 5.9 g/dL (6.4-8.2)
[2023-07-10 16:22] LABS: ALBUMIN 0.9 g/dL (3.4-5.0); CALCIUM, SERUM 14.9 mg/dL (8.5-10.1); UREA NITROGEN, BLOOD 101 mg/dL (7-18)
[2023-07-10 16:24] LABS: SODIUM SERUM 145 mmol/L (136-145)
[2023-07-10] MEDS: ASCORBIC ACID 500 MG TABLET GT SCH (17:05)
[2023-07-10 17:40] LABS: BAND % (MANUAL) 6 % (0.0-5.0); BLASTS, MANUAL % 3 % (0-0); LYMPHOCYTES % (MANUAL) 6 % (16-48); METAMYELOCYTES % 9 % (0-0); MONOCYTES % (MANUAL) 3 % (0-11.0); MYELOCYTES % 19 % (0-0); NEUTROPHILS % (MANUAL) 54 (42-76); PLATELET ESTIMATE ADEQUATE
[2023-07-10 17:41] LABS: ANISOCYTOSIS 1+
[2023-07-10 18:18] LABS: ABG BASE EXCESS -9.4 mmol/L; ABG OXYGEN SATURATION 92.8 % (92.0-98.5); ABG PCO2 43.5 mmHg (35.0-45.0); ABG PH 7.223 (7.350-7.450); ABG PO2 77.5 mmHg (75.0-100.0); ABG TOTAL HEMOGLOBIN 7.6 G/dL (13.5-18.0); COHb 0.3 % (0.5-1.5); MetHb 0.3 % (0.0-1.5); O2Hb 92.2 % (94.0-97.0); PEEP,BG 8 cm H2O; SITE, ABG Right Femoral; VT, ABG 500 mL
[2023-07-10] MEDS: EPINEPHRINE (1:1000) 10 MG in IV NS 0.9% 240 ML IV PRN (20:56)
[2023-07-10] MEDS: PHENYTOIN SODIUM IV 100 MG/2ML VIAL IV SCH (22:46)
[2023-07-10] MEDS ORDERED: LEVETIRACETAM (500MG) 500 MG/5 ML VIAL IV ONE (22:58)
[2023-07-10] MEDS: LEVETIRACETAM (500MG) 750 MG in IV NS 0.9% 100 ML IV SCH (23:15)
[2023-07-11] VITALS (76 sets, daily range): BP systolic 89–161; BP diastolic 47–77; TEMP 97–98.1; O2SAT 87–100
[2023-07-11] MEDS ORDERED: VASOPRESSIN INJ 40 UNIT in IV NS 0.9% 38 ML IV PRN ×2
[2023-07-11] MEDS: BLOOD SUGAR DIAGNOSTIC 1 EACH STRIP IN SCH ×5 (01:03→23:48)
[2023-07-11] MEDS: CEFEPIME 1 GM in IV D5W 50 ML IV SCH (01:23)
[2023-07-11] MEDS: EPINEPHRINE (1:1000) 10 MG in IV NS 0.9% 240 ML IV PRN ×2 (01:58→16:37)
[2023-07-11 04:48] LABS: BASOPHILS % (AUTO) 0.1 % (0.0-2.0); EOSINOPHILS # (AUTO) 0.2 K/uL (0.0-0.7); EOSINOPHILS % (AUTO) 0.6 % (0.0-6.0); HEMATOCRIT 22 % (39-51); LYMPHOCYTES # (AUTO) 1.1 K/uL (0.8-4.8); MEAN CORPUSCULAR HEMOGLOBIN 29 PG (26.0-33.0); MEAN CORPUSCULAR HGB CONC 32 g/dl (31.0-36.0); MEAN CORPUSCULAR VOLUME 90 fL (80-96); MONOCYTES # (AUTO) 2.4 K/uL (0.1-1.30); MONOCYTES % (AUTO) 8.5 % (2.0-12.0); NEUTROPHILS # (AUTO) 24.8 K/uL (1.8-8.9); NEUTROPHILS % (AUTO) 86.8 % (43.0-81.0); PLATELET COUNT (AUTO) 204 K/uL (150-450); RED BLOOD CELL COUNT(AUTO) 2.38 MIL/uL (4.5-6.0); RED CELL DISTRIBUTION WIDTH 21.8 % (11.5-15.0); WHITE BLOOD COUNT (AUTO) 28.5 K/uL (4.3-11.0)
[2023-07-11 04:51] LABS: CALCIUM, SERUM 12.2 mg/dL (8.5-10.1); CARBON DIOXIDE 24 mmol/L (21-32); CHLORIDE 111 mmol/L (98-107); CREATININE 1.9 mg/dL (0.6-1.3); GLUCOSE 177 mg/dL (74-106); HEMOGLOBIN 6.8 g/dL (13.5-17.5); MAGNESIUM 2.1 mg/dL (1.8-2.4); PHOSPHORUS 4.1 mg/dL (2.5-4.9); POTASSIUM 5.4 mmol/L (3.5-5.1); SODIUM SERUM 143 mmol/L (136-145)
[2023-07-11 04:58] LABS: UREA NITROGEN, BLOOD 107 mg/dL (7-18)
[2023-07-11] MEDS: VANCOMYCIN 500 MG in IV D5W 100ml IV SCH (05:45)
[2023-07-11 05:50] LABS: BAND % (MANUAL) 10 % (0.0-5.0); EOSINOPHILS % (MANUAL) 1 % (0-4); LYMPHOCYTES % (MANUAL) 7 % (16-48); METAMYELOCYTES % 3 % (0-0); MONOCYTES % (MANUAL) 9 % (0-11.0); MYELOCYTES % 24 % (0-0); NEUTROPHILS % (MANUAL) 46 (42-76)
[2023-07-11 05:51] LABS: ANISOCYTOSIS 1+; PLATELET ESTIMATE ADEQU
[2023-07-11] MEDS: FERROUS SULFATE UDC 300 MG/5 ML UDC GT SCH ×2 (09:00→16:47)
[2023-07-11] MEDS: THIAMINE HCL 100 MG TABLET GT SCH (09:00)
[2023-07-11] MEDS: DAKINS FULL STRENGTH (0.5%) 480 ML BOTTLE TOP SCH (09:00)
[2023-07-11] MEDS: PANTOPRAZOLE 40 MG/PACK PACK GT SCH (09:00)
[2023-07-11] MEDS: THERAHONEY GEL 1.5 OZ TUBE TP SCH (09:00)
[2023-07-11] MEDS: LACOSAMIDE ORAL SOLN 50 MG/5 ML UDC GT SCH ×2 (09:00→21:00)
[2023-07-11] MEDS: HYDROGEL DRESSING 90 GM TUBE TP SCH (09:00)
[2023-07-11] MEDS: LEVETIRACETAM (500MG) 750 MG in IV NS 0.9% 100 ML IV SCH ×3 (09:00→21:09)
[2023-07-11] MEDS: SODIUM BICARBONATE SYR 100 MEQ in IV 1/2NS 1000 ML 1,000 ML IV SCH ×3 (09:00→22:32)
[2023-07-11] MEDS: ASPIRIN 81 MG TAB.CHEW GT SCH (09:00)
[2023-07-11] MEDS: COLLAGENASE 30 GM TUBE TP SCH (09:00)
[2023-07-11] MEDS: BACLOFEN (10 MG) 10 MG TABLET GT SCH ×3 (09:00→16:47)
[2023-07-11] MEDS ORDERED: VANCOMYCIN 1 GM in IV D5W 250 ML IV ONE (10:00)
[2023-07-11] MEDS: ARGININE/GLUTAMINE/CALCIUM BMB 1 EACH POWD.PACK GT SCH ×2 (10:19→16:47)
[2023-07-11] MEDS: PHENYTOIN SODIUM IV 100 MG/2ML VIAL IV SCH ×2 (10:22→21:09)
[2023-07-11] MEDS ORDERED: SODIUM POLYSTYRENE SULFONATE 15 G/60 ML BOTTLE GT ONE (10:30)
[2023-07-11] MEDS: CHLORHEXIDINE GLUCONATE 15 ML UDC MM SCH ×2 (10:45→21:09)
[2023-07-11] MEDS: MEROPENEM 500 MG in IV NS 0.9% 50 ML IV SCH (12:01)
[2023-07-11 12:07] LABS: HEPATITIS B CORE AB, IgM Negative (Negative); HEPATITIS B CORE AB, TOTAL Negative (Negative); HEPATITIS B SURFACE AB Non Reactive (.)
[2023-07-11 14:39] LABS: CALCIUM, SERUM 11.2 mg/dL (8.5-10.1); CARBON DIOXIDE 27 mmol/L (21-32); CHLORIDE 112 mmol/L (98-107); GLUCOSE 122 mg/dL (74-106); POTASSIUM 4.6 mmol/L (3.5-5.1); SODIUM SERUM 145 mmol/L (136-145)
[2023-07-11 14:42] LABS: UREA NITROGEN, BLOOD 108 mg/dL (7-18)
[2023-07-11] MEDS: ASCORBIC ACID 500 MG TABLET GT SCH (16:48)
[2023-07-11 19:23] LABS: ABG BASE EXCESS 2.4 mmol/L; ABG OXYGEN SATURATION 96.9 % (92.0-98.5); ABG PCO2 32.9 mmHg (35.0-45.0); ABG PH 7.508 (7.350-7.450); ABG PO2 94.6 mmHg (75.0-100.0); ABG TOTAL HEMOGLOBIN 7.1 G/dL (13.5-18.0); AaDO2 585.5 mmHg; COHb 0.3 % (0.5-1.5); MetHb 0.5 % (0.0-1.5); O2Hb 96.1 % (94.0-97.0); SITE, ABG Right Radial
[2023-07-11] MEDS: DEXTROSE 50%-WATER 50 ML DISP.SYRIN IV PRN (23:48)
[2023-07-12] VITALS (74 sets, daily range): BP systolic 82–143; BP diastolic 47–84; TEMP 97.5–98; O2SAT 86–98
[2023-07-12] MEDS: MEROPENEM 500 MG in IV NS 0.9% 50 ML IV SCH ×3 (00:52→23:51)
[2023-07-12 04:05] LABS: BASOPHILS % (AUTO) 0.1 % (0.0-2.0); EOSINOPHILS # (AUTO) 0.2 K/uL (0.0-0.7); EOSINOPHILS % (AUTO) 0.7 % (0.0-6.0); HEMATOCRIT 28 % (39-51); LYMPHOCYTES # (AUTO) 0.9 K/uL (0.8-4.8); LYMPHOCYTES % (AUTO) 2.9 % (20.0-44.0); MEAN CORPUSCULAR HEMOGLOBIN 29 PG (26.0-33.0); MEAN CORPUSCULAR HGB CONC 32 g/dl (31.0-36.0); MEAN CORPUSCULAR VOLUME 91 fL (80-96); MONOCYTES # (AUTO) 0.9 K/uL (0.1-1.30); MONOCYTES % (AUTO) 3.1 % (2.0-12.0); NEUTROPHILS % (AUTO) 93.2 % (43.0-81.0); PLATELET COUNT (AUTO) 146 K/uL (150-450); RED BLOOD CELL COUNT(AUTO) 3.08 MIL/uL (4.5-6.0); RED CELL DISTRIBUTION WIDTH 19.7 % (11.5-15.0)
[2023-07-12 04:23] LABS: CALCIUM, SERUM 10.6 mg/dL (8.5-10.1); CARBON DIOXIDE 27 mmol/L (21-32); CHLORIDE 111 mmol/L (98-107); GLUCOSE 128 mg/dL (74-106); POTASSIUM 4.9 mmol/L (3.5-5.1); SODIUM SERUM 142 mmol/L (136-145)
[2023-07-12 04:31] LABS: UREA NITROGEN, BLOOD 107 mg/dL (7-18); VANCOMYCIN,TROUGH 28 ug/ml (10-20)
[2023-07-12] MEDS: BLOOD SUGAR DIAGNOSTIC 1 EACH STRIP IN SCH ×4 (05:35→23:49)
[2023-07-12] MEDS: VANCOMYCIN 500 MG in IV D5W 100ml IV SCH (05:36)
[2023-07-12] MEDS: SODIUM BICARBONATE SYR 100 MEQ in IV 1/2NS 1000 ML 1,000 ML IV SCH (07:00)
[2023-07-12] MEDS: FERROUS SULFATE UDC 300 MG/5 ML UDC GT SCH ×2 (08:08→16:56)
[2023-07-12] MEDS: THIAMINE HCL 100 MG TABLET GT SCH (08:08)
[2023-07-12] MEDS: ASPIRIN 81 MG TAB.CHEW GT SCH (08:08)
[2023-07-12] MEDS: ARGININE/GLUTAMINE/CALCIUM BMB 1 EACH POWD.PACK GT SCH ×2 (08:08→16:57)
[2023-07-12] MEDS: BACLOFEN (10 MG) 10 MG TABLET GT SCH ×3 (08:08→16:56)
[2023-07-12] MEDS: PANTOPRAZOLE 40 MG VIAL IV SCH (08:09)
[2023-07-12] MEDS: PHENYTOIN SODIUM IV 100 MG/2ML VIAL IV SCH ×2 (08:09→20:56)
[2023-07-12] MEDS: LACOSAMIDE ORAL SOLN 50 MG/5 ML UDC GT SCH ×2 (08:09→20:56)
[2023-07-12] MEDS: COLLAGENASE 30 GM TUBE TP SCH (08:10)
[2023-07-12] MEDS: THERAHONEY GEL 1.5 OZ TUBE TP SCH (08:10)
[2023-07-12] MEDS: DAKINS FULL STRENGTH (0.5%) 480 ML BOTTLE TOP SCH (08:12)
[2023-07-12] MEDS: HYDROGEL DRESSING 90 GM TUBE TP SCH (08:12)
[2023-07-12] MEDS: LEVETIRACETAM (500MG) 750 MG in IV NS 0.9% 100 ML IV SCH ×2 (08:56→20:57)
[2023-07-12] MEDS: CHLORHEXIDINE GLUCONATE 15 ML UDC MM SCH ×2 (08:56→20:56)
[2023-07-12 11:40] LABS: HIV-1 p24 ANTIGEN NON REACTIVE (NONREACTIVE); HIV-1/2 ANTIBODY NON REACTIVE (NONREACTIVE)
[2023-07-12] MEDS: NOREPINEPHRINE 8 MG in IV NS 0.9% 242 ML IV PRN (12:09)
[2023-07-12] MEDS: IV D5/ 0.9% NACL 1,000 ML IV PRN ×2 (12:16→23:51)
[2023-07-12] MEDS: NEPRO 1,000 ML BOTTLE GT PRN (12:30)
[2023-07-12 14:03] LABS: ABG BASE EXCESS 2.5 mmol/L; ABG OXYGEN SATURATION 85.9 % (92.0-98.5); ABG PCO2 53.1 mmHg (35.0-45.0); ABG PO2 54.9 mmHg (75.0-100.0); ABG TOTAL HEMOGLOBIN 9.2 G/dL (13.5-18.0); COHb 0.3 % (0.5-1.5); MetHb 0.5 % (0.0-1.5); O2Hb 85.2 % (94.0-97.0)
[2023-07-12] MEDS: ASCORBIC ACID 500 MG TABLET GT SCH (17:00)
[2023-07-13] VITALS (88 sets, daily range): BP systolic 69–137; BP diastolic 44–101; TEMP 97–98.6; O2SAT 77–96
[2023-07-13] MEDS: NOREPINEPHRINE 8 MG in IV NS 0.9% 242 ML IV PRN ×2 (02:48→13:55)
[2023-07-13 05:44] LABS: CALCIUM, SERUM 9.6 mg/dL (8.5-10.1); CARBON DIOXIDE 28 mmol/L (21-32); CHLORIDE 112 mmol/L (98-107); CREATININE 2.3 mg/dL (0.6-1.3); GLUCOSE 217 mg/dL (74-106); POTASSIUM 4.4 mmol/L (3.5-5.1); SODIUM SERUM 146 mmol/L (136-145)
[2023-07-13] MEDS: BLOOD SUGAR DIAGNOSTIC 1 EACH STRIP IN SCH ×4 (05:50→23:49)
[2023-07-13 06:03] LABS: UREA NITROGEN, BLOOD 107 mg/dL (7-18)
[2023-07-13] MEDS: INSULIN REGULAR, HUMAN 100 UNIT/ML 3 ML VIAL SQ PRN ×3 (06:24→17:20)
[2023-07-13] MEDS: PANTOPRAZOLE 40 MG VIAL IV SCH (07:35)
[2023-07-13] MEDS: ASPIRIN 81 MG TAB.CHEW GT SCH (09:07)
[2023-07-13] MEDS: PHENYTOIN SODIUM IV 100 MG/2ML VIAL IV SCH ×2 (09:08→21:15)
[2023-07-13] MEDS: THIAMINE HCL 100 MG TABLET GT SCH (09:08)
[2023-07-13] MEDS: BACLOFEN (10 MG) 10 MG TABLET GT SCH ×3 (09:08→17:04)
[2023-07-13] MEDS: FERROUS SULFATE UDC 300 MG/5 ML UDC GT SCH ×2 (09:08→17:04)
[2023-07-13] MEDS: CHLORHEXIDINE GLUCONATE 15 ML UDC MM SCH ×2 (09:09→21:15)
[2023-07-13] MEDS: ARGININE/GLUTAMINE/CALCIUM BMB 1 EACH POWD.PACK GT SCH (09:09)
[2023-07-13] MEDS: LACOSAMIDE ORAL SOLN 50 MG/5 ML UDC GT SCH ×2 (09:09→21:15)
[2023-07-13] MEDS: THERAHONEY GEL 1.5 OZ TUBE TP SCH (09:12)
[2023-07-13] MEDS: DAKINS FULL STRENGTH (0.5%) 480 ML BOTTLE TOP SCH (09:12)
[2023-07-13] MEDS: HYDROGEL DRESSING 90 GM TUBE TP SCH (09:13)
[2023-07-13] MEDS: METOCLOPRAMIDE HCL 10 MG/2 ML VIAL IV SCH ×3 (09:59→21:15)
[2023-07-13] MEDS: LEVETIRACETAM (500MG) 750 MG in IV NS 0.9% 100 ML IV SCH (10:43)
[2023-07-13] MEDS: NEPRO 1,000 ML BOTTLE GT PRN (12:01)
[2023-07-13] MEDS: MEROPENEM 500 MG in IV NS 0.9% 50 ML IV SCH ×2 (12:01→23:41)
[2023-07-13] MEDS: IV D5/ 0.9% NACL 1,000 ML IV PRN (12:08)
[2023-07-13] MEDS: LEVETIRACETAM SOL (5 ML) 100 MG/ML UDC GT SCH (21:15)
[2023-07-14] VITALS (106 sets, daily range): BP systolic 60–141; BP diastolic 40–76; TEMP 97.1–97.5; O2SAT 80–89
[2023-07-14] MEDS: IV D5/ 0.9% NACL 1,000 ML IV PRN (00:56)
[2023-07-14 02:30] LABS: ABG BASE EXCESS -3.5 mmol/L; ABG PCO2 66.8 mmHg (35.0-45.0); ABG PH 7.196 (7.350-7.450); ABG PO2 46.4 mmHg (75.0-100.0); ABG TOTAL HEMOGLOBIN 10.1 G/dL (13.5-18.0); AaDO2 599.8 mmHg; MetHb 0.4 % (0.0-1.5); O2Hb 72.7 % (94.0-97.0); SITE, ABG Right Radial
[2023-07-14] MEDS: NOREPINEPHRINE 8 MG in IV NS 0.9% 242 ML IV PRN ×4 (02:40→18:15)
[2023-07-14] MEDS ORDERED: Sodium Bicarbonate 50 MEQ in IV NS 0.9% 1,000 ML IV PRN (04:00)
[2023-07-14] MEDS ORDERED: SODIUM BICARBONATE SYR 50 MEQ/50 ML DISP.SYRIN ONE (04:03)
[2023-07-14] MEDS: METOCLOPRAMIDE HCL 10 MG/2 ML VIAL IV SCH ×3 (05:04→20:19)
[2023-07-14] MEDS: BLOOD SUGAR DIAGNOSTIC 1 EACH STRIP IN SCH ×3 (05:04→17:22)
[2023-07-14 05:20] LABS: EOSINOPHILS # (AUTO) 0.3 K/uL (0.0-0.7); EOSINOPHILS % (AUTO) 0.5 % (0.0-6.0); HEMATOCRIT 28 % (39-51); HEMOGLOBIN 8.8 g/dL (13.5-17.5); LYMPHOCYTES % (AUTO) 1.8 % (20.0-44.0); MEAN CORPUSCULAR HEMOGLOBIN 29 PG (26.0-33.0); MEAN CORPUSCULAR HGB CONC 31 g/dl (31.0-36.0); MEAN CORPUSCULAR VOLUME 92 fL (80-96); MONOCYTES # (AUTO) 0.8 K/uL (0.1-1.30); MONOCYTES % (AUTO) 1.4 % (2.0-12.0); NEUTROPHILS # (AUTO) 53.9 K/uL (1.8-8.9); NEUTROPHILS % (AUTO) 96.3 % (43.0-81.0); PLATELET COUNT (AUTO) 115 K/uL (150-450); RED BLOOD CELL COUNT(AUTO) 3.03 MIL/uL (4.5-6.0); RED CELL DISTRIBUTION WIDTH 20.4 % (11.5-15.0)
[2023-07-14 05:45] LABS: CALCIUM, SERUM 9.2 mg/dL (8.5-10.1); CARBON DIOXIDE 24 mmol/L (21-32); CHLORIDE 112 mmol/L (98-107); CREATININE 2.4 mg/dL (0.6-1.3); GLUCOSE 122 mg/dL (74-106); POTASSIUM 4.9 mmol/L (3.5-5.1); SODIUM SERUM 144 mmol/L (136-145)
[2023-07-14 05:50] LABS: UREA NITROGEN, BLOOD 105 mg/dL (7-18)
[2023-07-14 05:55] LABS: ANISOCYTOSIS 1+; LYMPHOCYTES % (MANUAL) 3 % (16-48); MONOCYTES % (MANUAL) 1 % (0-11.0); NEUTROPHILS % (MANUAL) 96 (42-76); PLATELET ESTIMATE DECREASED
[2023-07-14] MEDS ORDERED: VANCOMYCIN 500 MG in IV D5W 100ml IV SCH (06:00)
[2023-07-14] MEDS: ASPIRIN 81 MG TAB.CHEW GT SCH (08:30)
[2023-07-14] MEDS: FERROUS SULFATE UDC 300 MG/5 ML UDC GT SCH ×2 (08:31→16:30)
[2023-07-14] MEDS: BACLOFEN (10 MG) 10 MG TABLET GT SCH ×3 (08:31→16:29)
[2023-07-14] MEDS: LEVETIRACETAM SOL (5 ML) 100 MG/ML UDC GT SCH ×2 (08:31→20:10)
[2023-07-14] MEDS: THIAMINE HCL 100 MG TABLET GT SCH (08:31)
[2023-07-14] MEDS: PHENYTOIN SODIUM IV 100 MG/2ML VIAL IV SCH ×2 (08:31→20:11)
[2023-07-14] MEDS: PANTOPRAZOLE 40 MG/PACK PACK GT SCH (08:31)
[2023-07-14] MEDS: CHLORHEXIDINE GLUCONATE 15 ML UDC MM SCH ×2 (08:32→20:12)
[2023-07-14] MEDS ORDERED: Sodium Bicarbonate 50 MEQ in IV NS 0.9% 1,000 ML IV SCH ×2 (08:33→14:00)
[2023-07-14] MEDS: VIT B CMPLX 3/FA/VIT C/BIOTIN 1 TAB TABLET PO SCH (08:40)
[2023-07-14] MEDS: HYDROGEL DRESSING 90 GM TUBE TP SCH (08:41)
[2023-07-14] MEDS: DAKINS FULL STRENGTH (0.5%) 480 ML BOTTLE TOP SCH (08:41)
[2023-07-14] MEDS: LACOSAMIDE ORAL SOLN 50 MG/5 ML UDC GT SCH ×2 (09:00→20:10)
[2023-07-14] MEDS: MEROPENEM 500 MG in IV NS 0.9% 50 ML IV SCH (11:49)
[2023-07-14] MEDS ORDERED: ALLOPURINOL 100 MG TABLET PO ONE (15:00)
[2023-07-14] MEDS: ACYCLOVIR 200 MG CAPSULE PO SCH (16:29)
[2023-07-14 17:18] LABS: BILIRUBIN,DIRECT 0.1 mg/dL (0.0-0.2); BILIRUBIN,TOTAL 0.2 mg/dL (0.2-1.0)
[2023-07-14] MEDS: Sodium Bicarbonate 100 MEQ in IV NS 0.9% 1,000 ML IV SCH (17:22)
[2023-07-14] MEDS: VORICONAZOLE 200 MG TABLET PO SCH (20:12)
[2023-07-14 22:45] LABS: RHEUMATOID FACTOR SCREEN NEGATIVE (NEGATIVE)
[2023-07-15] VITALS (53 sets, daily range): BP systolic 96–138; BP diastolic 22–95; TEMP 97.1–97.5; O2SAT 57–97
[2023-07-15] MEDS: NOREPINEPHRINE 8 MG in IV NS 0.9% 242 ML IV PRN ×4 (00:08→10:47)
[2023-07-15] MEDS: MEROPENEM 500 MG in IV NS 0.9% 50 ML IV SCH ×2 (00:11→11:24)
[2023-07-15] MEDS: BLOOD SUGAR DIAGNOSTIC 1 EACH STRIP IN SCH ×3 (00:23→11:24)
[2023-07-15] MEDS: INSULIN REGULAR, HUMAN 100 UNIT/ML 3 ML VIAL SQ PRN ×2 (00:29→05:48)
[2023-07-15] MEDS: Sodium Bicarbonate 100 MEQ in IV NS 0.9% 1,000 ML IV SCH ×2 (04:15→14:38)
[2023-07-15] MEDS: METOCLOPRAMIDE HCL 10 MG/2 ML VIAL IV SCH ×2 (05:52→12:04)
[2023-07-15] MEDS: ASPIRIN 81 MG TAB.CHEW GT SCH (08:28)
[2023-07-15] MEDS: THIAMINE HCL 100 MG TABLET GT SCH (08:28)
[2023-07-15] MEDS: FERROUS SULFATE UDC 300 MG/5 ML UDC GT SCH (08:28)
[2023-07-15] MEDS: PANTOPRAZOLE 40 MG/PACK PACK GT SCH (08:29)
[2023-07-15] MEDS: PHENYTOIN SODIUM IV 100 MG/2ML VIAL IV SCH (08:29)
[2023-07-15] MEDS: ACYCLOVIR 200 MG CAPSULE PO SCH (08:29)
[2023-07-15] MEDS: CHLORHEXIDINE GLUCONATE 15 ML UDC MM SCH (08:29)
[2023-07-15] MEDS: LEVETIRACETAM SOL (5 ML) 100 MG/ML UDC GT SCH (08:29)
[2023-07-15] MEDS: LACOSAMIDE ORAL SOLN 50 MG/5 ML UDC GT SCH (08:29)
[2023-07-15] MEDS: BACLOFEN (10 MG) 10 MG TABLET GT SCH ×2 (08:30→12:03)
[2023-07-15] MEDS: VIT B CMPLX 3/FA/VIT C/BIOTIN 1 TAB TABLET PO SCH (08:30)
[2023-07-15] MEDS: VORICONAZOLE 200 MG TABLET PO SCH (08:34)
[2023-07-15] MEDS: HYDROGEL DRESSING 90 GM TUBE TP SCH (08:44)
[2023-07-15] MEDS: DAKINS FULL STRENGTH (0.5%) 480 ML BOTTLE TOP SCH (08:45)
[2023-07-15] MEDS ORDERED: NOREPINEPHRINE 32 MG in IV NS 0.9% 250 ML IV PRN (11:00)
[2023-07-15 11:20] LABS: BASOPHILS % (AUTO) 0.1 % (0.0-2.0); EOSINOPHILS # (AUTO) 0.3 K/uL (0.0-0.7); EOSINOPHILS % (AUTO) 0.7 % (0.0-6.0); HEMATOCRIT 29 % (39-51); LYMPHOCYTES # (AUTO) 1.5 K/uL (0.8-4.8); LYMPHOCYTES % (AUTO) 2.9 % (20.0-44.0); MEAN CORPUSCULAR HEMOGLOBIN 29 PG (26.0-33.0); MEAN CORPUSCULAR HGB CONC 31 g/dl (31.0-36.0); MEAN CORPUSCULAR VOLUME 94 fL (80-96); MONOCYTES # (AUTO) 0.8 K/uL (0.1-1.30); MONOCYTES % (AUTO) 1.5 % (2.0-12.0); NEUTROPHILS # (AUTO) 48.3 K/uL (1.8-8.9); NEUTROPHILS % (AUTO) 94.8 % (43.0-81.0); PLATELET COUNT (AUTO) 77 K/uL (150-450); RED BLOOD CELL COUNT(AUTO) 3.07 MIL/uL (4.5-6.0); RED CELL DISTRIBUTION WIDTH 20.8 % (11.5-15.0)
[2023-07-15 11:22] LABS: WHITE BLOOD COUNT (AUTO) 50.9 K/uL (4.3-11.0)
[2023-07-15 11:34] LABS: INR 1.43 (0.91-1.10); PROTHROMBIN TIME 14.8 SECS (9.2-11.1)
[2023-07-15 11:36] LABS: D-DIMER 14.75 mg/L(FEU (0.17-0.50)
[2023-07-15 12:39] LABS: CALCIUM, SERUM 8.1 mg/dL (8.5-10.1); CARBON DIOXIDE 23 mmol/L (21-32); CHLORIDE 109 mmol/L (98-107); CREATININE 2.6 mg/dL (0.6-1.3); GLUCOSE 220 mg/dL (74-106); POTASSIUM 5.4 mmol/L (3.5-5.1); SODIUM SERUM 143 mmol/L (136-145)
[2023-07-15 12:42] LABS: UREA NITROGEN, BLOOD 101 mg/dL (7-18)
[2023-07-15] MEDS ORDERED: VANCOMYCIN 500 MG in IV D5W 100ml IV SCH (15:00)
[2023-07-15] MEDS ORDERED: EPINEPHRINE (1:10,000) SYRINGE 1 MG/10 ML DISP.SYRIN IVP ONE (16:57)
[2023-07-15 17:19] LABS: BAND % (MANUAL) 6 % (0.0-5.0); EOSINOPHILS % (MANUAL) 1 % (0-4); LYMPHOCYTES % (MANUAL) 8 % (16-48); MONOCYTES % (MANUAL) 1 % (0-11.0); NEUTROPHILS % (MANUAL) 84 (42-76); PLATELET ESTIMATE DECRE
[2023-07-15 17:20] LABS: ANISOCYTOSIS 1+; ROULEAUX 1+
[2023-07-16 08:06] LABS: IMMUNOGLOBULIN A, SERUM 296 mg/dL (61-437); IMMUNOGLOBULIN G, SERUM 1139 mg/dL (603-1613); IMMUNOGLOBULIN M, SERUM 119 mg/dL (15-143)
[2023-07-16 12:09] LABS: FREE KAPPA LT CHAINS SERUM 203.2 mg/L (3.3-19.4); KAPPA/LAMBDA RATIO SERUM 1.63 (0.26-1.65)
[2023-07-16 13:11] LABS: *ANA ANTI-CENTROMERE B AB <0.2 AI (0.0-0.9); *ANA ANTI-DNA(DS) AB, QN <1 IU/mL (0-9); *ANA ANTI-JO-1 <0.2 AI (0.0-0.9); *ANA ANTICHROMATIN ANTIBODY <0.2 AI (0.0-0.9); *ANA RNP ANTIBODIES 1.5 AI (0.0-0.9); *ANA SJOGREN'S ANTI-SS-A <0.2 AI (0.0-0.9); *ANA SJOGREN'S ANTI-SS-B <0.2 AI (0.0-0.9); *ANAANTI-SCLERODERMA-70 AB <0.2 AI (0.0-0.9); *ANASMITH AB <0.2 AI (0.0-0.9)
== END 2023-07-15 17:58 | DRG 853 ==
LOC: ER 21:18 → TELE1 07-07 02:10 → ICU 07-07 11:05 → TELE1 07-09 19:43 → TELE-TD 07-09 20:03 → ICU 07-10 13:17
PROVIDERS: ADMIT Nurse Practitioner Family; ATTEND Internal Medicine
PROC: 5A1955Z Respiratory Ventilation, Greater than 96 Consecutive Hours (ICD-10-PCS; principal; 2023-07-07)
PROC: 05H533Z Insertion of Infusion Device into Right Subclavian Vein, Percutaneous Approach (ICD-10-PCS; 2023-07-08)
PROC: B546ZZA Ultrasonography of Right Subclavian Vein, Guidance (ICD-10-PCS; 2023-07-08)
PROC: 0KBN0ZZ Excision of Right Hip Muscle, Open Approach (ICD-10-PCS; 2023-07-09)
PROC: 0KBP0ZZ Excision of Left Hip Muscle, Open Approach (ICD-10-PCS; 2023-07-09)
PROC: 30233N1 Transfusion of Nonautologous Red Blood Cells into Peripheral Vein, Percutaneous Approach (ICD-10-PCS; 2023-07-11)
PROC: 02HV33Z Insertion of Infusion Device into Superior Vena Cava, Percutaneous Approach (ICD-10-PCS; 2023-07-11)
PROC: B548ZZA Ultrasonography of Superior Vena Cava, Guidance (ICD-10-PCS; 2023-07-11)
DX: A41.9 Sepsis, unspecified organism (principal); E43 Unspecified severe protein-calorie malnutrition; L89.224 Pressure ulcer of left hip, stage 4; L89.154 Pressure ulcer of sacral region, stage 4; I21.A1 Myocardial infarction type 2; L89.324 Pressure ulcer of left buttock, stage 4; N17.0 Acute kidney failure with tubular necrosis; R53.2 Functional quadriplegia; R65.21 Severe sepsis with septic shock; J95.851 Ventilator associated pneumonia; D68.69 Other thrombophilia; D61.818 Other pancytopenia; E87.1 Hypo-osmolality and hyponatremia; E87.20 Acidosis, unspecified; G93.1 Anoxic brain damage, not elsewhere classified; N39.0 Urinary tract infection, site not specified; R64 Cachexia; Z99.11 Dependence on respirator [ventilator] status; J96.10 Chronic respiratory failure, unspecified whether with hypoxia or hypercapnia; L97.329 Non-pressure chronic ulcer of left ankle with unspecified severity; L97.819 Non-pressure chronic ulcer of other part of right lower leg with unspecified severity; Z16.24 Resistance to multiple antibiotics; D63.8 Anemia in other chronic diseases classified elsewhere; B96.4 Proteus (mirabilis) (morganii) as the cause of diseases classified elsewhere; E86.0 Dehydration; E86.1 Hypovolemia; E87.5 Hyperkalemia; E83.52 Hypercalcemia; E88.09 Other disorders of plasma-protein metabolism, not elsewhere classified; F43.10 Post-traumatic stress disorder, unspecified; G40.909 Epilepsy, unspecified, not intractable, without status epilepticus; M24.561 Contracture, right knee; M24.562 Contracture, left knee; N18.9 Chronic kidney disease, unspecified; R13.10 Dysphagia, unspecified; Z86.73 Personal history of transient ischemic attack (TIA), and cerebral infarction without residual deficits; Z87.440 Personal history of urinary (tract) infections; Z87.891 Personal history of nicotine dependence; Z93.0 Tracheostomy status; Z93.1 Gastrostomy status; F03.90 Unspecified dementia, unspecified severity, without behavioral disturbance, psychotic disturbance, mood disturbance, and anxiety; E11.51 Type 2 diabetes mellitus with diabetic peripheral angiopathy without gangrene; Z86.74 Personal history of sudden cardiac arrest; B96.89 Other specified bacterial agents as the cause of diseases classified elsewhere; Z20.822 Contact with and (suspected) exposure to COVID-19; E11.22 Type 2 diabetes mellitus with diabetic chronic kidney disease; M24.552 Contracture, left hip; M24.551 Contracture, right hip; M24.522 Contracture, left elbow; M24.521 Contracture, right elbow; M24.532 Contracture, left wrist; M24.531 Contracture, right wrist; I70.243 Atherosclerosis of native arteries of left leg with ulceration of ankle; I70.238 Atherosclerosis of native arteries of right leg with ulceration of other part of lower leg; Z68.28 Body mass index [BMI] 28.0-28.9, adult; R91.8 Other nonspecific abnormal finding of lung field; Z74.09 Other reduced mobility; J98.2 Interstitial emphysema; Y83.3 Surgical operation with formation of external stoma as the cause of abnormal reaction of the patient, or of later complication, without mention of misadventure at the time of the procedure; Y92.129 Unspecified place in nursing home as the place of occurrence of the external cause; Z66 Do not resuscitate
CPT/HCPCS: 31720; 36410; 36415; 36569; 36600; 71045-TC; 76770-TC; 80048-TC; 80053-TC; 80061-TC; 80076-TC; 80185-TC; 80202-TC; 81001; 82247-TC; 82248-TC; 82533; 82550-TC; 82607-TC; 82728-TC; 82784; 82962-TC; 83540-TC; 83605-TC; 83615-TC; 83735-TC; 83970; 84100-TC; 84155; 84165; 84443-TC; 84484-TC; 85025-TC; 85396; 85730-TC; 86225; 86235; 86334; 86431-TC; 86704; 86705; 86706; 86803; 86850-TC; 87040-TC; 87081-TC; 87086-TC; 87340; 87806; 93307-TC; 94002-TC; 94003-TC; 94760-TC; 94799-TC; 99082-TC; A4223; A4623; A4624; A6248; A6253; A6403; A7526; C9113; C9803; G0378; J0171; J0456; J0461; J0692; J0696; J1165; J1815; J1953; J2185; J2405; J2765; J3370; J3480; J3490; J7030; J7042; J7050; J7060; J7070; P9016